=== PATIENT | male | born 1975 | race Caucasian/White ===

== ENCOUNTER 2017-02-03 12:11 | Emergency (ER) | payer MEDICARE, MEDICAID ==
--- NOTE | 2017-02-03 12:39 | ER Document Report ---
ED Extremity Problem, Lower - General Chief Complaint: Leg Swelling Stated Complaint: LOWER EXTREMITY SWELLING Notes: Patient is a 41-year-old male with history of autism presenting to the emergency department for swelling and pain to the left foot and ankle. This was onset yesterday. Patient's caretakers with him. Patient states that she was not with him yesterday, so she is unsure if he has tripped or fallen or injured himself. Patient saw a PA at his urgent care this morning who sent him over to the emergency department for concerns of possible DVT . TRAVEL OUTSIDE OF THE [place] IN LAST 30 DAYS: No - Related Data Allergies/Adverse Reactions: lactose Allergy (Verified 08/23/16 17:08) Penicillins Allergy (Verified 08/23/16 17:08) Past Medical History - Social History Family History: Reviewed & Not Pertinent Patient has suicidal ideation: No Patient has homicidal ideation: No - Past Medical History Cardiac Medical History: Denies: Hx Coronary Artery Disease, Hx Heart Attack, Hx Hypertension Pulmonary Medical History: Denies: Hx Asthma, Hx Bronchitis, Hx COPD, Hx Pneumonia Neurological Medical History: Denies: Hx Cerebrovascular Accident, Hx Seizures Renal/ Medical History: Denies: Hx Peritoneal Dialysis Musculoskeltal Medical History: Denies Hx Arthritis - Immunizations Hx Diphtheria, Pertussis, Tetanus Vaccination: No Physical Exam - Vital signs Vitals: Pulse Resp BP Pulse Ox 90 18 108/78 96 02/03/17 12:18 02/03/17 12:18 02/03/17 12:18 02/03/17 12:18 Course - Vital Signs Vital signs: Temp Pulse Resp BP Pulse Ox 90 18 108/78 96 02/03/17 12:18 02/03/17 12:18 02/03/17 12:18 02/03/17 12:18
--- NOTE | 2017-02-03 13:16 | ER Document Report ---
ED Medical Screen (RME) - General Time seen by provider: 12:30 TRAVEL OUTSIDE OF THE [place] IN LAST 30 DAYS: No - General Chief Complaint: Leg Swelling Stated Complaint: LOWER EXTREMITY SWELLING Notes: Patient is a 41-year-old male with history of autism presenting to the emergency department for swelling and pain to the left foot and ankle. This was onset yesterday. Patient's caretakers with him. Patient states that she was not with him yesterday, so she is unsure if he has tripped or fallen or injured himself. Patient saw a PA at his urgent care this morning who sent him over to the emergency department for concerns of possible DVT . (PAUL TENA) - Related Data Allergies/Adverse Reactions: lactose Allergy (Verified 08/23/16 17:08) Penicillins Allergy (Verified 08/23/16 17:08) Past Medical History - Past Medical History Cardiac Medical History: Denies: Hx Coronary Artery Disease, Hx Heart Attack, Hx Hypertension Pulmonary Medical History: Denies: Hx Asthma, Hx Bronchitis, Hx COPD, Hx Pneumonia Neurological Medical History: Denies: Hx Cerebrovascular Accident, Hx Seizures Renal/ Medical History: Denies: Hx Peritoneal Dialysis Musculoskeltal Medical History: Denies Hx Arthritis - Immunizations Hx Diphtheria, Pertussis, Tetanus Vaccination: No Physical Exam - Extremities General lower extremity: Other - Left calf tenderness, patient winces with touch , patient has good perfusion and pulses. Course - Re-evaluation Re-evalutation: 02/03/17 13:40 Patient with history of autism is here with his caregiver chief complaint of these limping since yesterday no known injury no known fall he is noncommunicative very agitated. On examination there might be little bit of mild swelling in the left calf otherwise get good pulses and perfusion he went to urgent care was uncooperative so they sent him here. Terms rest of his physical exam he is at baseline. I ordered an x-ray of his knee ankle foot an ultrasound he got over to radiology for gout 1 allow him to do the test. This time I have downgraded him over 2.5 she can be placed in a quiet room his mother is on the way take care of him I talked to Mar Jean-Baptiste his the APC is going to take care of him over and pod 5 to do his further assessment and evaluation and disposition. 02/03/17 13:41 I personally performed the services described in the documentation reviewed the documentation recorded by my scribe in my presence and it accurately and completely records my words and actions (VINICIO WHALEN) - Vital Signs Vital signs: Temp Pulse Resp BP Pulse Ox 90 18 108/78 96 02/03/17 12:18 02/03/17 12:18 02/03/17 12:18 02/03/17 12:18 Scribe Documentation - Scribe Written by Scribe:: Paul Tena 02/03/17 13:15 acting as scribe for :: Guerrero
--- NOTE | 2017-02-03 14:09 | ER Document Report ---
ED Extremity Problem, Lower - General Chief Complaint: Leg Swelling Stated Complaint: LOWER EXTREMITY SWELLING Mode of Arrival: Ambulatory Information source: Patient TRAVEL OUTSIDE OF THE [place] IN LAST 30 DAYS: No - HPI Patient complains to provider of: Pain Notes: Patient here with his caregiver. Patient is autistic and nonverbal. According to his caregiver yesterday when he arrived home from adult daycare they noticed he seemed to be limping on his left leg they were concerned that he had pain in his left calf. The patient is unable to give me any more information than this. The caregiver denies any fevers or known injury. There's been no vomiting. No other complaints. Not able to get an entire history or review of systems due to the patient's autism and lack of communication. - Related Data Allergies/Adverse Reactions: lactose Allergy (Verified 02/03/17 14:06) Penicillins Allergy (Verified 02/03/17 14:06) Past Medical History - Social History Smoking Status: Unknown if Ever Smoked Family History: Reviewed & Not Pertinent Patient has suicidal ideation: No Patient has homicidal ideation: No - Past Medical History Cardiac Medical History: Reports: Hx Hypercholesterolemia, Hx Hypertension Denies: Hx Coronary Artery Disease, Hx Heart Attack Pulmonary Medical History: Denies: Hx Asthma, Hx Bronchitis, Hx COPD, Hx Pneumonia Neurological Medical History: Denies: Hx Cerebrovascular Accident, Hx Seizures Renal/ Medical History: Denies: Hx Peritoneal Dialysis GI Medical History: Reports: Hx Gastroesophageal Reflux Disease Musculoskeltal Medical History: Denies Hx Arthritis Surgical Hx: Negative - Immunizations Hx Diphtheria, Pertussis, Tetanus Vaccination: No Review of Systems - Review of Systems -: Yes ROS unobtainable due to patient's medical condition Physical Exam - Vital signs Vitals: Pulse Resp BP Pulse Ox 90 18 108/78 96 02/03/17 12:18 02/03/17 12:18 02/03/17 12:18 02/03/17 12:18 - Notes Notes: GENERAL: alert, cooperative, nontoxic, no distress. HEAD: normocephalic, atraumatic EYES: conjunctiva pink without discharge, no external redness or swelling. EARS: no external swelling, no external redness NOSE: atraumatic, no external swelling MOUTH/THROAT: mucous membranes moist and pink NECK: soft, supple, full range of motion, no meningismus. CHEST: no distress, lungs clear and equal throughout. No wheezing, rales, rhonchi. CARDIAC: regular rate and rhythm, no murmur, normal capillary refill, normal pulses. BACK: full range of motion, no CVA tenderness. EXTREMITIES: full range of motion of all extremities. No redness, no swelling. No obvious tenderness on exam of the left leg. He normal pulse and sensation. NEURO: alert and oriented 3, no focal deficits, full range of motion of all extremities. PYSCH: appropriate mood, affect. Patient is cooperative. SKIN: pink, warm, dry, no rash. Course - Re-evaluation Re-evalutation: 02/03/17 15:57 Patient's nontoxic. Stable vitals. The patient has a completely benign exam at this time. Again the patient is autistic therefore it is very difficult getting any information from him. X-rays of the lower extremity and venous duplex are all negative. He has no obvious signs of infection at this time. 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 She verbalized an understanding of this. The patient's emergency department workup and current diagnosis were explained to the patient and or family. Follow-up instructions were provided. Medications if prescribed were discussed. Instructions for when to return to the emergency department including specific worrisome symptoms were discussed with the patient and/or family. - Vital Signs Vital signs: Temp Pulse Resp BP Pulse Ox 90 18 108/78 96 02/03/17 12:18 02/03/17 12:18 02/03/17 12:18 02/03/17 12:18 Discharge - Discharge Clinical Impression: Leg pain Qualifiers: Laterality: left Qualified Code(s): M79.605 - Pain in left leg Condition: Stable Disposition: HOME, SELF-CARE Instructions: Leg Pain Nonspecific ([facility]) Additional Instructions: Tylenol and Motrin as needed for pain. Follow up if not better in one week, follow-up sooner for increased pain, fever, redness, swelling, any further concerns.
[2017-02-03 16:05] VITALS: BP 110/70
--- NOTE | 2017-02-03 16:26 | XCELERA REPORT ---
[address] [address] Lower Extremity Venous Evaluation Name: JUAN RAMON MACKAY Age: 41 yrs Gender: Male : 1975 Patient Status: Emergency Patient Location: ER Study Date: 02/03/2017 03:38 PM Procedure: Color flow and duplex imaging of the veins of the left lower extremity as well as the right Common Femoral vein. Reason For Study: lle pain swelling r/o dvt autism Ordering Physician: VINICIO WHALEN Performed By: Kirsty Morales Right Sided Venous Evaluation The right common femoral vein is fully compressible. Spontaneous and phasic flow is present in the right common femoral vein. Left Sided Venous Evaluation Normal vessel filling wall to wall, compression and augmentation as well as Colour flow down to the infrageniculate veins. Critical Findings Called in to Vandana Krishna at 1530. Interpretation Summary No duplex evidence of DVT or obstruction in the left lower extremity nor in the right Common Femoral vein. : VINICIO WHALEN > Emeterio Lambert
== END 2017-02-03 16:03 | disposition home or self-care (01) ==
LOC: ER 12:11
DX: M79.605 Pain in left leg (principal); F84.0 Autistic disorder; I10 Essential (primary) hypertension; Z88.0 Allergy status to penicillin
CPT/HCPCS: 93971; 99284

== ENCOUNTER 2019-01-18 14:02 | Emergency (ER) | payer MEDICARE, MEDICAID ==
--- NOTE | 2019-01-18 14:57 | ER Document Report ---
ED Medical Screen (RME) - General Chief Complaint: Constipation Stated Complaint: CONSTIPATION Time Seen by Provider: 01/18/19 14:52 Primary Care Provider: BON MARISCAL MD [Primary Care Provider] - Follow up as needed TRAVEL OUTSIDE OF THE [place] 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 He is still urinating normally. He is eating and drinking without difficulty. Patient does not do well with getting a blood pressure or blood draws. Denies GRIGGS, fever, neck pain, URI, CP, or rash. I have treated and performed a rapid initial assessment of this patient. A comprehensive ED assessment and evaluation of the patient, analysis of test results and completion of medical decision making process will be conducted by additional ED providers. PHYSICAL EXAMINATION: GENERAL: Well-appearing, well-nourished and in no acute distress. A&Ox4. Answers questions appropriately. ABDOMEN: distended with mild generalized tenderness. BS present. - Related Data Allergies/Adverse Reactions: lactose Allergy (Verified 01/18/19 14:06) Penicillins Allergy (Verified 01/18/19 14:06) Past Medical History - Social History Chew tobacco use (# tins/day): No Frequency of alcohol use: None Drug Abuse: Prescription drugs - Past Medical History Cardiac Medical History: Reports: Hx Hypercholesterolemia, Hx Hypertension Denies: Hx Coronary Artery Disease, Hx Heart Attack Pulmonary Medical History: Denies: Hx Asthma, Hx Bronchitis, Hx COPD, Hx Pneumonia Neurological Medical History: Denies: Hx Cerebrovascular Accident, Hx Seizures Renal/ Medical History: Denies: Hx Peritoneal Dialysis GI Medical History: Reports: Hx Gastroesophageal Reflux Disease Musculoskeltal Medical History: Denies Hx Arthritis - Immunizations Hx Diphtheria, Pertussis, Tetanus Vaccination: No Physical Exam - Vital signs Vitals: Pulse Resp Pulse Ox 95 18 98 01/18/19 14:26 01/18/19 14:26 01/18/19 14:26 Course - Vital Signs Vital signs: Temp Pulse Resp BP Pulse Ox 95 18 98 01/18/19 14:26 01/18/19 14:26 01/18/19 14:26 Doctor's Discharge - Discharge Referrals: BON MARISCAL MD [Primary Care Provider] - Follow up as needed
--- NOTE | 2019-01-18 16:46 | RADIOLOGY REPORT (SQ) ---
EXAM DESCRIPTION: ACUTE ABDOMEN SERIES COMPLETED DATE/TIME: 01/18/2019 3:54 pm REASON FOR STUDY: no BM in 12 days, autistic, abd pain COMPARISON: None. NUMBER OF VIEWS: One view. TECHNIQUE: Upright radiographic image of the abdomen acquired. LIMITATIONS: Patient would not lie down FINDINGS: BOWEL GAS PATTERN: Dilatation of the colon with large amount of fecal material. CALCIFICATIONS: No suspicious calcifications. SOFT TISSUES: No gross mass or suggestion of organomegaly. HARDWARE: None in the abdomen. BONES: No acute fracture. No worrisome bone lesions. OTHER: No other significant finding. IMPRESSION: Obstipation. TECHNICAL DOCUMENTATION: JOB ID: [id number] [employer]- All Rights Reserved Reading location - IP/workstation name: [email or web address]
[2019-01-18] MEDS ORDERED: KETAMINE HCL INJ 500 MG/10 ML VIAL IM ONE (18:39)
[2019-01-18 19:27] LABS: ABSOLUTE BASOPHILS # (AUTO) 0.1 10^3/uL (0.0-0.2); ABSOLUTE LYMPHOCYTES (AUTO) 2.7 10^3/uL (0.5-4.7); ABSOLUTE MONOCYTES (AUTO) 1.1 10^3/uL (0.1-1.4); ABSOLUTE NEUT (AUTO) 7.4 10^3/uL (1.7-8.2); BASOPHILS % (AUTO) 0.5 % (0-2); EOSINOPHILS % (AUTO) 0.4 % (0-6); HEMATOCRIT 40.5 % (37.9-51.0); HEMOGLOBIN 14.1 g/dL (13.5-17.0); LYMPHOCYTES % (AUTO) 23.8 % (13-45); MEAN CORPUSCULAR HEMOGLOBIN 30.4 pg (27.0-33.4); MEAN CORPUSCULAR HGB CONC 34.8 g/dL (32.0-36.0); MEAN CORPUSCULAR VOLUME 87 fl (80-97); MONOCYTES % (AUTO) 9.4 % (3-13); PLATELET COUNT 217 10^3/uL (150-450); RED BLOOD COUNT 4.64 10^6/uL (4.35-5.55); RED CELL DISTRIBUTION WIDTH 13.6 % (11.5-14.0); SEGMENTED NEUTROPHILS % (AUTO) 65.9 % (42-78); TOTAL CELLS COUNTED % (AUTO) 100 %; WHITE BLOOD COUNT 11.2 10^3/uL (4.0-10.5)
[2019-01-18 19:46] LABS: ALANINE AMINOTRANSFERASE 26 U/L (21-72); ALBUMIN 4.9 g/dL (3.5-5.0); ALKALINE PHOSPHATASE 92 U/L (38-126); ANION GAP 17 (5-19); ASPARTATE AMINO TRANSFERASE 21 U/L (17-59); BILIRUBIN,DIRECT 0.2 mg/dL (0.0-0.4); BILIRUBIN,TOTAL 0.2 mg/dL (0.2-1.3); BLOOD UREA NITROGEN 10 mg/dL (7-20); CALCIUM 9.7 mg/dL (8.4-10.2); CARBON DIOXIDE 20 mmol/L (22-30); CHLORIDE 98 mmol/L (98-107); GLUCOSE 104 mg/dL (75-110); POTASSIUM 4.6 mmol/L (3.6-5.0); SODIUM 134.9 mmol/L (137-145); TOTAL PROTEIN 7.6 g/dL (6.3-8.2)
--- NOTE | 2019-01-18 20:05 | RADIOLOGY REPORT (SQ) ---
CT ABDOMEN PELVIS WITH IV CONTRAST HISTORY: Abdominal pain. COMPARISON: None. TECHNIQUE: CT scan of the abdomen and pelvis was performed with IV contrast. This exam was performed according to our departmental dose-optimization program, which includes automated exposure control, adjustment of the mA and/or kV according to patient size and/or use of iterative reconstruction technique. FINDINGS: The lung bases are clear without pleural or pericardial effusions. There is a small sliding hiatal hernia. The liver, spleen, pancreas, gallbladder, adrenal glands, and kidneys are unremarkable. No urinary stones are seen. The pelvic organs are also unremarkable. There is a large amount of stool in the rectum suggesting constipation. The remainder of the colon is distended with air. No small bowel obstruction is seen. No intraperitoneal free fluid or free air is seen. There is a chronic compression deformity of L1 with superimposed degenerative changes. The aorta and IVC are normal. No body wall hernia is seen. IMPRESSION: 1. Large amount of stool in the rectum suggesting constipation. 2. No diverticulitis or bowel obstruction.
[2019-01-18] MEDS ORDERED: MINERAL OIL 30 ML UDCUP PR ONE (20:24)
--- NOTE | 2019-01-18 21:44 | ER Document Report ---
Doctor's Note Notes: 01/18/19 21:41 Patient seen in conjunction with the physician technical services assistant. Please see his note correlate with this 1. In short the patient has abdominal distention and constipation. We are unable to obtain any meaningful history from the patient. He is severely autistic. Her physical exam is limited secondary to his level of agitation. Decision was made to proceed with conscious sedation. Please see procedure note below. Prior to procedural sedation was of able to confirm consent with mother over the telephone. This was done by nursing. Mallampati class II. ASA class I. Patient is found on CT scan to have no signs of obstruction, only significant constipation. Decision was made to attempt enema but this was unsuccessful. Decision was made to continue attempts as an outpatient. Procedure note, time of procedure 19:41 Patient seen and examined. Unable to place patient on the court recording monitor secondary to level of agitation. The patient was administered ketamine, 4 mg/kg IM. Once adequate sedation was achieved to allow it, we were able to place patient on a court recording monitor. During the course of sedation, patient had rectal exam, CT scan, enema performed. He tolerated this well, frequent neuro checks were done, the patient returning to baseline. 01/18/19 21:43
[2019-01-18 22:28] VITALS: BP 137/93
--- NOTE | 2019-01-18 22:48 | ER Document Report ---
ED General - General Chief Complaint: Constipation Stated Complaint: CONSTIPATION Time Seen by Provider: 01/18/19 14:52 Primary Care Provider: BON MARISCAL MD [Primary Care Provider] - Follow up as needed TRAVEL OUTSIDE OF THE [place] IN LAST 30 DAYS: No - Related Data Allergies/Adverse Reactions: lactose Allergy (Verified 01/18/19 14:06) Penicillins Allergy (Verified 01/18/19 14:06) Past Medical History - Social History Smoking Status: Never Smoker Chew tobacco use (# tins/day): No Frequency of alcohol use: None Drug Abuse: Prescription drugs Family History: Reviewed & Not Pertinent Patient has suicidal ideation: No Patient has homicidal ideation: No - Past Medical History Cardiac Medical History: Reports: Hx Hypercholesterolemia, Hx Hypertension Denies: Hx Coronary Artery Disease, Hx Heart Attack Pulmonary Medical History: Denies: Hx Asthma, Hx Bronchitis, Hx COPD, Hx Pneumonia Neurological Medical History: Denies: Hx Cerebrovascular Accident, Hx Seizures Renal/ Medical History: Denies: Hx Peritoneal Dialysis GI Medical History: Reports: Hx Gastroesophageal Reflux Disease Musculoskeletal Medical History: Denies Hx Arthritis - Immunizations Hx Diphtheria, Pertussis, Tetanus Vaccination: No Physical Exam - Vital signs Vitals: Pulse Resp Pulse Ox 95 18 98 01/18/19 14:26 01/18/19 14:26 01/18/19 14:26 Course - Vital Signs Vital signs: Temp Pulse Resp BP Pulse Ox 95 27 H 137/93 H 92 01/18/19 14:26 01/18/19 22:01 01/18/19 22:01 01/18/19 19:40 - Laboratory Result Diagrams: 01/18/19 19:15 01/18/19 19:15 Laboratory results interpreted by me: 01/18/19 01/18/19 19:15 19:15 WBC 11.2 H Sodium 134.9 L Carbon Dioxide 20 L Discharge - Discharge Clinical Impression: Constipation Qualifiers: Constipation type: unspecified constipation type Qualified Code(s): K59.00 - Constipation, unspecified Condition: Good Disposition: HOME, SELF-CARE Instructions: Constipation ([facility]), Laxative ([facility]) Additional Instructions: It has been determined the patient's problem is only constipation. We have discussed with you that he is going to need to be cleaned out from the top down. We have attempted to give him an enema but because we have to do this under sedation he does not retain fluid long enough for it to really be 100% beneficial. Given this type of a deterrent were going to have to attempt to just clean them out from above. There are multiple ways to do this and you will have to pick the best choice for him. My favorite and most gentle way is to use milk of magnesia. Milk of magnesia comes into flavors dejan and meant them meant is very chalky and the dejan is very sweet. You may take the flavor of your choice. Take the milk of magnesia and it comes with a measuring cup on top that looks like a shot Glass. Have the patient drink 2 of those before bed followed by 12 ounces of warm tap water and go to sleep. In the morning when he wakes up if he can drink something hot like a coffee or tea or even hot water it will stimulate him to have a nice fluid bowel movement. This is very gentle and is not one that will make him have a bowel movement in his pants uncontrollably. If for any reason this does not work you can use MiraLAX this is [id number] you can give 17 g every hour for 7 hours combined with 2 Dulcolax tablets and a bottle of Gatorade during that 7 hours. If you want to substitute a another liquid for Gatorade that is fine. But he will have a bowel movement with this over the course of time. The 17 g can be taken in a glass of water as will be described on the bottle. These are the 2 most gentle ways to do it you may also try a bottle of mag citrate and this you by at the pharmacy and he drinks the entire bottle. The luck with this is not as good as the ones above. After he has his bowel movement you should put him on a regime of taking the MiraLAX 17 g a day with a glass of water. He should also talk to his primary care provider about the continuation of checkups about his medical health to make sure that there is nothing is causing him to become constipated. Should you have any concerns or problems return to ER for recheck. Forms: Elevated Blood Pressure Referrals: BON MARISCAL MD [Primary Care Provider] - Follow up as needed
[2019-01-18] MEDS ORDERED: ONDANSETRON HCL INJ/PF 4 MG/2 ML SDV IV ONE (22:54)
== END 2019-01-18 23:00 | disposition home or self-care (01) ==
LOC: ER 14:02
DX: K59.00 Constipation, unspecified (principal); I10 Essential (primary) hypertension
CPT/HCPCS: 99284; 96374; 36415; 85025; 80053; 74022; 74177; J3490 ×2; J2405

== ENCOUNTER 2019-10-25 07:54 | Day surgery (SDC) | payer MEDICARE, MEDICAID ==
[~2019-10-25 07:54] MED LIST: PROPOFOL INJ 200 MG/20 ML VIAL IV ONE
[2019-10-25] MEDS ORDERED: MIDAZOLAM HCL SYRUP 10 MG/5 ML UDC ONE (08:00)
[2019-10-25] MEDS ORDERED: PROPOFOL INJ 200 MG/20 ML VIAL IV ONE (10:18)
[2019-10-25] MEDS ORDERED: KETAMINE HCL INJ 500 MG/10 ML VIAL ONE (10:26)
[2019-10-25 14:36] VITALS: BP 138/89
--- NOTE | 2019-10-25 17:20 | Operative Report ---
Operative Report DATE OF SURGERY: 10/25/19 Operative Report: The risks, benefits and alternatives of the procedure including the risk of bleeding, perforation requiring surgery have been explained to the patient in detail and informed consent has been obtained. Patient is placed in a left, lateral decubital position. He is taken to the operating room. A rectal examination is done which did not reveal any masses, tears or fissures. Upon introduction of the scope patient has a very bad prep I was not able to get to the cecum. The procedure was prematurely aborted. From what I could see of the rest of the colon there did not appear to be any obstruction felt that I did go to the right-hand side of the colon but true identification of the cecum could not be done because of the inadequate prep. The risks benefits and alternatives of the procedure explained to the patient in detail and informed consent is obtained.A GIF Olympus video scope was inserted into the patient's mouth and hypopharynx ,the esophagus is identified intubated and insufflated ,the scope was then advanced through the esophagus stomach and duodenum, retroflexion maneuver is done, the esophagus stomach and first and second portions of the duodenum examined PREOPERATIVE DIAGNOSIS: Chronic constipation rule out obstruction. Gastroesophageal reflux disease, dyspepsia POSTOPERATIVE DIAGNOSIS: Inadequate prep incomplete colonoscopy. Random biopsies obtained. Gastritis status post biopsy without Helicobacter pylori OPERATION: Colonoscopy with biopsy. EGD with biopsy SURGEON: JUDY TAMAYO ANESTHESIA: LMAC TISSUE REMOVED OR ALTERED: As noted above. COMPLICATIONS: None. ESTIMATED BLOOD LOSS: None. INTRAOPERATIVE FINDINGS: As noted above. PROCEDURE: Patient tolerated the procedure well. No immediate postprocedure complications are noted. Patient is discharged in good condition. Discharge date 10/25/2019. Discharge diet: Regular. Discharge activity: Regular. 2 to 3-week follow-up to discuss findings. Will need colonoscopy next year. Wait on pathology.
== END 2019-10-25 14:00 | disposition home or self-care (01) ==
LOC: END 07:54
PROVIDERS: ATTEND Internal Medicine Gastroenterology
DX: K29.50 Unspecified chronic gastritis without bleeding (principal); K52.9 Noninfective gastroenteritis and colitis, unspecified; Z79.899 Other long term (current) drug therapy; K21.9 Gastro-esophageal reflux disease without esophagitis; Z88.0 Allergy status to penicillin
CPT/HCPCS: 43239; 45380; 88342 ×2; 88305 ×2; 00811; J3490; J2704; A9270; 811

== ENCOUNTER 2019-11-19 17:29 | Inpatient (IN) | payer MEDICARE, MEDICAID ==
--- NOTE | 2019-11-19 17:59 | ER Document Report ---
ED General - General Chief Complaint: Fever Stated Complaint: FEVER,COUGH,SHORTNESS OF BREATH Primary Care Provider: KELSEY HAWLEY PA-C [Primary Care Provider] - Follow up as needed Information source: Patient TRAVEL OUTSIDE OF THE [place] IN LAST 30 DAYS: No - HPI Onset: Other - since last Monday Onset/Duration: Gradual Quality of pain: No pain Severity: Moderate Pain Level: Denies Associated symptoms: Nonproductive cough, Fever, Shortness of breath, Weakness Exacerbated by: Walking, Coughing Relieved by: Denies Similar symptoms previously: No Recently seen / treated by doctor: No Notes: 44 year old male with a history of Cerebral Palsy, Autism, HTN, HLD, GERD brought in by his halfway due to a cough, congestion, and fever since Monday. The patient had a Tmax of 102F over the weekend. EMS was able to obtain some but not all vital signs and and they found the patient to be hypoxic to 88% on RA. The patient is anxious and agitated at baseline and does not follow commands well or cooperate well. The patient's mother is his health care power of criminal defense attorney and I spoke with her on the phone and she gave me permission to sedated the patient and obtain an IV and labs given his chest xray in triage showed diffuse pneumonia. - Related Data Allergies/Adverse Reactions: lactose Allergy (Verified 11/19/19 17:43) Penicillins Allergy (Verified 11/19/19 17:43) Past Medical History - General Information source: POA - Power of Client Resolution Specialist, Outside Facility Records Cannot obtain history due to: Mentally challenged - Social History Smoking Status: Never Smoker Frequency of alcohol use: None Drug Abuse: None Lives with: Other - Retirement Family History: Reviewed & Not Pertinent Patient has suicidal ideation: No Patient has homicidal ideation: No - Past Medical History Cardiac Medical History: Reports: Hx Hypercholesterolemia, Hx Hypertension Denies: Hx Coronary Artery Disease, Hx Heart Attack Pulmonary Medical History: Denies: Hx Asthma, Hx Bronchitis, Hx COPD, Hx Pneumonia Neurological Medical History: Denies: Hx Cerebrovascular Accident, Hx Seizures - AUTISM, CEREBRAL PALSY Renal/ Medical History: Denies: Hx Peritoneal Dialysis GI Medical History: Reports: Hx Gastroesophageal Reflux Disease Musculoskeletal Medical History: Denies Hx Arthritis Psychiatric Medical History: Reports: Other - Autism, Cerebral Palsy - Immunizations Hx Diphtheria, Pertussis, Tetanus Vaccination: No Review of Systems - Review of Systems Constitutional: Fever EENT: No symptoms reported Cardiovascular: No symptoms reported Respiratory: Cough, Short of breath Gastrointestinal: No symptoms reported Genitourinary: No symptoms reported Male Genitourinary: No symptoms reported Musculoskeletal: No symptoms reported Skin: No symptoms reported Hematologic/Lymphatic: No symptoms reported Neurological/Psychological: No symptoms reported -: Yes All other systems reviewed and negative Physical Exam - Vital signs Vitals: Pulse Ox 80 L 11/19/19 19:00 - Notes Notes: GENERAL: Well-appearing, well-nourished and in no acute distress. HEAD: Atraumatic, normocephalic. EYES: Pupils equal round and reactive to light, extraocular movements intact, sclera anicteric, conjunctiva are normal. ENT: TMs normal, nares patent, oropharynx clear without exudates. Moist mucous membranes. NECK: Normal range of motion, supple without lymphadenopathy or JVD. LUNGS: Course breath sounds throughout with mild wheezes. HEART: Regular rate and rhythm without murmurs, rubs or gallops. ABDOMEN: Soft, nontender, normoactive bowel sounds. No guarding, no rebound. No masses appreciated. EXTREMITIES: Normal range of motion, no pitting or edema. No clubbing or cyanosis. NEUROLOGICAL: Cranial nerves II through XII grossly intact. Normal speech, normal gait. PSYCH: Agitated, not cooperative, baseline mental status for patient with Autism and CP per report of a care specialist who is with him. SKIN: Warm, Dry, normal turgor, no rashes or lesions noted. Course - Re-evaluation Re-evalutation: 11/19/19 21:58 The patient has diffuse pneumonia on Xray, he has a WBC of 3, and he has been febrile in his halfway. Patient has either viral or bacterial pneumonia. Will obtain a Flu swab but treat for bacterial pneumonia. Patient is technically outside the Tamiflu window since his symptoms started Monday but will likely add Tamiflu to his treatments if his flu comes back positive. Patient is very anxious and easily agitated due to his Autism and CP. I spoke with the patient's mother who gave me permission to use chemical sedation so we could obtain labs and diagnostic and also treat the patient. - Vital Signs Vital signs: Temp Pulse Resp BP Pulse Ox 22 H 96 11/19/19 20:00 11/19/19 20:00 - Laboratory Result Diagrams: 11/19/19 20:35 11/19/19 20:35 Laboratory results interpreted by me: 11/19/19 11/19/19 11/19/19 19:20 20:35 20:35 WBC 3.0 L RBC 3.71 L Hgb 11.2 L Hct 31.8 L Plt Count 112 L Sodium 133.4 L Chloride 93 L Calcium 7.7 L AST 65 H Urine Protein 100 H Urine Urobilinogen 4.0 H - Diagnostic Test Radiology reviewed: Image reviewed, Reports reviewed - EKG Interpretation by Me EKG shows normal: Sinus rhythm, Intervals, QRS Complexes, ST-T Waves Rate: Normal Rhythm: NSR [place]/QRS: Right axis deviation Additional EKG results interpreted by me: 11/19/19 21:58 low voltage Critical Care Note - Critical Care Note Total time excluding time spent on procedures (mins): 31 Discharge - Discharge Clinical Impression: Hypoxemia Pneumonia Qualifiers: Pneumonia type: due to unspecified organism Laterality: bilateral Lung location: unspecified part of lung Qualified Code(s): J18.9 - Pneumonia, unspecified organism Condition: Fair Disposition: ADMITTED INPATIENT Admitting Provider: Munir (Hospitalist) Unit Admitted: Telemetry Referrals: KELSEY HAWLEY PA-C [Primary Care Provider] - Follow up as needed
--- NOTE | 2019-11-19 18:00 | RADIOLOGY REPORT (SQ) ---
EXAM DESCRIPTION: CHEST SINGLE VIEW COMPLETED DATE/TIME: 11/19/2019 5:51 pm REASON FOR STUDY: bed 9 fever sepsis protocol COMPARISON: 05/23/2013 EXAM PARAMETERS: NUMBER OF VIEWS: One view. TECHNIQUE: Single frontal radiographic view of the chest acquired. RADIATION DOSE: NA LIMITATIONS: None. FINDINGS: LUNGS AND PLEURA: Diffuse opacities in both lungs scattered. No effusions. MEDIASTINUM AND HILAR STRUCTURES: No masses. Contour normal. HEART AND VASCULAR STRUCTURES: Heart enlarged. Vascular congestion. BONES: No acute findings. HARDWARE: None in the chest. OTHER: No other significant finding. IMPRESSION: Pneumonia. Vascular congestion. TECHNICAL DOCUMENTATION: JOB ID: [id number] 2010 [employer]- All Rights Reserved Reading location - IP/workstation name: [email or web address]
[2019-11-19] MEDS ORDERED: HALOPERIDOL LACTATE INJ 5 MG/1 ML VIAL IM ONE (18:08)
[2019-11-19] MEDS ORDERED: NORMAL SALINE 1000 ML 1,000 ML IV ONE ×2 (18:08→21:52)
[2019-11-19] MEDS ORDERED: LORAZEPAM INJ 2 MG/1 ML VIAL IM ONE (18:09)
[2019-11-19] MEDS ORDERED: CEFTRIAXONE INJ 1000 MG VIAL IV ONE (18:09)
[2019-11-19] MEDS ORDERED: AZITHROMYCIN INJ 500 MG VIAL IV ONE (18:11)
[2019-11-19] MEDS ORDERED: ZIPRASIDONE MESYLATE INJ/PF 20 MG SDV IM ONE (19:43)
[2019-11-19 20:42] LABS: APPEARANCE,URINE SLIGHTLY-CLOUDY; BILIRUBIN,URINE NEGATIVE (NEGATIVE); COLOR,URINE AMBER; GLUCOSE, URINE NEGATIVE (NEGATIVE); KETONES,URINE NEGATIVE (NEGATIVE); LEUKOCYTE ESTERASE,URINE NEGATIVE (NEGATIVE); NITRITE,URINE NEGATIVE (NEGATIVE); PROTEIN,URINE 100 mg/dL (NEGATIVE); URINE SPECIFIC GRAVITY 1.034
[2019-11-19 20:59] LABS: VENOUS BLOOD BASE EXCESS 1.4 mmol/L; VENOUS BLOOD HCO3 28.2 mmol/L (20-32); VENOUS BLOOD PH 7.34 (7.30-7.42)
[2019-11-19 21:15] LABS: ABSOLUTE LYMPHOCYTES (AUTO) 0.7 10^3/uL (0.5-4.7); ABSOLUTE MONOCYTES (AUTO) 0.3 10^3/uL (0.1-1.4); BASOPHILS % (AUTO) 0.5 % (0-2); HEMATOCRIT 31.8 % (37.9-51.0); HEMOGLOBIN 11.2 g/dL (13.5-17.0); LYMPHOCYTES % (AUTO) 24.6 % (13-45); MEAN CORPUSCULAR HEMOGLOBIN 30.2 pg (27.0-33.4); MEAN CORPUSCULAR HGB CONC 35.2 g/dL (32.0-36.0); MEAN CORPUSCULAR VOLUME 86 fl (80-97); MONOCYTES % (AUTO) 9.9 % (3-13); PLATELET COUNT 112 10^3/uL (150-450); RED BLOOD COUNT 3.71 10^6/uL (4.35-5.55); TOTAL CELLS COUNTED % (AUTO) 100 %
[2019-11-19 21:20] LABS: INTERNATIONAL RATION (INR) 0.99; PROTHROMBIN TIME 13.1 SEC (11.4-15.4)
[2019-11-19 21:34] LABS: ALBUMIN 3.8 g/dL (3.5-5.0); ALKALINE PHOSPHATASE 63 U/L (38-126); ANION GAP 11 (5-19); ASPARTATE AMINO TRANSFERASE 65 U/L (17-59); BILIRUBIN,DIRECT 0.2 mg/dL (0.0-0.4); BILIRUBIN,TOTAL 0.3 mg/dL (0.2-1.3); BLOOD UREA NITROGEN 16 mg/dL (7-20); CALCIUM 7.7 mg/dL (8.4-10.2); CARBON DIOXIDE 29 mmol/L (22-30); CHLORIDE 93 mmol/L (98-107); GLUCOSE 94 mg/dL (75-110); POTASSIUM 3.7 mmol/L (3.6-5.0); TOTAL PROTEIN 6.4 g/dL (6.3-8.2)
[2019-11-19 21:46] LABS: NT PRO BNP 109 pg/mL (<125); TROPONIN I < 0.012 ng/mL
[2019-11-19] MEDS ORDERED: IPRATROPIUM/ALBUTEROL 0.5-2.5 MG/3 ML AMPUL NEB PRN (21:56)
[2019-11-19] MEDS ORDERED: ACETAMINOPHEN 325 MG TABLET PO PRN (21:56)
[2019-11-19] MEDS ORDERED: MAGNESIUM HYDROXIDE SUSP 30 ML UDCUP PO SCH (22:15)
--- NOTE | 2019-11-19 22:22 | EKG REPORT ---
SEVERITY:- BORDERLINE ECG - SINUS RHYTHM RIGHT AXIS DEVIATION LOW VOLTAGE THROUGHOUT : Confirmed by: Ari Desir MD 19-Nov-2019 22:21:24
[2019-11-19] MEDS ORDERED: CEFTRIAXONE 1 GM/D5W RTU 1 GM/50 ML RTUPB IV ONE (23:00)
--- NOTE | 2019-11-19 23:05 | RADIOLOGY REPORT (SQ) ---
EXAM DESCRIPTION: Rad[facility]: XR ABDOMEN 2 VIEWS SUPINE ERECT Views: 2 CLINICAL HISTORY: 44 years Male; abd pain; COMPARISON: 02/21/2012 FINDINGS: Supine and erect AP abdomen: There is moderate diffuse colonic fecal retention, without colonic distention. No small bowel distention. No air-fluid levels or free air. No pneumatosis. No suspicious calcifications. IMPRESSION: 1. Moderate colonic fecal retention, but no small bowel distention.
[2019-11-19 23:24] LABS: A TYPE INFLUENZA AG NEGATIVE (NEGATIVE)
[2019-11-19 23:25] LABS: B INFLUENZA AG NEGATIVE (NEGATIVE)
[2019-11-19] MEDS ORDERED: LACTULOSE SYRUP 20 GM/30 ML UDCUP PO ONE (23:59)
[2019-11-20] MEDS: NORMAL SALINE 1000 ML 1,000 ML IV PRN ×2 (00:09→05:59)
[2019-11-20] MEDS: QUETIAPINE FUMARATE 100 MG TABLET PO SCH ×4 (00:30→23:05)
[2019-11-20] MEDS ORDERED: FLUTICASONE NASAL SPRAY 50 MCG/SPRY 120 SPRAY/16 GM ONE (00:33)
[2019-11-20] MEDS ORDERED: AZITHROMYCIN INJ 500 MG VIAL IV ONE (00:33)
[2019-11-20] MEDS: FLUTICASONE NASAL SPRAY 50 MCG/SPRY 120 SPRAY/16 GM NASL SCH ×4 (00:37→23:07)
[2019-11-20] MEDS: HEPARIN SOD (PORCINE) 5,000 UNIT/ML 1 ML VIAL SUBCUT SCH ×4 (00:38→22:57)
[2019-11-20] MEDS: LORAZEPAM INJ 2 MG/1 ML VIAL IV PRN ×4 (00:53→19:11)
[2019-11-20] MEDS ORDERED: LACTULOSE SYRUP 20 GM/30 ML UDCUP PR ONE (00:58)
[2019-11-20] MEDS: IPRATROPIUM/ALBUTEROL 0.5-2.5 MG/3 ML AMPUL NEB SCH ×4 (01:13→22:14)
[2019-11-20 02:12] LABS: ARTERIAL BLOOD BASE EXCESS 0.9 mmol/L; ARTERIAL BLOOD FIO2 6L; ARTERIAL BLOOD HCO3 25.4 mmol/L (20-24); ARTERIAL BLOOD O2 SATURATION 83.2 % (94-98); ARTERIAL BLOOD PH 7.42 (7.35-7.45); ARTERIAL BLOOD PO2 46.4 mmHg (80-100); ARTERIAL BLOOD TOTAL CO2 26.6 mmol/L (23-27)
--- NOTE | 2019-11-20 06:17 | PDOC H&P ---
History of Present Illness Admission Date/PCP: 11/19/19 22:14 KELSEY HAWLEY PA-C Patient complains of: Patient nonverbal appearing short of breath History of Present Illness: JUAN RAMON MACKAY is a 44 year old male with a past medical history of cerebral palsy, severe autism requiring 100% care and recurrent fecal impaction presents with for 5 days of nonproductive cough appearing short of breath is brought to the emergency room for evaluation by his sister. His mother is power of district attorney. He is found in distress with tachypnea, tachycardia, leukopenia, thrombocyto penia, bilateral lung infiltrate and fecal impaction on imaging. Patient is nonverbal and history is obtained by the record and sister. She states he was exposed to someone with upper respiratory symptoms approximately a week ago. There is no evidence of influenza or vomiting. Patient requiring several doses of IV Ativan for IV placement and medication. He is arousable to noxious stimuli only but protecting his airway. ABG reveals hypoxia and is placed on 100% nonrebreather. Past Medical History Cardiac Medical History: Reports: Hyperlipidema, Hypertension Denies: Coronary Artery Disease, Myocardial Infarction Pulmonary Medical History: Denies: Asthma, Bronchitis, Chronic Obstructive Pulmonary Disease (COPD), Pneumonia Neurological Medical History: Denies: Seizures - AUTISM, CEREBRAL PALSY GI Medical History: Reports: Gastroesophageal Reflux Disease Musculoskeltal Medical History: Denies: Arthritis Psychiatric Medical History: Reports: Other - Autism, Cerebral Palsy Hematology: Denies: Anemia Social History Information Source: Relative, [facility] Records Lives with: Other - Snf Smoking Status: Never Smoker Frequency of Alcohol Use: None Hx Recreational Drug Use: No Drugs: None - Advance Directive Resuscitation Status: Full Code Family History Family History: Hypertension Parental Family History Reviewed: Yes Children Family History Reviewed: Yes Sibling(s) Family History Reviewed.: Yes Medication/Allergy Home Medications: Acetaminophen [Mapap] 500 mg PO PRN PRN 08/22/16 Diazepam 5 mg PO PRN PRN 08/22/16 Escitalopram Oxalate 20 mg PO DAILY 08/22/16 Fexofenadine HCl [Silvina] 180 mg PO QHS 08/22/16 Lactulose [Constulose] 10 gm PO PRN PRN 08/22/16 Linaclotide [Linzess] 290 mcg PO DAILY 08/22/16 Magnesium Hydroxide [Milk Of Magnesia] 800 mg PO QHS PRN 08/22/16 Omeprazole 20 mg PO DAILY 08/22/16 Oxcarbazepine [Trileptal] 300 mg PO TID 08/22/16 Quetiapine Fumarate 300 mg PO TID 08/22/16 Zolpidem Tartrate 5 mg PO QHS PRN 08/22/16 Allergies/Adverse Reactions: lactose Allergy (Verified 11/19/19 17:43) Penicillins Allergy (Verified 11/19/19 17:43) Review of Systems ROS unobtainable: Due to mental status Physical Exam Vital Signs: Temp Pulse Resp BP Pulse Ox 98.4 F 109 H 35 H 132/73 H 96 11/20/19 00:23 11/20/19 02:00 11/20/19 01:14 11/20/19 00:23 11/20/19 01:14 Intake & Output 11/18/19 11/19/19 11/20/19 11:59 11:59 11:59 Intake Total 3260 Output Total 0 Balance 3260 Weight 85 kg General appearance: PRESENT: mild distress, well-nourished. ABSENT: cooperative, disheveled, well-developed Head exam: PRESENT: atraumatic, normocephalic Eye exam: PRESENT: conjunctiva pink, EOMI, PERRLA. ABSENT: scleral icterus Ear exam: PRESENT: normal external ear exam Mouth exam: PRESENT: moist, tongue midline Neck exam: ABSENT: carotid bruit, JVD, lymphadenopathy, thyromegaly Respiratory exam: PRESENT: accessory muscle use, crackles, prolonged expiratory phas, retraction, rhonchi, symmetrical, tachypnea Cardiovascular exam: PRESENT: tachycardia. ABSENT: diastolic murmur, rubs, systolic murmur Pulses: PRESENT: normal dorsalis pedis pul Vascular exam: PRESENT: normal capillary refill GI/Abdominal exam: PRESENT: distended, hypoactive bowel sounds, normal bowel sounds, soft. ABSENT: guarding, mass, organolmegaly, rebound, tenderness Rectal exam: PRESENT: deferred Extremities exam: PRESENT: full ROM. ABSENT: calf tenderness, clubbing, pedal edema Neurological exam: PRESENT: altered, CN II-XII grossly intact. ABSENT: motor sensory deficit Psychiatric exam: PRESENT: agitated Skin exam: PRESENT: dry, intact, warm. ABSENT: cyanosis, rash Results Laboratory Results: 11/19/19 20:35 11/19/19 20:35 11/19/19 11/19/19 11/19/19 19:20 20:35 20:35 WBC 3.0 L RBC 3.71 L Hgb 11.2 L Hct 31.8 L MCV 86 MCH 30.2 MCHC 35.2 RDW 14.0 Plt Count 112 L Seg Neutrophils % 65.0 Carbonic Acid HCO3/H2CO3 Ratio ABG pH ABG pCO2 ABG pO2 ABG HCO3 ABG O2 Saturation ABG Base Excess VBG pH VBG pCO2 VBG HCO3 VBG Base Excess FiO2 Sodium 133.4 L Potassium 3.7 Chloride 93 L Carbon Dioxide 29 Anion Gap 11 BUN 16 Creatinine 0.94 Est GFR ( Amer) > 60 Glucose 94 Lactic Acid Calcium 7.7 L Total Bilirubin 0.3 AST 65 H Alkaline Phosphatase 63 Total Protein 6.4 Albumin 3.8 Urine Color WALTER Urine Appearance SLIGHTLY-CLOUDY Urine pH 5.0 Ur Specific [place] 1.034 Urine Protein 100 H Urine Glucose (UA) NEGATIVE Urine Ketones NEGATIVE Urine Blood NEGATIVE Urine Nitrite NEGATIVE Ur Leukocyte Esterase NEGATIVE Urine WBC (Auto) 4 Urine RBC (Auto) 2 11/19/19 11/19/19 11/20/19 20:35 20:35 01:57 WBC RBC Hgb Hct MCV MCH MCHC RDW Plt Count Seg Neutrophils % Carbonic Acid 1.20 HCO3/H2CO3 Ratio 21:1 ABG pH 7.42 ABG pCO2 40.0 ABG pO2 46.4 L ABG HCO3 25.4 H ABG O2 Saturation 83.2 L ABG Base Excess 0.9 VBG pH 7.34 VBG pCO2 54.0 VBG HCO3 28.2 VBG Base Excess 1.4 FiO2 6L Sodium Potassium Chloride Carbon Dioxide Anion Gap BUN Creatinine Est GFR ( Amer) Glucose Lactic Acid 1.8 Calcium Total Bilirubin AST Alkaline Phosphatase Total Protein Albumin Urine Color Urine Appearance Urine pH Ur Specific [place] Urine Protein Urine Glucose (UA) Urine Ketones Urine Blood Urine Nitrite Ur Leukocyte Esterase Urine WBC (Auto) Urine RBC (Auto) 11/19/19 20:35 Troponin I < 0.012 NT-Pro-B Natriuret Pep 109 Impressions: Chest X-Ray 11/19/19 17:35 IMPRESSION: Pneumonia. Vascular congestion. Abdomen X-Ray 11/19/19 22:02 IMPRESSION: 1. Moderate colonic fecal retention, but no small bowel distention. Assessment and Plan - Diagnosis (1) Pneumonia Qualifiers: Pneumonia type: due to unspecified organism Laterality: bilateral Lung location: unspecified part of lung Qualified Code(s): J18.9 - Pneumonia, unspecified organism Is this a current diagnosis for this admission?: Yes Plan: Pneumonia care set deployed, albuterol, Atrovent as tolerated. Follow-up CBC and blood culture (2) Hypoxemia Is this a current diagnosis for this admission?: Yes Plan: Secondary #1, supplemental oxygen, follow-up ABG (3) Fecal impaction Is this a current diagnosis for this admission?: Yes Plan: No evidence of vomiting, lactulose enema ordered strict I's and O's. (4) Cerebral palsy Is this a current diagnosis for this admission?: Yes Plan: Supportive care, regular contact with power of district attorney for goals of care. - Time Time Spent with patient: 25-34 minutes - Inpatient Certification Medical Necessity: Need Close Monitoring Due to Risk of Patient Decompensation
[2019-11-20 06:28] LABS: ABSOLUTE MONOCYTES (AUTO) 0.2 10^3/uL (0.1-1.4); ABSOLUTE NEUT (AUTO) 1.9 10^3/uL (1.7-8.2); BASOPHILS % (AUTO) 0.5 % (0-2); HEMATOCRIT 31.1 % (37.9-51.0); LYMPHOCYTES % (AUTO) 32.1 % (13-45); MEAN CORPUSCULAR HEMOGLOBIN 30.6 pg (27.0-33.4); MEAN CORPUSCULAR HGB CONC 35.4 g/dL (32.0-36.0); MEAN CORPUSCULAR VOLUME 87 fl (80-97); MONOCYTES % (AUTO) 7.7 % (3-13); RED BLOOD COUNT 3.59 10^6/uL (4.35-5.55); RED CELL DISTRIBUTION WIDTH 13.9 % (11.5-14.0); SEGMENTED NEUTROPHILS % (AUTO) 59.7 % (42-78); TOTAL CELLS COUNTED % (AUTO) 100 %; WHITE BLOOD COUNT 3.2 10^3/uL (4.0-10.5)
[2019-11-20 06:45] LABS: ARTERIAL BLOOD BASE EXCESS -0.2 mmol/L; ARTERIAL BLOOD H2CO3 1.26 mmol/L (1.05-1.35); ARTERIAL BLOOD HCO3 24.8 mmol/L (20-24); ARTERIAL BLOOD O2 SATURATION 94.5 % (94-98); ARTERIAL BLOOD PCO2 41.7 mmHg (35-45); ARTERIAL BLOOD PH 7.39 (7.35-7.45); ARTERIAL BLOOD PO2 72.6 mmHg (80-100); ARTERIAL BLOOD TOTAL CO2 26.1 mmol/L (23-27)
[2019-11-20 06:46] LABS: ARTERIAL BLOOD FIO2 100%
[2019-11-20 06:56] LABS: ALBUMIN 3.1 g/dL (3.5-5.0); ALKALINE PHOSPHATASE 54 U/L (38-126); ANION GAP 9 (5-19); ASPARTATE AMINO TRANSFERASE 69 U/L (17-59); BILIRUBIN,DIRECT 0.2 mg/dL (0.0-0.4); BILIRUBIN,TOTAL 0.2 mg/dL (0.2-1.3); BLOOD UREA NITROGEN 12 mg/dL (7-20); CALCIUM 7.2 mg/dL (8.4-10.2); CARBON DIOXIDE 26 mmol/L (22-30); CHLORIDE 102 mmol/L (98-107); GLUCOSE 105 mg/dL (75-110); TOTAL PROTEIN 5.8 g/dL (6.3-8.2)
[2019-11-20] MEDS ORDERED: INFLUENZA QUAD (6MOS+) 2019-20 VAC 0.5 ML SYR IM ONE (06:56)
[2019-11-20 07:15] LABS: PLATELET COUNT 93 10^3/uL (150-450)
[2019-11-20] MEDS ORDERED: LACTULOSE SYRUP 20 GM/30 ML UDCUP PO SCH ×2 (10:00→18:00)
[2019-11-20] MEDS: OXCARBAZEPINE 150 MG TABLET PO SCH ×2 (13:10→18:20)
[2019-11-20] MEDS: GUAIFENESIN SYRP 200 MG/10 ML UDC PO SCH ×3 (13:10→23:06)
[2019-11-20] MEDS ORDERED: (PENDING PHARMACY ID) (Quetiapine Fumarate [Quetiapine Fumarate] 300 MG) PO SCH (14:00)
[2019-11-20] MEDS ORDERED: (PENDING PHARMACY ID) (Oxcarbazepine [Trileptal] 300 MG) PO SCH (14:00)
--- NOTE | 2019-11-20 14:27 | PDOC PROGRESS REPORT ---
Subjective Progress Note for:: 11/20/19 Subjective:: The patient is a 44-year-old male with a past medical history of cerebral palsy, severe autism requiring 100% care, recurrent fecal impaction, hypertension, hyperlipidemia, GERD who was admitted to 1120 with acute respiratory failure with hypoxia secondary to bilateral pneumonia and fecal impaction. The patient was seen on morning rounds with his sister, Leticia, present. She confirms that the patient lives at a alf, is primarily nonverbal, but maintains oxygen saturations on room air and is ambulatory at baseline. She does admit that he has a longstanding history of GERD/reflux and that they have been recently attempting to teach him not to spit which she believes may have confused his ability to manage oral secretions and expectorate his productive cough. She also confirms that he has had multiple episodes of fecal impaction requiring medical intervention; has not yet had a colonoscopy though this is planned in the near future. She confirms that his respiratory distress is significantly improved from time of admission. She believes that he continues to have low-grade temperatures. Otherwise ROS is limited secondary to baseline mental status. At time of exam, the patient was noted to be in moderate distress with tachypnea, retractions, grunting, and hypoxia while on supplemental oxygen via nonrebreather. Plan of care discussed with nursing in detail. Patient's mother was contacted this afternoon and provided an update by phone. Unfortunately, she is sick and will not be able to visit while he is in the hospital (flulike symptoms). She is agreeable to having plan of care and progress reviewed with the patient's sister on a day-to-day basis but would like to have a phone call should there be any significant changes in patient's clinical condition. Reason For Visit: AUTISIM C PNEUMONIA Physical Exam Vital Signs: Temp Pulse Resp BP Pulse Ox 98.8 F 109 H 38 H 108/68 90 L 11/20/19 11:13 11/20/19 11:13 11/20/19 11:13 11/20/19 11:13 11/20/19 11:13 Intake & Output 11/19/19 11/20/19 11/21/19 06:59 06:59 06:59 Intake Total 3310 1802 Output Total 1220 750 Balance 2090 1052 Weight 85 kg General appearance: PRESENT: obese, severe distress, well-developed, well-nou rished Head exam: PRESENT: atraumatic, normocephalic Eye exam: PRESENT: conjunctiva pink, EOMI, PERRLA. ABSENT: scleral icterus Ear exam: PRESENT: normal external ear exam Mouth exam: PRESENT: moist, tongue midline Neck exam: ABSENT: carotid bruit, JVD, lymphadenopathy, thyromegaly Respiratory exam: PRESENT: rhonchi, symmetrical, unlabored, wheezes, other - NRB. ABSENT: rales Cardiovascular exam: PRESENT: RRR, +S1, +S2, tachycardia. ABSENT: diastolic murmur, rubs, systolic murmur Pulses: PRESENT: normal dorsalis pedis pul Vascular exam: PRESENT: normal capillary refill GI/Abdominal exam: PRESENT: diminished bowel sounds, distended, soft. ABSENT: guarding, mass, organolmegaly, rebound, tenderness Rectal exam: PRESENT: deferred Extremities exam: PRESENT: full ROM - moves all extremities. ABSENT: calf tenderness, clubbing, pedal edema Neurological exam: PRESENT: alert, awake, oriented to person, CN II-XII grossly intact, other - Responds well to sister; followed simple directions. Does not interact with me.. ABSENT: motor sensory deficit Psychiatric exam: PRESENT: appropriate affect, normal mood, other - per patient's baseline. ABSENT: homicidal ideation, suicidal ideation Skin exam: PRESENT: dry, intact, pallor, warm. ABSENT: cyanosis, rash Results Laboratory Results: 11/20/19 05:36 11/20/19 05:36 11/19/19 11/19/19 11/19/19 19:20 20:35 20:35 WBC 3.0 L RBC 3.71 L Hgb 11.2 L Hct 31.8 L MCV 86 MCH 30.2 MCHC 35.2 RDW 14.0 Plt Count 112 L Seg Neutrophils % 65.0 Carbonic Acid HCO3/H2CO3 Ratio ABG pH ABG pCO2 ABG pO2 ABG HCO3 ABG O2 Saturation ABG Base Excess VBG pH VBG pCO2 VBG HCO3 VBG Base Excess FiO2 Sodium 133.4 L Potassium 3.7 Chloride 93 L Carbon Dioxide 29 Anion Gap 11 BUN 16 Creatinine 0.94 Est GFR ( Amer) > 60 Glucose 94 Lactic Acid Calcium 7.7 L Total Bilirubin 0.3 AST 65 H Alkaline Phosphatase 63 Total Protein 6.4 Albumin 3.8 Urine Color WALTER Urine Appearance SLIGHTLY-CLOUDY Urine pH 5.0 Ur Specific [place] 1.034 Urine Protein 100 H Urine Glucose (UA) NEGATIVE Urine Ketones NEGATIVE Urine Blood NEGATIVE Urine Nitrite NEGATIVE Ur Leukocyte Esterase NEGATIVE Urine WBC (Auto) 4 Urine RBC (Auto) 2 11/19/19 11/19/19 11/20/19 20:35 20:35 01:57 WBC RBC Hgb Hct MCV MCH MCHC RDW Plt Count Seg Neutrophils % Carbonic Acid 1.20 HCO3/H2CO3 Ratio 21:1 ABG pH 7.42 ABG pCO2 40.0 ABG pO2 46.4 L ABG HCO3 25.4 H ABG O2 Saturation 83.2 L ABG Base Excess 0.9 VBG pH 7.34 VBG pCO2 54.0 VBG HCO3 28.2 VBG Base Excess 1.4 FiO2 6L Sodium Potassium Chloride Carbon Dioxide Anion Gap BUN Creatinine Est GFR ( Amer) Glucose Lactic Acid 1.8 Calcium Total Bilirubin AST Alkaline Phosphatase Total Protein Albumin Urine Color Urine Appearance Urine pH Ur Specific [place] Urine Protein Urine Glucose (UA) Urine Ketones Urine Blood Urine Nitrite Ur Leukocyte Esterase Urine WBC (Auto) Urine RBC (Auto) 11/20/19 11/20/19 11/20/19 05:36 05:36 05:50 WBC 3.2 L RBC 3.59 L Hgb 11.0 L Hct 31.1 L MCV 87 MCH 30.6 MCHC 35.4 RDW 13.9 Plt Count 93 L Seg Neutrophils % 59.7 Carbonic Acid 1.26 HCO3/H2CO3 Ratio 19:1 ABG pH 7.39 ABG pCO2 41.7 ABG pO2 72.6 L ABG HCO3 24.8 H ABG O2 Saturation 94.5 ABG Base Excess -0.2 VBG pH VBG pCO2 VBG HCO3 VBG Base Excess FiO2 100% Sodium 137.1 Potassium 4.0 Chloride 102 Carbon Dioxide 26 Anion Gap 9 BUN 12 Creatinine 0.77 Est GFR ( Amer) > 60 Glucose 105 Lactic Acid Calcium 7.2 L Total Bilirubin 0.2 AST 69 H Alkaline Phosphatase 54 Total Protein 5.8 L Albumin 3.1 L Urine Color Urine Appearance Urine pH Ur Specific [place] Urine Protein Urine Glucose (UA) Urine Ketones Urine Blood Urine Nitrite Ur Leukocyte Esterase Urine WBC (Auto) Urine RBC (Auto) 11/19/19 20:35 Troponin I < 0.012 NT-Pro-B Natriuret Pep 109 Impressions: Chest X-Ray 11/19/19 17:35 IMPRESSION: Pneumonia. Vascular congestion. Abdomen X-Ray 11/19/19 22:02 IMPRESSION: 1. Moderate colonic fecal retention, but no small bowel distention. Assessment and Plan - Diagnosis (1) Acute respiratory failure with hypoxia Is this a current diagnosis for this admission?: Yes Plan: Secondary to bilateral pneumonia. Blood cultures pending. Sputum culture not obtained; patient is not able to cooperate with expectorating sample. Patient is to be upgraded to IMCU today on continuous cardiac telemetry. He is provided supplemental oxygen via high flow nasal cannula to maintain saturations greater than 90%. Continue scheduled and as needed nebulizer treatments. Continue empiric treatment with IV azithromycin and Rocephin. Start Mucomyst nebulizer treatment twice daily. Scheduled Robitussin 4 times daily. IV Solu-Medrol 20 mg twice daily. Chest physiotherapy with vest twice daily. Keep HOB elevated >30 degrees Discussed patient w/ Dr. Doherty, firmware manager, who did a bedside assessment. Greatly appreciate his evaluation and recommendations. (2) Pneumonia Qualifiers: Pneumonia type: due to unspecified organism Laterality: bilateral Lung location: unspecified part of lung Qualified Code(s): J18.9 - Pneumonia, unsp ecified organism Is this a current diagnosis for this admission?: Yes Plan: CXR suboptimal r/t poor inspiratory effort (patient can not follow directions). Shows bilateral pneumonia. Cultures and antibiotics as above. Remaining plan as above. (3) Fecal impaction Is this a current diagnosis for this admission?: Yes Plan: No nausea or vomiting. Does have a distended abdomen with hypoactive bowel sounds, however, it is difficult to hear of air he is loud, snoring respirations. Start Dulcolax suppository twice daily. Continue home dose p.o. lactulose. Continue daily milk of magnesia. Consider enema. (4) Autism Is this a current diagnosis for this admission?: Yes Plan: Continue home medications regiment. Supportive care. Minimize interventions/equipment/loud sounds as able. Appreciate family's support who have stayed around the clock. Avoid sedation/restraints that would exacerbate confusion/combativeness. Per family, responds well to discussion about [address], [place], [place] for distraction. - Time Time Spent with patient: 35 or more minutes
[2019-11-20] MEDS ORDERED: ACETAMINOPHEN 650 MG SUPP.RECT PR PRN (15:04)
[2019-11-20 16:03] LABS: ARTERIAL BLOOD BASE EXCESS 1.7 mmol/L; ARTERIAL BLOOD H2CO3 1.14 mmol/L (1.05-1.35); ARTERIAL BLOOD HCO3 25.7 mmol/L (20-24); ARTERIAL BLOOD O2 SATURATION 92.1 % (94-98); ARTERIAL BLOOD PH 7.45 (7.35-7.45); ARTERIAL BLOOD PO2 59.9 mmHg (80-100); ARTERIAL BLOOD TOTAL CO2 26.9 mmol/L (23-27)
[2019-11-20 16:25] LABS: ARTERIAL BLOOD FIO2 HF 60
[2019-11-20] MEDS ORDERED: BISACODYL 10 MG SUPP.RECT PR SCH (18:00)
[2019-11-20] MEDS ORDERED: LACTULOSE 20 GM PO SCH (18:00)
[2019-11-20] MEDS ORDERED: ACETYLCYSTEINE 20% SOLN 800 MG/4 ML VIAL.NEB NEB SCH (20:00)
[2019-11-20] MEDS ORDERED: METHYLPREDNISOLONE INJ 40 MG/1 ML SDV IV SCH (22:00)
[2019-11-20] MEDS ORDERED: AZITHROMYCIN 500 MG in DEXTROSE 5%-WATER 250 ML IV SCH (22:00)
[2019-11-20] MEDS ORDERED: CEFTRIAXONE 1 GM/D5W RTU 1 GM/50 ML RTUPB IV SCH (22:00)
[2019-11-20] MEDS ORDERED: MAGNESIUM HYDROXIDE SUSP 30 ML UDCUP PO SCH (22:15)
[2019-11-21] MEDS: LORAZEPAM INJ 2 MG/1 ML VIAL IV PRN ×2 (00:23→23:34)
[2019-11-21] MEDS ORDERED: PROPOFOL INJ 200 MG/20 ML VIAL IV ONE ×2 (00:36→04:30)
[2019-11-21] MEDS ORDERED: ETOMIDATE INJ/PF 20 MG/10 ML SDV IV ONE (00:59)
[2019-11-21] MEDS ORDERED: PROPOFOL 1,000 MG/100 ML INFUS..BTL IV ONE ×2 (00:59→03:05)
[2019-11-21] MEDS: PROPOFOL 1,000 MG/100 ML INFUS..BTL IV PRN ×3 (01:21→18:07)
--- NOTE | 2019-11-21 01:49 | RADIOLOGY REPORT (SQ) ---
EXAM DESCRIPTION: RadLex: XR CHEST 1 VIEW CLINICAL HISTORY: 44 years Male; ETT PLACEMENT; FINDINGS: Since 11/19/2019, endotracheal tube has been placed, 3.2 cm above ernie. There is improved aeration of the left lung, but significantly worse dense infiltrates in the right upper lobe, with partial consolidation of the right upper lobe. No pneumothorax or pleural effusion. Mediastinum is grossly unchanged. IMPRESSION: 1. Intubated 2. Dense right upper lobe infiltrate, likely pneumonia 3. Improved aeration of left lung
[2019-11-21] MEDS: QUETIAPINE FUMARATE 100 MG TABLET PO SCH (01:53)
--- NOTE | 2019-11-21 02:20 | RADIOLOGY REPORT (SQ) ---
EXAM DESCRIPTION: XR CHEST 1 VIEW COMPLETED DATE/TME: 11/21/2019 00:00 CLINICAL HISTORY: 44 years Male, OGT placement verification COMPARISON: Same day. TECHNIQUE/LIMITATION: Targeted exam for enteric tube assessment. FINDINGS: Adequate appearing enteric tube with tip at the upper abdominal midline after coursing through the left upper abdominal quadrant. Moderate mixed interstitial and airspace opacities of the lungs partially imaged without significant change.Adequate appearing endotracheal tube. Gaseous prominence of bowel loops partially imaged. IMPRESSION: Enteric tube.
[2019-11-21] MEDS: IPRATROPIUM/ALBUTEROL 0.5-2.5 MG/3 ML AMPUL NEB SCH ×4 (02:32→20:31)
[2019-11-21] MEDS: FENTANYL CITRATE/PF 600 MCG/60 ML BAG IV PRN ×2 (03:14→14:54)
[2019-11-21] MEDS ORDERED: RINGERS SOLUTION,LACTATED 1,000 ML IV PRN (03:36)
[2019-11-21] MEDS ORDERED: RINGERS SOLUTION,LACTATED 1,000 ML IV ONE (04:00)
[2019-11-21 04:16] LABS: HEMOGLOBIN 9.9 g/dL (13.5-17.0); MEAN CORPUSCULAR HEMOGLOBIN 30.4 pg (27.0-33.4); MEAN CORPUSCULAR HGB CONC 35.5 g/dL (32.0-36.0); MEAN CORPUSCULAR VOLUME 86 fl (80-97); PLATELET COUNT 102 10^3/uL (150-450); RED BLOOD COUNT 3.27 10^6/uL (4.35-5.55); RED CELL DISTRIBUTION WIDTH 14.2 % (11.5-14.0); WHITE BLOOD COUNT 4.6 10^3/uL (4.0-10.5)
[2019-11-21 04:17] LABS: ARTERIAL BLOOD BASE EXCESS 0.9 mmol/L; ARTERIAL BLOOD H2CO3 0.93 mmol/L (1.05-1.35); ARTERIAL BLOOD HCO3 23.5 mmol/L (20-24); ARTERIAL BLOOD O2 SATURATION 99.7 % (94-98); ARTERIAL BLOOD PCO2 30.9 mmHg (35-45); ARTERIAL BLOOD PO2 286.6 mmHg (80-100); ARTERIAL BLOOD TOTAL CO2 24.5 mmol/L (23-27)
[2019-11-21 04:18] LABS: ARTERIAL BLOOD FIO2 95%
[2019-11-21 04:27] LABS: ANION GAP 8 (5-19); BLOOD UREA NITROGEN 10 mg/dL (7-20); CALCIUM 7.2 mg/dL (8.4-10.2); CARBON DIOXIDE 25 mmol/L (22-30); CHLORIDE 101 mmol/L (98-107); GLUCOSE 144 mg/dL (75-110); POTASSIUM 3.8 mmol/L (3.6-5.0)
[2019-11-21] MEDS ORDERED: SUCCINYLCHOLINE CHLORIDE INJ 200 MG/10 ML VIAL IV ONE (04:30)
[2019-11-21] MEDS: HEPARIN SOD (PORCINE) 5,000 UNIT/ML 1 ML VIAL SUBCUT SCH ×3 (05:02→21:38)
[2019-11-21] MEDS: LEVOFLOXACIN 500 MG/D5W RTU 500 MG/100 ML RTUPB IV SCH (05:09)
--- NOTE | 2019-11-21 05:57 | CRITICAL CARE ADMISSION REPORT ---
<KALEN EVANS - Last Filed: 11/21/19 05:54> HPI Date:: 11/21/19 Time:: 00:50 Reason for ICU Reason:: Respiratory failure HPI: 44-year-old gentleman with a history of cerebral palsy, severe autism with recurrent abdominal issues related to fecal impaction. Patient resides at a alf facility. He presented with a 5-day history of non-productive cough and fever. Upon admission to the hospital he was found to be tachypneic, tachycardic with bilateral lung infiltrates on chest x-ray. His ABG upon admission showed hypoxemia and he was placed on a 100% nonrebreather and later on high flow nasal cannula. Early this morning, patient developed worsening respiratory distress and an RESP THER was called. Upon my arrival to the patient's bedside, he was obtunded and his breathing was severely labored. With bag mask ventilation, we were able to achieve an SPO2 of 95%. Patient however remained minimally responsive and was emergently intubated. He was transferred to the intensive care unit, required sedation with fentanyl and propofol and was placed on mechanical ventilation with high levels of PEEP and FiO2 requirement. Katie ent was changed to pressure control ventilation with a prolonged inspiratory time. Throughout the course of the morning, he was able to be weaned to 21%. History obtained from:: Medical documentation. - Diagnosis/Plan (2) Autism Is this a current diagnosis for this admission?: Yes Plan: Patient has significant anxiety in high stress environments. We will restart his home dose of Seroquel. (3) Fecal impaction Is this a current diagnosis for this admission?: Yes Plan: We will order an enema to be given while patient is sedated. By report, he got extremely anxious with a NH administered medication yesterday. (4) Pneumonia Qualifiers: Pneumonia type: due to unspecified organism Laterality: bilateral Lung location: unspecified part of lung Qualified Code(s): J18.9 - Pneumonia, unspecified organism Is this a current diagnosis for this admission?: Yes Plan: Continue on pressure control ventilation for now with prolonged inspiratory time. Antibiotics switched to ceftriaxone and levofloxacin to cover hospital-acquired pneumonia given his history in a alf facility setting. We will obtain sputum culture Patient will require chest PT for pulmonary toileting. Continue to maintain minimal FiO2 and airway pressures. We will look to extubate patient within the next few days as pneumonia improves. Repeat CXR in AM. Past Medical History Cardiac Medical History: Reports: Hyperlipidema, Hypertension Denies: Coronary Artery Disease, Myocardial Infarction Pulmonary Medical History: Denies: Asthma, Bronchitis, Chronic Obstructive Pulmonary Disease (COPD), Pneumonia Neurological Medical History: Denies: Seizures - AUTISM, CEREBRAL PALSY GI Medical History: Reports: Gastroesophageal Reflux Disease Musculoskeltal Medical History: Denies: Arthritis Psychiatric Medical History: Reports: Other - Autism, Cerebral Palsy Hematology: Denies: Anemia Social/Family History - Social History Social History Note: Patient with severe autism and cerebral palsy. He is dependent on care from his facility as well as support from his mother and sister. Lives with: Other - Halfway Smoking Status: Never Smoker Frequency of Alcohol Use: None Hx Recreational Drug Use: No Drugs: None - Medication/Allergies Home Medications: Diazepam 5 mg PO DAILYP PRN 08/22/16 Escitalopram Oxalate 20 mg PO QAM 08/22/16 Fexofenadine HCl [Silvina] 180 mg PO QAM 08/22/16 Lactulose [Constulose] 20 gm PO BID 08/22/16 Linaclotide [Linzess] 290 mcg PO QAM 08/22/16 Omeprazole 20 mg PO QAM 08/22/16 Oxcarbazepine [Trileptal] 300 mg PO TID 08/22/16 Quetiapine Fumarate 300 mg PO TID 08/22/16 Zolpidem Tartrate 5 mg PO QHS PRN 08/22/16 Acetaminophen [Acetaminophen Extra Strength] 1,000 mg PO Q6HP PRN 11/20/19 Diphenhydramine HCl [Benadryl 25 mg Capsule] 25 mg PO BID PRN 11/20/19 Loperamide HCl [Loperamide] 2 mg PO TIDP PRN 11/20/19 Mag Hydrox/Al Hydrox/Simeth [Maalox Plus Susp 30 Udcup] 30 ml PO Q6HP PRN 11/20/19 Magnesium Hydroxide [Milk of Magnesia 30 ml Udcup] 30 ml PO HSP PRN 11/20/19 Neomycin/Bacitracin/Polymyxinb [Triple Antibiotic Ointment Pkt] 1 oz TOP DAILYP PRN 11/20/19 Allergies/Adverse Reactions: lactose Allergy (Verified 11/19/19 17:43) Penicillins Allergy (Verified 11/19/19 17:43) Review of Systems ROS unobtainable: Due to endotracheal tube Physical Exam Vital Signs: Temp Pulse Resp BP Pulse Ox 102.2 F H 92 12 146/39 H 96 11/21/19 02:12 11/21/19 02:32 11/21/19 02:32 11/21/19 00:30 11/21/19 04:35 Intake & Output 11/19/19 11/20/19 11/21/19 06:59 06:59 06:59 Intake Total 3310 2123 Output Total 1220 1875 Balance 2090 248 Weight 85 kg 82.7 kg Weight/Height Weight 82.7 kg Height 5 ft 7 in Exam: Severe respiratory distress Mouth exam: PRESENT: dry mucosa, neck supple Neck exam: PRESENT: full ROM. ABSENT: JVD, tenderness Respiratory exam: PRESENT: accessory muscle use, rales, retraction, rhonchi, tachypnea Cardiovascular exam: PRESENT: +S2, tachycardia Pulses: PRESENT: normal carotid pulses, normal radial pulses, +2 pedal pulses bilateral Vascular exam: PRESENT: normal capillary refill GI/Abdominal exam: PRESENT: distended, hyperactive bowel sounds, tenderness Extremities exam: ABSENT: joint swelling, pedal edema Musculoskeletal exam: PRESENT: normal inspection Psychiatric exam: PRESENT: agitated Laboratory/Radiographs Laboratory Results: 11/21/19 03:51 11/21/19 03:51 11/20/19 11/20/19 11/20/19 05:36 05:36 05:50 WBC 3.2 L RBC 3.59 L Hgb 11.0 L Hct 31.1 L MCV 87 MCH 30.6 MCHC 35.4 RDW 13.9 Plt Count 93 L Seg Neutrophils % 59.7 Carbonic Acid 1.26 HCO3/H2CO3 Ratio 19:1 ABG pH 7.39 ABG pCO2 41.7 ABG pO2 72.6 L ABG HCO3 24.8 H ABG O2 Saturation 94.5 ABG Base Excess -0.2 FiO2 100% Sodium 137.1 Potassium 4.0 Chloride 102 Carbon Dioxide 26 Anion Gap 9 BUN 12 Creatinine 0.77 Est GFR ( Amer) > 60 Glucose 105 Calcium 7.2 L Total Bilirubin 0.2 AST 69 H Alkaline Phosphatase 54 Total Protein 5.8 L Albumin 3.1 L 11/20/19 11/21/19 11/21/19 15:33 03:50 03:51 WBC 4.6 RBC 3.27 L Hgb 9.9 L Hct 28.0 L MCV 86 MCH 30.4 MCHC 35.5 RDW 14.2 H Plt Count 102 L Seg Neutrophils % Carbonic Acid 1.14 0.93 L HCO3/H2CO3 Ratio 22:1 25:1 ABG pH 7.45 7.50 H ABG pCO2 38.0 30.9 L ABG pO2 59.9 L 286.6 H ABG HCO3 25.7 H 23.5 ABG O2 Saturation 92.1 L 99.7 H ABG Base Excess 1.7 0.9 FiO2 HF 60 95% Sodium Potassium Chloride Carbon Dioxide Anion Gap BUN Creatinine Est GFR ( Amer) Glucose Calcium Total Bilirubin AST Alkaline Phosphatase Total Protein Albumin 11/21/19 03:51 WBC RBC Hgb Hct MCV MCH MCHC RDW Plt Count Seg Neutrophils % Carbonic Acid HCO3/H2CO3 Ratio ABG pH ABG pCO2 ABG pO2 ABG HCO3 ABG O2 Saturation ABG Base Excess FiO2 Sodium 134.2 L Potassium 3.8 Chloride 101 Carbon Dioxide 25 Anion Gap 8 BUN 10 Creatinine 0.83 Est GFR ( Amer) > 60 Glucose 144 H Calcium 7.2 L Total Bilirubin AST Alkaline Phosphatase Total Protein Albumin 11/19/19 20:35 Troponin I < 0.012 NT-Pro-B Natriuret Pep 109 Impressions: Abdomen X-Ray 11/19/19 22:02 IMPRESSION: 1. Moderate colonic fecal retention, but no small bowel distention. Chest X-Ray 11/21/19 00:00 IMPRESSION: Enteric tube. All labs, radiographs, diagnostic studies and EKGs were personally reviewed: Yes In addition, reports of radiographic and diagnostic studies were read: Yes Critical Time Critical Time (minutes): 90 -: The care of a critically ill patient is dynamic. This note represents a static moment in the admission process. Orders and treatments may be given simultaneously and urgently, and time is not premium representative of the treatment process. This patient requires Critical Care secondary to life threatening organ or limb dysfunction. Without Critical Care services, the patient is at risk for increased mortality and morbidity. <BRISEIDA KUMAR - Last Filed: 11/21/19 18:28> Physical Exam Vital Signs: Temp Pulse Resp BP Pulse Ox 98.2 F 76 11 L 101/71 99 11/21/19 16:00 11/21/19 16:00 11/21/19 16:00 11/21/19 16:00 11/21/19 16:45 Intake & Output 11/20/19 11/21/19 11/22/19 06:59 06:59 06:59 Intake Total 3310 3226 1351 Output Total 1220 1975 1025 Balance 2090 1251 326 Weight 85 kg 82.7 kg 82.7 kg Weight/Height Weight 82.7 kg Height 5 ft 7 in Laboratory/Radiographs Laboratory Results: 11/21/19 03:51 11/21/19 03:51 11/21/19 11/21/19 11/21/19 03:50 03:51 03:51 WBC 4.6 RBC 3.27 L Hgb 9.9 L Hct 28.0 L MCV 86 MCH 30.4 MCHC 35.5 RDW 14.2 H Plt Count 102 L Carbonic Acid 0.93 L HCO3/H2CO3 Ratio 25:1 ABG pH 7.50 H ABG pCO2 30.9 L ABG pO2 286.6 H ABG HCO3 23.5 ABG O2 Saturation 99.7 H ABG Base Excess 0.9 FiO2 95% Sodium 134.2 L Potassium 3.8 Chloride 101 Carbon Dioxide 25 Anion Gap 8 BUN 10 Creatinine 0.83 Est GFR ( Amer) > 60 Glucose 144 H Calcium 7.2 L 11/19/19 20:35 Troponin I < 0.012 NT-Pro-B Natriuret Pep 109 Impressions: Abdomen X-Ray 11/19/19 22:02 IMPRESSION: 1. Moderate colonic fecal retention, but no small bowel distention. Chest X-Ray 11/21/19 00:00 IMPRESSION: Enteric tube. Critical Time -: The care of a critically ill patient is dynamic. This note represents a static moment in the admission process. Orders and treatments may be given simultane ously and urgently, and time is not premium representative of the treatment process. This patient requires Critical Care secondary to life threatening organ or limb dysfunction. Without Critical Care services, the patient is at risk for increased mortality and morbidity. I did not personally care for this patient but as primary supervising physician, assert that proper care and documentation were provided
[2019-11-21] MEDS ORDERED: BISACODYL 10 MG SUPP.RECT PR ONE (06:00)
--- NOTE | 2019-11-21 06:03 | Operative Report ---
Bedside Procedure - History of Present Illness History of Present Illness: 44-year-old gentleman with a history of cerebral palsy, severe autism with recurrent abdominal issues related to fecal impaction. Patient resides at a alf facility. He presented with a 5-day history of non-productive cough and fever. Upon admission to the hospital he was found to be tachypneic, tachycardic with bilateral lung infiltrates on chest x-ray. His ABG upon admission showed hypoxemia and he was placed on a 100% nonrebreather and later on high flow nasal cannula. Early this morning, patient developed worsening respiratory distress and an SCHOOL BUSINESS MANAGER was called. Upon my arrival to the patient's bedside, he was obtunded and his breathing was severely labored. With bag mask ventilation, we were able to achieve an SPO2 of 95%. Patient however remained minimally responsive and was emergently intubated. He was transferred to the intensive care unit, required sedation with fentanyl and propofol and was placed on mechanical ventilation with high levels of PEEP and FiO2 requirement. Patient was changed to pressure control ventilation with a prolonged inspiratory time. Throughout the course of the morning, he was able to be weaned to 21%. Indication: Respiratory failure Procedure scroll shear operator: ANTONINO Huerta Consent: Consent was obtained from patients sister to the procedure. Indications, risks and benefits were explained at length. Procedure summary: A timeout was performed. My hands were washed immediately prior to the procedure. I wore a surgical cap, mask with protective eyewear, gown and gloves throughout the procedure. The patient was placed on a monitoring engineer including continuous pulse oximetry. Rapid sequence intubation was conducted. The patient received 50 mg of Propofol for induction and 60 mg of succinylcholine for adequate paralysis. Cricoid pressure was maintained from time induction agent was given the time of cuff balloon inflation. Using a MAC 3 laryngoscope and a size 7.5 endotracheal tube with stylette, the patient was intubated on the first attempt. The stylette was removed and the cuff balloon was inflated. Appropriate endotracheal tube position was confirmed by direct visualization of vocal cord passage, CO2 colorimetric indicator and symmetric breath sounds. Post intubation chest x-ray confirms ET tube at 3 cm above the ernie. Indication for Procedure: Respiratory failure Date: 11/21/19 Provider: KALEN EVANS
[2019-11-21] MEDS ORDERED: ESCITALOPRAM OXALATE 10 MG TABLET PO SCH (08:00)
[2019-11-21] MEDS ORDERED: (PENDING PHARMACY ID) (Escitalopram Oxalate [Escitalopram Oxalate] 20 MG) PO SCH ×2 (08:00)
[2019-11-21] MEDS ORDERED: LORATADINE 10 MG TABLET PO SCH (10:00)
[2019-11-21] MEDS: NORMAL SALINE 1000 ML 1,000 ML IV PRN (13:10)
[2019-11-21] MEDS: CEFTRIAXONE 2 GM/D5W RTU 2 GM/50 ML RTUPB IV SCH (21:38)
[2019-11-22] MEDS: PROPOFOL 1,000 MG/100 ML INFUS..BTL IV PRN ×4 (00:11→21:43)
[2019-11-22] MEDS: IPRATROPIUM/ALBUTEROL 0.5-2.5 MG/3 ML AMPUL NEB SCH ×4 (01:39→19:36)
[2019-11-22] MEDS: FENTANYL CITRATE/PF 600 MCG/60 ML BAG IV PRN ×6 (01:53→23:12)
[2019-11-22] MEDS: NORMAL SALINE 1000 ML 1,000 ML IV PRN ×3 (01:54→21:42)
[2019-11-22] MEDS ORDERED: LORAZEPAM INJ 2 MG/1 ML VIAL IV ONE (02:47)
[2019-11-22] MEDS: ACETAMINOPHEN 325 MG TABLET PO PRN ×2 (02:55→06:34)
[2019-11-22 03:58] LABS: HEMATOCRIT 27.8 % (37.9-51.0); HEMOGLOBIN 9.6 g/dL (13.5-17.0); MEAN CORPUSCULAR HEMOGLOBIN 29.9 pg (27.0-33.4); MEAN CORPUSCULAR HGB CONC 34.7 g/dL (32.0-36.0); MEAN CORPUSCULAR VOLUME 86 fl (80-97); PLATELET COUNT 107 10^3/uL (150-450); RED BLOOD COUNT 3.22 10^6/uL (4.35-5.55); WHITE BLOOD COUNT 5.6 10^3/uL (4.0-10.5)
[2019-11-22 04:20] LABS: ANION GAP 7 (5-19); BLOOD UREA NITROGEN 12 mg/dL (7-20); CALCIUM 7.4 mg/dL (8.4-10.2); CARBON DIOXIDE 27 mmol/L (22-30); CHLORIDE 102 mmol/L (98-107); GLUCOSE 116 mg/dL (75-110); POTASSIUM 3.5 mmol/L (3.6-5.0); TRIGLYCERIDES 300 mg/dL (<150)
[2019-11-22] MEDS ORDERED: RINGERS SOLUTION,LACTATED 1,000 ML IV ONE (05:28)
[2019-11-22] MEDS: LEVOFLOXACIN 500 MG/D5W RTU 500 MG/100 ML RTUPB IV SCH (05:33)
[2019-11-22] MEDS: HEPARIN SOD (PORCINE) 5,000 UNIT/ML 1 ML VIAL SUBCUT SCH ×3 (05:42→21:42)
[2019-11-22] MEDS: LORAZEPAM INJ 2 MG/1 ML VIAL IV PRN (07:21)
[2019-11-22] MEDS ORDERED: LORAZEPAM INJ 2 MG/1 ML VIAL ONE (09:04)
[2019-11-22] MEDS ORDERED: MIDAZOLAM 2 MG/2 ML INJ ONE (10:51)
[2019-11-22] MEDS ORDERED: ALBUTEROL SULFATE 0.083% NEB 2.5 MG/3 ML AMPUL NEB ONE ×2 (11:15→12:00)
[2019-11-22] MEDS ORDERED: OXCARBAZEPINE 300 MG/5 ML SUSP 250ML/BOTTLE PO SCH (11:30)
[2019-11-22] MEDS: MIDAZOLAM HCL 50 MG/100 ML RTUINJ IV PRN ×2 (11:35→23:11)
--- NOTE | 2019-11-22 12:35 | PDOC CRITICAL CARE PROG REPORT ---
General Date:: 11/22/19 ICU Day:: 2 Ventilator Day:: 2 Hospital Day:: 4 Resuscitation Status: Full Code Events in the past 12 to 24 Hours:: The patient transferred to the ICU from the floor with acute hypoxemic respiratory failure, requiring endotracheal intubation. Thus far, the patient has been managed on pressure control mode. However, I was called to see the patient by the bedside nurse due to recurring ventilator alarms, acute hypoxia and concern for possible seizures. Review of his home medications includes Trileptal 300 mg p.o. 3 times daily, which has not been administered in the past 24 hours. Discussion with a caregiver from the halfway suggests that the Trileptal may not be for antiepileptic therapy but for mood modulation. Is a 44-year-old male halfway resident with a known history of cerebral palsy, severe autism and recurrent abdominal problems related to fecal impaction, who presented to [facility] on 11/19/2019 with fever, cough and shortness of breath. Review of systems relevant to events:: Respiratory, GI, neuropsychiatric Reason for ICU Addmission:: Respiratory failure - Medications: Medications reviewed and adjusted accordingly: Yes Sedation:: Propofol, fentanyl Physical Exam Vital Signs: Temp Pulse Resp BP Pulse Ox 103.6 F H 102 H 17 95/64 L 95 11/22/19 08:00 11/22/19 08:15 11/22/19 08:15 11/22/19 08:00 11/22/19 08:15 Intake & Output 11/21/19 11/22/19 11/23/19 06:59 06:59 06:59 Intake Total 3226 2620 100 Output Total 1975 1370 42 Balance 1251 1250 58 Weight 82.7 kg 83.5 kg Weight/Height Weight 83.5 kg Height 1.7 m General appearance: PRESENT: other - Intubated. Sedated with propofol/fentanyl. Visibly shaking (tremors versus seizures). His jaw is clenched, relieved with Ativan. Laboratory/Radiographs Laboratory Results: 11/22/19 03:39 11/22/19 03:39 11/22/19 11/22/19 03:39 03:39 WBC 5.6 RBC 3.22 L Hgb 9.6 L Hct 27.8 L MCV 86 MCH 29.9 MCHC 34.7 RDW 14.0 Plt Count 107 L Sodium 135.7 L Potassium 3.5 L Chloride 102 Carbon Dioxide 27 Anion Gap 7 BUN 12 Creatinine 0.70 Est GFR ( Amer) > 60 Glucose 116 H Calcium 7.4 L Triglycerides 300 H 11/19/19 20:35 Troponin I < 0.012 NT-Pro-B Natriuret Pep 109 Impressions: Abdomen X-Ray 11/19/19 22:02 IMPRESSION: 1. Moderate colonic fecal retention, but no small bowel distention. Chest X-Ray 11/21/19 00:00 IMPRESSION: Enteric tube. Assessment and Plan - Diagnosis (1) Acute respiratory failure with hypoxia Is this a current diagnosis for this admission?: Yes Plan: Change ventilator mode to PRVC f 12, VT 550, FiO2 80%, PEEP 10. Titrate vent settings based on ABG results. Stop propofol (ineffective sedation, high triglycerides). Start Versed infusion. Continue fentanyl. May have to administer single dose succinylcholine, to allow time to achieve adequate sedation, as the patient appears to be biting down on the tube. (2) Pneumonia Qualifiers: Pneumonia type: aspiration pneumonia Aspiration pneumonia type: unspecified Laterality: bilateral Lung location: unspecified part of lung Qualified Code(s): J69.0 - Pneumonitis due to inhalation of food and vomit Is this a current diagnosis for this admission?: Yes Plan: Continue Rocephin/Levaquin. Blood cultures show no growth to date. (3) Autism Is this a current diagnosis for this admission?: Yes (4) Cerebral palsy Is this a current diagnosis for this admission?: Yes Critical Time Critical Time (minutes): 60 Level of Care: ICU -: 1. The care of a critical patient is a dynamic process. This note is a communications representative synopsis but static in nature. The timeframe for treatments given in order is not necessarily the actual time these treatments may have been done. 2. This patient requires critical care secondary to ongoing requirements for therapy not offered or safe outside the critical care environment. Transfer to a lower level of care will result in altered life or limb morbidity and mortality. 3. Multidisciplinary rounds completed. 4. ABCDE bundle addressed.
[2019-11-22] MEDS: PANTOPRAZOLE SODIUM 40 MG VIAL IV SCH (13:19)
[2019-11-22] MEDS ORDERED: SUCCINYLCHOLINE CHLORIDE INJ 200 MG/10 ML VIAL IV ONE (13:30)
--- NOTE | 2019-11-22 13:37 | RADIOLOGY REPORT (SQ) ---
EXAM DESCRIPTION: CHEST SINGLE VIEW COMPLETED DATE/TIME: 11/22/2019 12:23 pm REASON FOR STUDY: INTUBATION COMPARISON: 11/21/2019 FINDINGS: One view chest AP portable semi-upright. Endotracheal tube down with tip to the level of the clavicles, appropriate. Low lung volumes with patchy diffuse infiltrate/edema. This looks progressive compared to yesterday in the left lung. Nasogastric tube down, tip not seen but this appears to be at least within the stomach. TECHNICAL DOCUMENTATION: JOB ID: [id number] Reading location - IP/workstation name: [email or web address]
[2019-11-22 14:05] LABS: ARTERIAL BLOOD BASE EXCESS -3.4 mmol/L; ARTERIAL BLOOD H2CO3 1.29 mmol/L (1.05-1.35); ARTERIAL BLOOD HCO3 22.3 mmol/L (20-24); ARTERIAL BLOOD O2 SATURATION 88.4 % (94-98); ARTERIAL BLOOD PCO2 42.8 mmHg (35-45); ARTERIAL BLOOD PH 7.33 (7.35-7.45); ARTERIAL BLOOD PO2 58.1 mmHg (80-100); ARTERIAL BLOOD TOTAL CO2 23.6 mmol/L (23-27)
[2019-11-22 14:06] LABS: ARTERIAL BLOOD FIO2 100%
[2019-11-22] MEDS: OXCARBAZEPINE 300 MG/5 ML SUSP 250ML/BOTTLE NG SCH (18:48)
[2019-11-22] MEDS: CEFTRIAXONE 2 GM/D5W RTU 2 GM/50 ML RTUPB IV SCH (21:41)
[2019-11-23] MEDS: OXCARBAZEPINE 300 MG/5 ML SUSP 250ML/BOTTLE NG SCH ×3 (01:34→17:32)
[2019-11-23] MEDS: ACETAMINOPHEN 325 MG TABLET PO PRN ×5 (01:37→22:05)
[2019-11-23] MEDS: PROPOFOL 1,000 MG/100 ML INFUS..BTL IV PRN ×2 (01:49→05:43)
[2019-11-23] MEDS: IPRATROPIUM/ALBUTEROL 0.5-2.5 MG/3 ML AMPUL NEB SCH ×4 (02:18→19:29)
[2019-11-23] MEDS ORDERED: RINGERS SOLUTION,LACTATED 1,000 ML IV ONE ×2 (02:48→23:54)
[2019-11-23] MEDS ORDERED: BISACODYL 10 MG SUPP.RECT PR ONE (02:49)
[2019-11-23 04:22] LABS: ARTERIAL BLOOD BASE EXCESS -2.3 mmol/L; ARTERIAL BLOOD HCO3 22.7 mmol/L (20-24); ARTERIAL BLOOD O2 SATURATION 88.2 % (94-98); ARTERIAL BLOOD PH 7.37 (7.35-7.45); ARTERIAL BLOOD PO2 55.5 mmHg (80-100); ARTERIAL BLOOD TOTAL CO2 23.9 mmol/L (23-27)
[2019-11-23 04:23] LABS: ARTERIAL BLOOD FIO2 80%
[2019-11-23] MEDS: GUAIFENESIN SYRP 200 MG/10 ML UDC PO PRN ×2 (05:42→21:14)
[2019-11-23] MEDS: NORMAL SALINE 1000 ML 1,000 ML IV PRN ×2 (05:42→17:32)
[2019-11-23] MEDS: HEPARIN SOD (PORCINE) 5,000 UNIT/ML 1 ML VIAL SUBCUT SCH ×3 (05:43→21:14)
[2019-11-23] MEDS: LEVOFLOXACIN 500 MG/D5W RTU 500 MG/100 ML RTUPB IV SCH (05:43)
--- NOTE | 2019-11-23 08:11 | RADIOLOGY REPORT (SQ) ---
EXAM DESCRIPTION: CHEST SINGLE VIEW COMPLETED DATE/TIME: 11/23/2019 7:21 am REASON FOR STUDY: Respiratory Failure/Pneumonia COMPARISON: 11/22/2019 FINDINGS: Single-view chest AP portable semi upright. Appropriate lines and tubes including endotracheal. Better inflation but patchy extensive multifocal areas of airspace opacity remain, right greater than left. No pneumothorax. TECHNICAL DOCUMENTATION: JOB ID: [id number] Reading location - IP/workstation name: [email or web address]
[2019-11-23] MEDS ORDERED: DEXTROSE 40% GEL 15 GM TUBE X 2 PO PRN (08:30)
[2019-11-23] MEDS ORDERED: DEXTROSE 50%-WATER SYRINGE 12.5 GM/25 ML DOSE IV PRN (08:30)
[2019-11-23] MEDS ORDERED: GLUCAGON,HUMAN RECOMB 1 MG INJ IM PRN (08:30)
[2019-11-23] MEDS ORDERED: DEXTROSE 40% GEL 15 GM TUBE PO PRN (08:30)
[2019-11-23] MEDS ORDERED: VECURONIUM BROMIDE INJ 10 MG VIAL IV ONE (09:50)
[2019-11-23] MEDS: PANTOPRAZOLE SODIUM 40 MG VIAL IV SCH (09:58)
[2019-11-23] MEDS: FENTANYL CITRATE/PF 600 MCG/60 ML BAG IV PRN ×2 (11:51→23:18)
[2019-11-23] MEDS: DEXTROSE 50%-WATER SYRINGE 25 GM/50 ML DOSE IV PRN (13:04)
[2019-11-23 14:56] LABS: ARTERIAL BLOOD BASE EXCESS -0.4 mmol/L; ARTERIAL BLOOD FIO2 70%; ARTERIAL BLOOD H2CO3 1.26 mmol/L (1.05-1.35); ARTERIAL BLOOD HCO3 24.6 mmol/L (20-24); ARTERIAL BLOOD O2 SATURATION 85.4 % (94-98); ARTERIAL BLOOD PCO2 41.8 mmHg (35-45); ARTERIAL BLOOD PH 7.39 (7.35-7.45); ARTERIAL BLOOD PO2 50.6 mmHg (80-100); ARTERIAL BLOOD TOTAL CO2 25.9 mmol/L (23-27)
--- NOTE | 2019-11-23 15:48 | PDOC CRITICAL CARE PROG REPORT ---
General Date:: 11/23/19 Resuscitation Status: Full Code Events in the past 12 to 24 Hours:: 44-year-old white male with combination of MR, cerebral palsy and/or autism admitted with pneumonia that progressed to ARDS. After watching him eat and after discussion with the family, it would appear t hat this is a aspiration process. Today his oxygenation was poor on 100% and he appeared uncomfortable with tachypnea. The opportunity to adjust his pressure control ventilation good response to these adjustments. He clearly is more comfortable he is down to 70% and a follow-up blood gas is pending. His blood sugars have been on the low side but I suspect this will resolve itself as the enteral feeding is started today. Reason for ICU Addmission:: Respiratory failure Physical Exam Vital Signs: Temp Pulse Resp BP Pulse Ox 102.9 F H 122 H 27 H 94/54 L 93 11/23/19 15:30 11/23/19 14:30 11/23/19 14:42 11/23/19 14:43 11/23/19 14:43 Intake & Output 11/22/19 11/23/19 11/24/19 06:59 06:59 06:59 Intake Total 2620 5648 110 Output Total 1370 2347 555 Balance 1250 3301 -445 Weight 83.5 kg 86.9 kg Weight/Height Weight 86.9 kg Height 5 ft 7 in General appearance: PRESENT: no acute distress Eye exam: PRESENT: PERRLA Mouth exam: PRESENT: other - Orally intubated Neck exam: ABSENT: JVD, thyromegaly Respiratory exam: PRESENT: rhonchi Cardiovascular exam: PRESENT: RRR Pulses: PRESENT: normal radial pulses GI/Abdominal exam: PRESENT: soft. ABSENT: tenderness Extremities exam: PRESENT: +1 edema Neurological exam: PRESENT: other - Sedated on the ventilator Laboratory/Radiographs Laboratory Results: 11/22/19 03:39 11/22/19 03:39 11/23/19 11/23/19 04:11 14:44 Carbonic Acid 1.20 1.26 HCO3/H2CO3 Ratio 18:1 19:1 ABG pH 7.37 7.39 ABG pCO2 40.0 41.8 ABG pO2 55.5 L 50.6 L ABG HCO3 22.7 24.6 H ABG O2 Saturation 88.2 L 85.4 L ABG Base Excess -2.3 -0.4 FiO2 80% 70% 11/19/19 20:35 Troponin I < 0.012 NT-Pro-B Natriuret Pep 109 Impressions: Abdomen X-Ray 11/19/19 22:02 IMPRESSION: 1. Moderate colonic fecal retention, but no small bowel distention. Assessment and Plan - Diagnosis (1) Acute respiratory failure with hypoxia Is this a current diagnosis for this admission?: Yes (2) Pneumonia Qualifiers: Pneumonia type: aspiration pneumonia Aspiration pneumonia type: unspecified Laterality: bilateral Lung location: unspecified part of lung Qualified Code(s): J69.0 - Pneumonitis due to inhalation of food and vomit Is this a current diagnosis for this admission?: Yes Plan Summary: Presumed aspiration pneumonia which has progressed to ARDS Underlying developmental disabilities which will make treating the cause of the aspiration somewhat difficult. For now he can be fed enterally with a tube and avoid that issue. The response to adjustment of the ventilator as discussed above. IV access is poor and he will likely need a central line. I discussed his care with his mother and his aunt and his sister all of whom are in agreement with this plan. Critical Time Critical Time (minutes): 50 Level of Care: ICU -: 1. The care of a critical patient is a dynamic process. This note is a factory representative synopsis but static in nature. The timeframe for treatments gi augusto in order is not necessarily the actual time these treatments may have been done. 2. This patient requires critical care secondary to ongoing requirements for therapy not offered or safe outside the critical care environment. Transfer to a lower level of care will result in altered life or limb morbidity and mortality. 3. Multidisciplinary rounds completed. 4. ABCDE bundle addressed.
[2019-11-23] MEDS ORDERED: LACTULOSE SYRUP 20 GM/30 ML UDCUP PO ONE (19:52)
[2019-11-23] MEDS ORDERED: NA PHOS,M-B/NA PHOS,DI-BA (ADULT) 133 ML ENEMA PR ONE (19:53)
[2019-11-23] MEDS: CEFTRIAXONE 2 GM/D5W RTU 2 GM/50 ML RTUPB IV SCH (21:14)
[2019-11-23] MEDS: MIDAZOLAM HCL 50 MG/100 ML RTUINJ IV PRN (22:05)
[2019-11-24] MEDS: IPRATROPIUM/ALBUTEROL 0.5-2.5 MG/3 ML AMPUL NEB SCH ×4 (01:46→20:55)
[2019-11-24] MEDS: PROPOFOL 1,000 MG/100 ML INFUS..BTL IV PRN ×2 (02:06→17:54)
[2019-11-24] MEDS: OXCARBAZEPINE 300 MG/5 ML SUSP 250ML/BOTTLE NG SCH ×3 (02:07→17:01)
--- NOTE | 2019-11-24 02:31 | RADIOLOGY REPORT (SQ) ---
Chest one view on 11/24/2019 1:58 AM CLINICAL INDICATION: Acute hypoxemia COMPARISON: 11/23/2019 FINDINGS: ET tube tip is in the mid thoracic trachea. NG tube extends into the distal stomach. Artifact from overlying unknown device somewhat limits the exam. There are continued right greater than left opacities consistent with pneumonia and/or asymmetric edema. Heart is within normal limits for size. IMPRESSION: Likely no significant change in the appearance of the chest.
[2019-11-24] MEDS ORDERED: NA PHOS,M-B/NA PHOS,DI-BA (ADULT) 133 ML ENEMA PR ONE (03:34)
[2019-11-24 03:45] LABS: ALBUMIN 2.3 g/dL (3.5-5.0); ALKALINE PHOSPHATASE 56 U/L (38-126); ANION GAP 7 (5-19); ASPARTATE AMINO TRANSFERASE 155 U/L (17-59); BILIRUBIN,DIRECT 0.3 mg/dL (0.0-0.4); BILIRUBIN,TOTAL 0.6 mg/dL (0.2-1.3); BLOOD UREA NITROGEN 9 mg/dL (7-20); CARBON DIOXIDE 26 mmol/L (22-30); CHLORIDE 105 mmol/L (98-107); GLUCOSE 73 mg/dL (75-110); POTASSIUM 3.3 mmol/L (3.6-5.0); TOTAL PROTEIN 4.5 g/dL (6.3-8.2)
[2019-11-24 03:54] LABS: CALCIUM 6.8 mg/dL (8.4-10.2)
[2019-11-24 03:57] LABS: ARTERIAL BLOOD BASE EXCESS -0.6 mmol/L; ARTERIAL BLOOD H2CO3 1.28 mmol/L (1.05-1.35); ARTERIAL BLOOD HCO3 24.5 mmol/L (20-24); ARTERIAL BLOOD O2 SATURATION 83.4 % (94-98); ARTERIAL BLOOD PCO2 42.6 mmHg (35-45); ARTERIAL BLOOD PH 7.38 (7.35-7.45); ARTERIAL BLOOD PO2 48.6 mmHg (80-100); ARTERIAL BLOOD TOTAL CO2 25.8 mmol/L (23-27)
[2019-11-24 04:01] LABS: ARTERIAL BLOOD FIO2 100%
[2019-11-24] MEDS: NORMAL SALINE 1000 ML 1,000 ML IV PRN (04:18)
[2019-11-24] MEDS: LEVOFLOXACIN 500 MG/D5W RTU 500 MG/100 ML RTUPB IV SCH (05:13)
[2019-11-24] MEDS: HEPARIN SOD (PORCINE) 5,000 UNIT/ML 1 ML VIAL SUBCUT SCH ×3 (05:14→21:47)
[2019-11-24] MEDS: POTASSI CL 20 MEQ/50 ML RIDER 20 MEQ/50 ML RTUPB IV SCH ×2 (05:14→10:27)
[2019-11-24 08:06] LABS: ABSOLUTE BASOPHILS # (AUTO) 0.1 10^3/uL (0.0-0.2); ABSOLUTE LYMPHOCYTES (AUTO) 1.4 10^3/uL (0.5-4.7); ABSOLUTE MONOCYTES (AUTO) 0.2 10^3/uL (0.1-1.4); ABSOLUTE NEUT (AUTO) 5.2 10^3/uL (1.7-8.2); BASOPHILS % (AUTO) 0.9 % (0-2); HEMATOCRIT 29.5 % (37.9-51.0); HEMOGLOBIN 10.3 g/dL (13.5-17.0); LYMPHOCYTES % (AUTO) 20.7 % (13-45); MEAN CORPUSCULAR HGB CONC 34.7 g/dL (32.0-36.0); MEAN CORPUSCULAR VOLUME 86 fl (80-97); MONOCYTES % (AUTO) 3.4 % (3-13); PLATELET COUNT 175 10^3/uL (150-450); RED BLOOD COUNT 3.42 10^6/uL (4.35-5.55); RED CELL DISTRIBUTION WIDTH 14.4 % (11.5-14.0); TOTAL CELLS COUNTED % (AUTO) 100 %; WHITE BLOOD COUNT 6.9 10^3/uL (4.0-10.5)
--- NOTE | 2019-11-24 08:27 | Operative Report ---
Bedside Procedure - History of Present Illness Indication for Procedure: poor access Date: 11/21/19 Provider: KIM LOZANO - Central Line Right Subclavian Time completed: 08:15 Consent obtained: Yes Central line pre-insertion: Sterile PPE donned, Chloraprep applied, Sterile drapes applied Central line lumen type: Triple Anesthetic type: 1% Lidocaine mL's of anesthesia: 5 Ultrasound guided: No Line secured with sutures: Yes Central line post-insertion: Blood return from lumens, Biopatch applied, Sterile dressing applied, Position confirmed w/ CXR Complications: No
--- NOTE | 2019-11-24 08:44 | RADIOLOGY REPORT (SQ) ---
EXAM DESCRIPTION: CHEST SINGLE VIEW COMPLETED DATE/TIME: 11/24/2019 8:32 am REASON FOR STUDY: Central Line Placement Right Sub Clavian COMPARISON: 11/24/2019. EXAM PARAMETERS: NUMBER OF VIEWS: One view. TECHNIQUE: Single frontal radiographic view of the chest acquired. RADIATION DOSE: NA LIMITATIONS: None. FINDINGS: LUNGS AND PLEURA: Diffuse airspace disease, right greater than left. No pneumothorax. MEDIASTINUM AND HILAR STRUCTURES: No masses. Contour normal. HEART AND VASCULAR STRUCTURES: Heart normal in size. Normal vasculature. BONES: No acute findings. HARDWARE: Central line on the right. Tip at the level of the superior vena cava. Stable endotrachea l tube and nasogastric tube. OTHER: No other significant finding. IMPRESSION: CENTRAL LINE PLACEMENT IN SATISFACTORY POSITION WITH NO PNEUMOTHORAX. OTHERWISE NO RENTERIA GE. DIFFUSE AIRSPACE DISEASE. TECHNICAL DOCUMENTATION: JOB ID: [id number] 2010 [employer]- All Rights Reserved Reading location - IP/workstation name: [email or web address]
[2019-11-24 08:45] LABS: INTERNATIONAL RATION (INR) 1.24; PROTHROMBIN TIME 15.7 SEC (11.4-15.4)
[2019-11-24 08:46] LABS: PARTIAL THROMBOPLASTIN TIME 55.3 SEC (23.5-35.8)
[2019-11-24] MEDS ORDERED: POTASSI CL 20 MEQ/50 ML RIDER 20 MEQ/50 ML RTUPB IV ONE ×2 (09:00→13:11)
[2019-11-24 10:01] LABS: C DIFFICILE GDH NEGATIVE (NEGATIVE)
[2019-11-24] MEDS: PANTOPRAZOLE SODIUM 40 MG VIAL IV SCH (10:27)
--- NOTE | 2019-11-24 10:29 | RADIOLOGY REPORT (SQ) ---
EXAM DESCRIPTION: CT ABD/PELVIS NO ORAL OR IV COMPLETED DATE/TIME: 11/24/2019 9:58 am REASON FOR STUDY: abd distension and sepsis COMPARISON: 01/18/2019. TECHNIQUE: CT scan of the abdomen and pelvis performed without intravenous or oral contrast. Images reviewed with lung, soft tissue, and bone windows. Reconstructed coronal and sagittal MPR images revi ewed. All images stored on PACS. All CT scanners at this facility use dose modulation, iterative reconstruction, and/or weight based d osing when appropriate to reduce radiation dose to as low as reasonably achievable (ALARA). [facility]: Dose Right [facility]: CareDose [facility]: Dose Right [facility]: Teradose 4D [facility]: [employer] RADIATION DOSE: CT Rad equipment meets quality standard of care and radiation dose reduction techniq ues were employed. CTDIvol: 17.3 mGy. DLP: 954 mGy-cm.mGy. LIMITATIONS: None. FINDINGS: LOWER CHEST: Diffuse pulmonary infiltrates and bilateral pleural effusions. NON-CONTRASTED LIVER, SPLEEN, ADRENALS: Evaluation limited by lack of IV contrast. No identified sign ificant masses. PANCREAS: No masses. No peripancreatic inflammatory changes. GALLBLADDER: No identified stones by CT criteria. No inflammatory changes to suggest cholecystitis. RIGHT KIDNEY AND URETER: No suspicious masses. Assessment limited by lack of IV contrast. No signif icant calcifications. No hydronephrosis or hydroureter. LEFT KIDNEY AND URETER: No suspicious masses. Assessment limited by lack of IV contrast. No signifi cant calcifications. No hydronephrosis or hydroureter. AORTA AND RETROPERITONEUM: No aneurysm. No retroperitoneal masses or adenopathy. BOWEL AND PERITONEAL CAVITY: Nasogastric tube in the stomach. Stool throughout the colon. There is a linear radiopaque density in the rectum, measuring approximately 2.5 to 3 cm. No obvious masses or inflammatory changes. No free fluid. APPENDIX: Not visualized. PELVIS, BLADDER, AND ABDOMINAL WALL:No abnormal masses. No free fluid. Catheter in the bladder. BONES: No significant findings. OTHER: No other significant finding. IMPRESSION: 1. LINEAR RADIOPAQUE DENSITY IN THE RECTUM. UNCERTAIN ETIOLOGY. THIS MAY BE RELATED TO PRIOR SURGER Y OR COULD BE AN INGESTED OR INSERTED OBJECT. 2. BILATERAL PULMONARY INFILTRATES AND PLEURAL EFFUSIONS. 3. NO OTHER SIGNIFICANT OR ACUTE PROCESS IN THE ABDOMEN OR PELVIS. COMMENT: Quality ID # [id number]: Final reports with documentation of one or more dose reduction techniques (e.g., Automated exposure control, adjustment of the mA and/or kV according to patient size, use of iterative reconstruction technique) TECHNICAL DOCUMENTATION: JOB ID: [id number] 2010 [employer]- All Rights Reserved Reading location - IP/workstation name: [email or web address]
[2019-11-24] MEDS: FENTANYL CITRATE/PF 600 MCG/60 ML BAG IV PRN ×2 (11:18→21:48)
--- NOTE | 2019-11-24 11:38 | PDOC CRITICAL CARE PROG REPORT ---
General Date:: 10/24/19 ICU Day:: 3 Ventilator Day:: 3 Hospital Day:: 4 Resuscitation Status: Full Code Events in the past 12 to 24 Hours:: 44-year-old white male with severe developmental delay who presents with what wa s felt to be an aspiration pneumonia. He has progressed to ARDS with respiratory failure and is difficult to oxygenate even with pressure control ventilation. Oxygenation had improved yesterday after first setting the pressure control at 1-1 but it was changed last night. I have reset the pressure control at 1-1 and will make sure this does not happen again. Last night his abdomen became distended after starting enteral feeds. He now is passing loose stools but obviously has a lot of impacted stool throughout his GI tract by CT scanning. Surgery has seen him and is helping manage this issue. Care discussed with the surgeon. Finally, I have spoken with his mother and aunt again today, they understand how ill he has become. Reason for ICU Addmission:: Respiratory failure Physical Exam Vital Signs: Temp Pulse Resp BP Pulse Ox 99.7 F 112 H 22 H 101/70 90 L 11/24/19 08:00 11/24/19 08:00 11/24/19 10:42 11/24/19 10:43 11/24/19 10:43 Intake & Output 11/23/19 11/24/19 11/25/19 06:59 06:59 06:59 Intake Total 5648 3208 50 Output Total 2347 1730 350 Balance 3301 1478 -300 Weight 86.9 kg 96.3 kg Weight/Height Weight 96.3 kg Height 5 ft 7 in General appearance: PRESENT: no acute distress - Sedated on ventilator Head exam: PRESENT: normocephalic Eye exam: PRESENT: PERRLA Mouth exam: PRESENT: neck supple Neck exam: ABSENT: JVD, tracheal deviation Respiratory exam: PRESENT: rales Pulses: PRESENT: normal radial pulses GI/Abdominal exam: PRESENT: distended, firm, hypoactive bowel sounds. ABSENT: tenderness Rectal exam: PRESENT: normal inspection - Both the surgeon and the nursing staff have performed a rectal today without any specific findings Extremities exam: ABSENT: pedal edema Tubes/Lines: PRESENT: Endotracheal Tube, Central Line, Nasogastic Tube Laboratory/Radiographs Laboratory Results: 11/24/19 02:57 11/24/19 02:57 02/11/24/19 11/24/19 14:44 02:57 02:57 WBC RBC Hgb Hct MCV MCH MCHC RDW Plt Count Seg Neutrophils % Carbonic Acid 1.26 HCO3/H2CO3 Ratio 19:1 ABG pH 7.39 ABG pCO2 41.8 ABG pO2 50.6 L ABG HCO3 24.6 H ABG O2 Saturation 85.4 L ABG Base Excess -0.4 FiO2 70% Sodium 137.6 Potassium 3.3 L Chloride 105 Carbon Dioxide 26 Anion Gap 7 BUN 9 Creatinine 0.69 Est GFR ( Amer) > 60 Glucose 73 L Calcium 6.8 L* Magnesium 2.0 Total Bilirubin 0.6 AST 155 H Alkaline Phosphatase 56 Total Protein 4.5 L Albumin 2.3 L 11/24/19 11/24/19 02:57 03:38 WBC 6.9 RBC 3.42 L Hgb 10.3 L Hct 29.5 L MCV 86 MCH 30.0 MCHC 34.7 RDW 14.4 H Plt Count 175 Seg Neutrophils % 75.0 Carbonic Acid 1.28 HCO3/H2CO3 Ratio 19:1 ABG pH 7.38 ABG pCO2 42.6 ABG pO2 48.6 L ABG HCO3 24.5 H ABG O2 Saturation 83.4 L ABG Base Excess -0.6 FiO2 100% Sodium Potassium Chloride Carbon Dioxide Anion Gap BUN Creatinine Est GFR ( Amer) Glucose Calcium Magnesium Total Bilirubin AST Alkaline Phosphatase Total Protein Albumin 11/22/19 21:44 Tracheal Aspirate Gram Stain - Final 11/22/19 21:44 Tracheal Aspirate Sputum Culture - Final NO GROWTH 2 DAYS 11/19/19 20:35 Troponin I < 0.012 NT-Pro-B Natriuret Pep 109 Impressions: Abdomen X-Ray 11/19/19 22:02 IMPRESSION: 1. Moderate colonic fecal retention, but no small bowel distention. Chest X-Ray 11/24/19 08:11 IMPRESSION: CENTRAL LINE PLACEMENT IN SATISFACTORY POSITION WITH NO PNEUMOTHORAX. OTHERWISE NO CHANGE. DIFFUSE AIRSPACE DISEASE. Abdomen/Pelvis CT 11/24/19 08:23 IMPRESSION: 1. LINEAR RADIOPAQUE DENSITY IN THE RECTUM. UNCERTAIN ETIOLOGY. THIS MAY BE RELATED TO PRIOR SURGERY OR COULD BE AN INGESTED OR INSERTED OBJECT. 2. BILATERAL PULMONARY INFILTRATES AND PLEURAL EFFUSIONS. 3. NO OTHER SIGNIFICANT OR ACUTE PROCESS IN THE ABDOMEN OR PELVIS. Assessment and Plan - Diagnosis (1) Acute respiratory failure with hypoxia Is this a current diagnosis for this admission?: Yes (2) Pneumonia Qualifiers: Pneumonia type: aspiration pneumonia Aspiration pneumonia type: unspecified Laterality: bilateral Lung location: unspecified part of lung Qualified Code(s): J69.0 - Pneumonitis due to inhalation of food and vomit Is this a current diagnosis for this admission?: Yes Plan Summary: ARDS presumably on the basis of an aspiration pneumonia with poor oxygenation Chronic constipation with marked abdominal distention currently but negative CT Underlying developmental disability which may complicate care later Pressure control adjusted as discussed Flagyl added to the antibiotic regimen C. difficile screen sent, bowel management system and treatment per surgery Fluids will be adjusted per CVP, placed today independent of critical care time Critical Time Critical Time (minutes): 50 Level of Care: ICU -: 1. The care of a critical patient is a dynamic process. This note is a rep resentative synopsis but static in nature. The timeframe for treatments given in order is not necessarily the actual time these treatments may have been done. 2. This patient requires critical care secondary to ongoing requirements for therapy not offered or safe outside the critical care environment. Transfer to a lower level of care will result in altered life or limb morbidity and mortality. 3. Multidisciplinary rounds completed. 4. ABCDE bundle addressed.
[2019-11-24] MEDS: DEXTROSE 50%-WATER SYRINGE 25 GM/50 ML DOSE IV PRN (11:58)
[2019-11-24] MEDS ORDERED: FUROSEMIDE INJ/PF 40 MG/4 ML SDV IV ONE (13:00)
[2019-11-24] MEDS: METRONIDAZOLE 500 MG/NS RTU 500 MG/100 ML RTUPB IV SCH ×2 (13:15→21:47)
[2019-11-24] MEDS ORDERED: DEXTROSE 10%-WATER 1,000 ML IV PRN (13:36)
[2019-11-24] MEDS: ACETAMINOPHEN 325 MG TABLET PO PRN ×2 (13:56→21:46)
[2019-11-24] MEDS ORDERED: NOREPINEPHRINE BITARTRATE INJ/PF 4 MG/4 ML SDV IV ONE (14:54)
[2019-11-24] MEDS: MIDAZOLAM HCL 50 MG/100 ML RTUINJ IV PRN (17:01)
[2019-11-24] MEDS ORDERED: DEXTROSE 5%-WATER 250 ML with NOREPINEPHRINE BITARTRATE 4 MG IV PRN ×2 (17:51)
--- NOTE | 2019-11-24 19:29 | PDOC CONSULTATION ---
Consultation Consult Date: 11/24/19 Provider Consulted: SURGICAL SURGICALIST MD Consult reason:: ARDS, history of abdominal distention and constipation. History of Present Illness Admission Date/PCP: 11/19/19 22:14 KELSEY HAWLEY PA-C History of Present Illness: JUAN RAMON MACKAY is a 44 year old male with a long history of chronic constipation. The patient has ARDS, related to aspiration pneumonitis. Tube feedings were attempted yesterday, however they were stopped due to high residuals. Surgery is been asked to evaluate patient, to ensure that there is no intra-abdominal component to the patient's ARDS and intolerance of tube feedings. Patient is currently intubated and sedated. He does arouse to painful stimuli. Review of systems is unable to be obtained from the patient. The medical history has been gathered from the chart and the nursing staff. Patient has a long history of constipation. His aspiration pneumonitis appears to be related to his bowel prep. The patient was given multiple enemas as well as lactulose and other cathartics, with little initial results. Over the last 12 hours the patient has begun stooling excessively. He is afebrile. Past Medical History Cardiac Medical History: Reports: Hyperlipidema, Hypertension Denies: Coronary Artery Disease, Myocardial Infarction Pulmonary Medical History: Denies: Asthma, Bronchitis, Chronic Obstructive Pulmonary Disease (COPD), Pneumonia Neurological Medical History: Denies: Seizures - AUTISM, CEREBRAL PALSY GI Medical History: Reports: Gastroesophageal Reflux Disease Musculoskeltal Medical History: Denies: Arthritis Psychiatric Medical History: Reports: Other - Autism, Cerebral Palsy Hematology: Denies: Anemia Social History Lives with: Other - [facility] Smoking Status: Never Smoker Frequency of Alcohol Use: None Hx Recreational Drug Use: No Drugs: None - Advance Directive Resuscitation Status: Do Not Resuscitate Family History Family History: Hypertension Parental Family History Reviewed: Yes Children Family History Reviewed: Yes Sibling(s) Family History Reviewed.: Yes Medication/Allergy Home Medications: Diazepam 5 mg PO DAILYP PRN 08/22/16 Escitalopram Oxalate 20 mg PO QAM 08/22/16 Fexofenadine HCl [Silvina] 180 mg PO QAM 08/22/16 Lactulose [Constulose] 20 gm PO BID 08/22/16 Linaclotide [Linzess] 290 mcg PO QAM 08/22/16 Omeprazole 20 mg PO QAM 08/22/16 Oxcarbazepine [Trileptal] 300 mg PO TID 08/22/16 Quetiapine Fumarate 300 mg PO TID 08/22/16 Zolpidem Tartrate 5 mg PO QHS PRN 08/22/16 Acetaminophen [Acetaminophen Extra Strength] 1,000 mg PO Q6HP PRN 11/20/19 Diphenhydramine HCl [Benadryl 25 mg Capsule] 25 mg PO BID PRN 11/20/19 Loperamide HCl [Loperamide] 2 mg PO TIDP PRN 11/20/19 Mag Hydrox/Al Hydrox/Simeth [Maalox Plus Susp 30 Udcup] 30 ml PO Q6HP PRN 11/20/19 Magnesium Hydroxide [Milk of Magnesia 30 ml Udcup] 30 ml PO HSP PRN 11/20/19 Neomycin/Bacitracin/Polymyxinb [Triple Antibiotic Ointment Pkt] 1 oz TOP DAILYP PRN 11/20/19 Allergies/Adverse Reactions: lactose Allergy (Verified 11/19/19 17:43) Penicillins Allergy (Verified 11/19/19 17:43) Review of Systems ROS unobtainable: Due to endotracheal tube, Due to mental status Physical Exam Vital Signs: Temp Pulse Resp BP Pulse Ox 101.5 F H 119 H 25 H 120/76 98 11/24/19 18:00 11/24/19 18:00 11/24/19 18:29 11/24/19 18:29 11/24/19 18:29 Intake & Output 11/23/19 11/24/19 11/25/19 06:59 06:59 06:59 Intake Total 5648 3208 1253 Output Total 2347 1730 2610 Balance 3301 1478 -1357 Weight 86.9 kg 96.3 kg General appearance: PRESENT: no acute distress, other - Sedated. ABSENT: cooperative Head exam: PRESENT: atraumatic, normocephalic Eye exam: ABSENT: scleral icterus Mouth exam: PRESENT: moist, neck supple Neck exam: ABSENT: meningismus, tenderness, thyromegaly, tracheal deviation Respiratory exam: PRESENT: unlabored, other - Endotracheal tube in place. ABSENT: chest wall tenderness, tachypnea Cardiovascular exam: PRESENT: RRR. ABSENT: tachycardia Pulses: PRESENT: normal radial pulses Vascular exam: PRESENT: normal capillary refill. ABSENT: pallor GI/Abdominal exam: PRESENT: soft. ABSENT: distended, firm, guarding, rigid, tenderness Rectal exam: PRESENT: other - Large amount of liquid stool in the vault. No rectal foreign bodies appreciated on palpation. No blood noted on rectal examination. Rectal musculature appears normal and intact. Extremities exam: ABSENT: clubbing Musculoskeletal exam: ABSENT: deformity Neurological exam: ABSENT: alert, awake Psychiatric exam: ABSENT: agitated, anxious Skin exam: ABSENT: cyanosis, erythema, jaundice Results Laboratory Results: 11/24/19 02:57 11/24/19 02:57 11/24/19 11/24/19 11/24/19 02:57 02:57 02:57 WBC 6.9 RBC 3.42 L Hgb 10.3 L Hct 29.5 L MCV 86 MCH 30.0 MCHC 34.7 RDW 14.4 H Plt Count 175 Seg Neutrophils % 75.0 Carbonic Acid HCO3/H2CO3 Ratio ABG pH ABG pCO2 ABG pO2 ABG HCO3 ABG O2 Saturation ABG Base Excess FiO2 Sodium 137.6 Potassium 3.3 L Chloride 105 Carbon Dioxide 26 Anion Gap 7 BUN 9 Creatinine 0.69 Est GFR ( Amer) > 60 Glucose 73 L Calcium 6.8 L* Magnesium 2.0 Total Bilirubin 0.6 AST 155 H Alkaline Phosphatase 56 Total Protein 4.5 L Albumin 2.3 L 11/24/19 03:38 WBC RBC Hgb Hct MCV MCH MCHC RDW Plt Count Seg Neutrophils % Carbonic Acid 1.28 HCO3/H2CO3 Ratio 19:1 ABG pH 7.38 ABG pCO2 42.6 ABG pO2 48.6 L ABG HCO3 24.5 H ABG O2 Saturation 83.4 L ABG Base Excess -0.6 FiO2 100% Sodium Potassium Chloride Carbon Dioxide Anion Gap BUN Creatinine Est GFR ( Amer) Glucose Calcium Magnesium Total Bilirubin AST Alkaline Phosphatase Total Protein Albumin 11/22/19 21:44 Tracheal Aspirate Gram Stain - Final 11/22/19 21:44 Tracheal Aspirate Sputum Culture - Final NO GROWTH 2 DAYS 11/19/19 20:35 Troponin I < 0.012 NT-Pro-B Natriuret Pep 109 Impressions: Abdomen X-Ray 11/19/19 22:02 IMPRESSION: 1. Moderate colonic fecal retention, but no small bowel distention. Chest X-Ray 11/24/19 08:11 IMPRESSION: CENTRAL LINE PLACEMENT IN SATISFACTORY POSITION WITH NO PNEUMOTHORAX. OTHERWISE NO CHANGE. DIFFUSE AIRSPACE DISEASE. Abdomen/Pelvis CT 11/24/19 08:23 IMPRESSION: 1. LINEAR RADIOPAQUE DENSITY IN THE RECTUM. UNCERTAIN ETIOLOGY. THIS MAY BE RELATED TO PRIOR SURGERY OR COULD BE AN INGESTED OR INSERTED OBJECT. 2. BILATERAL PULMONARY INFILTRATES AND PLEURAL EFFUSIONS. 3. NO OTHER SIGNIFICANT OR ACUTE PROCESS IN THE ABDOMEN OR PELVIS. Assessment & Plan - Diagnosis (1) Acute respiratory failure with hypoxia Is this a current diagnosis for this admission?: Yes (2) Constipation Qualifiers: Constipation type: slow transit constipation Qualified Code(s): K59.01 - Slow transit constipation Is this a current diagnosis for this admission?: Yes - Plan Summary Plan Summary: This is a 44-year-old male, seen in consultation at the request of the house wirer service. The patient is in ARDS. He is not tolerating tube feeds. He has a long history of chronic constipation. Surgery has been requested to evaluate the patient's abdomen. He has had a CT scan of the abdomen and pelvis (I have reviewed the films and report), that failed to show any obvious pathology. His abdominal exam appears benign today. I cannot elicit any abdominal tenderness. His rectal exam is essentially normal, except that he has a large amount of liquid stool coming from the rectum. I recommend sending a sample for C. difficile. I have also recommended a Flexi-Seal with 2-hour rec chun irrigation to ensure that his bowels are able to move properly. With proper cathartics, the patient should be able to tolerate tube feedings. I do not believe the patient has any intra-abdominal pathology that would require surgical intervention. Surgery will continue to follow with you.
[2019-11-24] MEDS ORDERED: PEG 3350/NA SULF,BICARB,CL/KCL 4000 ML PO ONE (20:48)
[2019-11-24] MEDS: GUAIFENESIN SYRP 200 MG/10 ML UDC PO PRN (21:46)
[2019-11-24] MEDS: HYDROCORTISONE SOD SUCCINATE INJ/PF 100 MG/2 ML SDV IV SCH (21:47)
[2019-11-24] MEDS: CEFTRIAXONE 2 GM/D5W RTU 2 GM/50 ML RTUPB IV SCH (21:47)
[2019-11-24] MEDS ORDERED: PEG 3350/NA SULF,BICARB,CL/KCL 4000 ML ONE (21:55)
[2019-11-25] MEDS: IPRATROPIUM/ALBUTEROL 0.5-2.5 MG/3 ML AMPUL NEB SCH ×4 (02:17→19:13)
[2019-11-25] MEDS: OXCARBAZEPINE 300 MG/5 ML SUSP 250ML/BOTTLE NG SCH ×3 (02:45→17:57)
[2019-11-25 05:24] LABS: ARTERIAL BLOOD BASE EXCESS 2.3 mmol/L; ARTERIAL BLOOD FIO2 60%; ARTERIAL BLOOD H2CO3 0.85 mmol/L (1.05-1.35); ARTERIAL BLOOD HCO3 24.3 mmol/L (20-24); ARTERIAL BLOOD O2 SATURATION 88.9 % (94-98); ARTERIAL BLOOD PCO2 28.3 mmHg (35-45); ARTERIAL BLOOD PH 7.55 (7.35-7.45); ARTERIAL BLOOD PO2 47.1 mmHg (80-100); ARTERIAL BLOOD TOTAL CO2 25.2 mmol/L (23-27)
[2019-11-25 05:28] LABS: ABSOLUTE LYMPHOCYTES (AUTO) 0.4 10^3/uL (0.5-4.7); ABSOLUTE MONOCYTES (AUTO) 0.2 10^3/uL (0.1-1.4); ABSOLUTE NEUT (AUTO) 5.1 10^3/uL (1.7-8.2); BASOPHILS % (AUTO) 0.3 % (0-2); HEMATOCRIT 25.1 % (37.9-51.0); HEMOGLOBIN 8.9 g/dL (13.5-17.0); LYMPHOCYTES % (AUTO) 6.2 % (13-45); MEAN CORPUSCULAR HEMOGLOBIN 30.1 pg (27.0-33.4); MEAN CORPUSCULAR HGB CONC 35.6 g/dL (32.0-36.0); MEAN CORPUSCULAR VOLUME 85 fl (80-97); MONOCYTES % (AUTO) 4.2 % (3-13); PLATELET COUNT 228 10^3/uL (150-450); RED BLOOD COUNT 2.95 10^6/uL (4.35-5.55); RED CELL DISTRIBUTION WIDTH 14.2 % (11.5-14.0); SEGMENTED NEUTROPHILS % (AUTO) 89.3 % (42-78); TOTAL CELLS COUNTED % (AUTO) 100 %; WHITE BLOOD COUNT 5.7 10^3/uL (4.0-10.5)
[2019-11-25] MEDS: HEPARIN SOD (PORCINE) 5,000 UNIT/ML 1 ML VIAL SUBCUT SCH ×3 (05:31→21:09)
[2019-11-25] MEDS: HYDROCORTISONE SOD SUCCINATE INJ/PF 100 MG/2 ML SDV IV SCH ×3 (05:31→21:08)
[2019-11-25] MEDS: LEVOFLOXACIN 500 MG/D5W RTU 500 MG/100 ML RTUPB IV SCH (05:31)
[2019-11-25] MEDS: METRONIDAZOLE 500 MG/NS RTU 500 MG/100 ML RTUPB IV SCH ×3 (05:31→22:45)
[2019-11-25 05:46] LABS: ALBUMIN 2.2 g/dL (3.5-5.0); ALKALINE PHOSPHATASE 54 U/L (38-126); ANION GAP 8 (5-19); ASPARTATE AMINO TRANSFERASE 194 U/L (17-59); BILIRUBIN,DIRECT 0.1 mg/dL (0.0-0.4); BILIRUBIN,TOTAL 0.4 mg/dL (0.2-1.3); BLOOD UREA NITROGEN 8 mg/dL (7-20); CARBON DIOXIDE 26 mmol/L (22-30); CHLORIDE 101 mmol/L (98-107); GLUCOSE 152 mg/dL (75-110); POTASSIUM 3.1 mmol/L (3.6-5.0); TOTAL PROTEIN 4.5 g/dL (6.3-8.2); TRIGLYCERIDES 218 mg/dL (<150)
[2019-11-25 05:49] LABS: CALCIUM 6.7 mg/dL (8.4-10.2)
[2019-11-25] MEDS: PROPOFOL 1,000 MG/100 ML INFUS..BTL IV PRN ×2 (07:53→17:56)
[2019-11-25] MEDS: FENTANYL CITRATE/PF 600 MCG/60 ML BAG IV PRN ×2 (09:32→23:51)
[2019-11-25] MEDS: MIDAZOLAM HCL 50 MG/100 ML RTUINJ IV PRN (09:43)
[2019-11-25] MEDS: PANTOPRAZOLE SODIUM 40 MG VIAL IV SCH (09:44)
[2019-11-25] MEDS ORDERED: POTASSIUM CHLORIDE 20 MEQ/50 ML RTU IV ONE (11:00)
[2019-11-25] MEDS: POTASSIUM CHLORIDE 20 MEQ/50 ML RTU IV SCH ×4 (11:39→23:09)
--- NOTE | 2019-11-25 11:56 | PDOC PROGRESS REPORT ---
Subjective Subjective:: Patient remains sedated, on ventilator. Rectal drainage system in place. Patient on propofol drip. Now off pressors, hemodynamically stable Reason For Visit: ACUTE RESPIRATORY FAILURE Physical Exam Vital Signs: Temp Pulse Resp BP Pulse Ox 99.0 F 93 0 L 93/60 L 94 11/25/19 08:00 11/25/19 10:00 11/25/19 11:16 11/25/19 11:16 11/25/19 11:44 Intake & Output 11/24/19 11/25/19 11/26/19 06:59 06:59 06:59 Intake Total 3208 2015 171 Output Total 173 3530 400 Balance 0698 -1520 -229 Weight 96.3 kg 94.6 kg General appearance: PRESENT: other - Intubated, sedated GI/Abdominal exam: PRESENT: other - Abdomen slightly distended, hypoactive bowel sounds. Results Laboratory Results: 11/25/19 04:45 11/25/19 04:45 11/25/19 11/25/19 11/25/19 04:45 04:45 04:53 WBC 5.7 RBC 2.95 L Hgb 8.9 L Hct 25.1 L MCV 85 MCH 30.1 MCHC 35.6 RDW 14.2 H Plt Count 228 Seg Neutrophils % 89.3 H Carbonic Acid 0.85 L HCO3/H2CO3 Ratio 28:1 ABG pH 7.55 H ABG pCO2 28.3 L ABG pO2 47.1 L ABG HCO3 24.3 H ABG O2 Saturation 88.9 L ABG Base Excess 2.3 FiO2 60% Sodium 134.7 L Potassium 3.1 L Chloride 101 Carbon Dioxide 26 Anion Gap 8 BUN 8 Creatinine 0.63 Est GFR ( Amer) > 60 Glucose 152 H Calcium 6.7 L* Total Bilirubin 0.4 AST 194 H Alkaline Phosphatase 54 Total Protein 4.5 L Albumin 2.2 L Triglycerides 218 H 11/19/19 21:15 Blood Blood Culture - Final NO GROWTH IN 5 DAYS 11/19/19 20:55 Blood Blood Culture - Final NO GROWTH IN 5 DAYS 11/22/19 21:44 Tracheal Aspirate Gram Stain - Final 11/22/19 21:44 Tracheal Aspirate Sputum Culture - Final NO GROWTH 2 DAYS 11/19/19 20:35 Troponin I < 0.012 NT-Pro-B Natriuret Pep 109 Impressions: Abdomen X-Ray 11/19/19 22:02 IMPRESSION: 1. Moderate colonic fecal retention, but no small bowel distention. Chest X-Ray 11/24/19 08:11 IMPRESSION: CENTRAL LINE PLACEMENT IN SATISFACTORY POSITION WITH NO PNEUMOTHORAX. OTHERWISE NO CHANGE. DIFFUSE AIRSPACE DISEASE. Abdomen/Pelvis CT 11/24/19 08:23 IMPRESSION: 1. LINEAR RADIOPAQUE DENSITY IN THE RECTUM. UNCERTAIN ETIOLOGY. THIS MAY BE RELATED TO PRIOR SURGERY OR COULD BE AN INGESTED OR INSERTED OBJECT. 2. BILATERAL PULMONARY INFILTRATES AND PLEURAL EFFUSIONS. 3. NO OTHER SIGNIFICANT OR ACUTE PROCESS IN THE ABDOMEN OR PELVIS. Assessment & Plan - Diagnosis (1) Constipation Qualifiers: Constipation type: slow transit constipation Qualified Code(s): K59.01 - Slow transit constipation Is this a current diagnosis for this admission?: Yes Plan: Impression: Functional constipation, no evidence of acute abdomen Recommendations: 1. Agree with lactulose enema, multiple as needed; cathartics 2. Continue rectal drainage system 3. We will sign off from surgical standpoint; reconsult if clinically indicated. (2) Acute respiratory failure with hypoxia Is this a current diagnosis for this admission?: Yes - Time Time Spent with patient: 15-24 minutes Medications reviewed and adjusted accordingly: Yes Anticipated discharge: Home
[2019-11-25] MEDS ORDERED: LACTULOSE SYRUP 20 GM/30 ML UDCUP PR ONE (12:00)
[2019-11-25 12:35] LABS: PHOSPHORUS 3.3 mg/dL (2.5-4.5)
--- NOTE | 2019-11-25 14:39 | Operative Report ---
Bedside Procedure - History of Present Illness Indication for Procedure: Self extubation Date: 11/25/19 Provider: KIM LOZANO - Patient self extubated. This was immediately recognized. He was supported via bagging. He was reintubated with a #8 endotracheal tube with the assistance of the glide scope to 25 at the lips as before. This was well-tolerated with good change in the CO2 monitor.
--- NOTE | 2019-11-25 14:48 | PDOC CRITICAL CARE PROG REPORT ---
General Date:: 11/25/19 Resuscitation Status: Do Not Resuscitate Events in the past 12 to 24 Hours:: 44-year-old white male with significant developmental delay is cared for by his mother. He has terrible eating habits and presented with what was felt to be an aspiration pneumonia. He required intubation. The last few days the issue is been abdominal distention and difficulty in ventilation. He is improved as his bowels have started moving with aggressive invention as recommended by surgery. He had a lactulose enema today. He remains on pressure control ventilation but has stabilized. He required Levophed yesterday but no longer. He is DNR per his mother and family's wishes. Reason for ICU Addmission:: Respiratory failure Physical Exam Vital Signs: Temp Pulse Resp BP Pulse Ox 99.5 F 95 25 H 93/60 L 90 L 11/25/19 12:00 11/25/19 14:00 11/25/19 14:00 11/25/19 12:00 11/25/19 14:00 Intake & Output 11/24/19 11/25/19 11/26/19 06:59 06:59 06:59 Intake Total 3208 2015 171 Output Total 1730 3535 575 Balance 1478 -1520 -404 Weight 96.3 kg 94.6 kg Weight/Height Weight 94.6 kg Height 5 ft 7 in General appearance: PRESENT: no acute distress - Orally intubated and sedated on the ventilator Head exam: PRESENT: normocephalic Mouth exam: PRESENT: tongue midline Neck exam: ABSENT: JVD, lymphadenopathy, thyromegaly Respiratory exam: PRESENT: rales Cardiovascular exam: PRESENT: RRR Pulses: PRESENT: normal radial pulses GI/Abdominal exam: PRESENT: distended, firm, hypoactive bowel sounds Extremities exam: PRESENT: +1 edema Laboratory/Radiographs Laboratory Results: 11/25/19 04:45 11/25/19 04:45 11/25/19 11/25/19 11/25/19 04:45 04:45 04:45 WBC 5.7 RBC 2.95 L Hgb 8.9 L Hct 25.1 L MCV 85 MCH 30.1 MCHC 35.6 RDW 14.2 H Plt Count 228 Seg Neutrophils % 89.3 H Carbonic Acid HCO3/H2CO3 Ratio ABG pH ABG pCO2 ABG pO2 ABG HCO3 ABG O2 Saturation ABG Base Excess FiO2 Sodium 134.7 L Potassium 3.1 L Chloride 101 Carbon Dioxide 26 Anion Gap 8 BUN 8 Creatinine 0.63 Est GFR ( Amer) > 60 Glucose 152 H Calcium 6.7 L* Phosphorus 3.3 Magnesium 2.2 Total Bilirubin 0.4 AST 194 H Alkaline Phosphatase 54 Total Protein 4.5 L Albumin 2.2 L Triglycerides 218 H 11/25/19 04:53 WBC RBC Hgb Hct MCV MCH MCHC RDW Plt Count Seg Neutrophils % Carbonic Acid 0.85 L HCO3/H2CO3 Ratio 28:1 ABG pH 7.55 H ABG pCO2 28.3 L ABG pO2 47.1 L ABG HCO3 24.3 H ABG O2 Saturation 88.9 L ABG Base Excess 2.3 FiO2 60% Sodium Potassium Chloride Carbon Dioxide Anion Gap BUN Creatinine Est GFR ( Amer) Glucose Calcium Phosphorus Magnesium Total Bilirubin AST Alkaline Phosphatase Total Protein Albumin Triglycerides 11/23/19 04:11 Tay Catheter Urine Culture - Final NO GROWTH 2 DAYS 11/19/19 21:15 Blood Blood Culture - Final NO GROWTH IN 5 DAYS 11/19/19 20:55 Blood Blood Culture - Final NO GROWTH IN 5 DAYS 11/19/19 20:35 Troponin I < 0.012 NT-Pro-B Natriuret Pep 109 Impressions: Abdomen X-Ray 11/19/19 22:02 IMPRESSION: 1. Moderate colonic fecal retention, but no small bowel distention. Chest X-Ray 11/24/19 08:11 IMPRESSION: CENTRAL LINE PLACEMENT IN SATISFACTORY POSITION WITH NO PNEUMOTHORAX. OTHERWISE NO CHANGE. DIFFUSE AIRSPACE DISEASE. Abdomen/Pelvis CT 11/24/19 08:23 IMPRESSION: 1. LINEAR RADIOPAQUE DENSITY IN THE RECTUM. UNCERTAIN ETIOLOGY. THIS MAY BE RELATED TO PRIOR SURGERY OR COULD BE AN INGESTED OR INSERTED OBJECT. 2. BILATERAL PULMONARY INFILTRATES AND PLEURAL EFFUSIONS. 3. NO OTHER SIGNIFICANT OR ACUTE PROCESS IN THE ABDOMEN OR PELVIS. Assessment and Plan - Diagnosis (1) Acute respiratory failure with hypoxia Is this a current diagnosis for this admission?: Yes (2) Pneumonia Qualifiers: Pneumonia type: aspiration pneumonia Aspiration pneumonia type: unspecified Laterality: bilateral Is this a current diagnosis for this admission?: Yes (3) Constipation Qualifiers: Constipation type: slow transit constipation Qualified Code(s): K59.01 - Slow transit constipation Is this a current diagnosis for this admission?: Yes Plan Summary: Chronic constipation and poor eating habits leading to aspiration ARDS and respiratory failure secondary to above Difficult ventilation due to the ARDS as well as the abdominal distention Continue aggressive bowel regiment 1 dose of mag citrate from above Continue current antibiotics, Flagyl added yesterday Wean FiO2 as tolerated, back to volume ventilation soon Hold on enteral feeding for now Critical Time Critical Time (minutes): 45 - independent of procedure Level of Care: ICU -: 1. The care of a critical patient is a dynamic process. This note is a sales representative uniforms synopsis but static in nature. The timeframe for treatments given in order is not necessarily the actual time these treatments may have been done. 2. This patient requires critical care secondary to ongoing requirements for therapy not offered or safe outside the critical care environment. Transfer to a lower level of care will result in altered life or limb morbidity and mortality. 3. Multidisciplinary rounds completed. 4. ABCDE bundle addressed.
--- NOTE | 2019-11-25 15:12 | RADIOLOGY REPORT (SQ) ---
EXAM DESCRIPTION: KUB/ABDOMEN (SINGLE VIEW) COMPLETED DATE/TIME: 11/25/2019 2:58 pm REASON FOR STUDY: OGT placement COMPARISON: None. NUMBER OF VIEWS: One view. TECHNIQUE: A supine AP view of the abdomen was obtained LIMITATIONS: None. FINDINGS: BOWEL GAS PATTERN: Air-filled distended loops of small bowel that measure up to 2.7 cm in diameter. CALCIFICATIONS: None. SOFT TISSUES: No abnormality. HARDWARE: None in the abdomen. BONES: The tip and side hole of the enteric tube project past the gastroesophageal junction and withi n the gastric lumen. OTHER: No other finding. IMPRESSION: The tip and side hole of the enteric tube project past the gastroesophageal junction and within the gastric lumen. TECHNICAL DOCUMENTATION: JOB ID: [id number] 2010 [employer]- All Rights Reserved Reading location - IP/workstation name: [email or web address]
[2019-11-25] MEDS ORDERED: MAGNESIUM CITRATE 296 ML BOTTLE PO ONE (16:30)
[2019-11-25] MEDS: CEFTRIAXONE 2 GM/D5W RTU 2 GM/50 ML RTUPB IV SCH (21:06)
[2019-11-26] MEDS: POTASSIUM CHLORIDE 20 MEQ/50 ML RTU IV SCH (01:14)
[2019-11-26] MEDS: IPRATROPIUM/ALBUTEROL 0.5-2.5 MG/3 ML AMPUL NEB SCH ×4 (02:23→19:47)
[2019-11-26 02:37] LABS: ARTERIAL BLOOD BASE EXCESS 3.4 mmol/L; ARTERIAL BLOOD H2CO3 1.08 mmol/L (1.05-1.35); ARTERIAL BLOOD HCO3 26.7 mmol/L (20-24); ARTERIAL BLOOD O2 SATURATION 97.4 % (94-98); ARTERIAL BLOOD PCO2 35.8 mmHg (35-45); ARTERIAL BLOOD PH 7.49 (7.35-7.45); ARTERIAL BLOOD TOTAL CO2 27.8 mmol/L (23-27)
[2019-11-26 02:38] LABS: ARTERIAL BLOOD FIO2 75%
[2019-11-26] MEDS: OXCARBAZEPINE 300 MG/5 ML SUSP 250ML/BOTTLE NG SCH ×3 (03:46→17:02)
[2019-11-26] MEDS: LEVOFLOXACIN 500 MG/D5W RTU 500 MG/100 ML RTUPB IV SCH (05:29)
[2019-11-26] MEDS: HYDROCORTISONE SOD SUCCINATE INJ/PF 100 MG/2 ML SDV IV SCH ×3 (05:30→21:19)
[2019-11-26] MEDS: HEPARIN SOD (PORCINE) 5,000 UNIT/ML 1 ML VIAL SUBCUT SCH ×3 (05:30→21:19)
[2019-11-26 06:02] LABS: HEMATOCRIT 24.9 % (37.9-51.0); HEMOGLOBIN 8.6 g/dL (13.5-17.0); MEAN CORPUSCULAR HEMOGLOBIN 29.8 pg (27.0-33.4); MEAN CORPUSCULAR HGB CONC 34.6 g/dL (32.0-36.0); MEAN CORPUSCULAR VOLUME 86 fl (80-97); PLATELET COUNT 233 10^3/uL (150-450); RED BLOOD COUNT 2.89 10^6/uL (4.35-5.55); RED CELL DISTRIBUTION WIDTH 14.2 % (11.5-14.0); WHITE BLOOD COUNT 5.4 10^3/uL (4.0-10.5)
[2019-11-26 06:22] LABS: ANION GAP 5 (5-19); BLOOD UREA NITROGEN 16 mg/dL (7-20); CARBON DIOXIDE 30 mmol/L (22-30); CHLORIDE 102 mmol/L (98-107); GLUCOSE 152 mg/dL (75-110); POTASSIUM 3.6 mmol/L (3.6-5.0)
[2019-11-26 06:33] LABS: CALCIUM 6.8 mg/dL (8.4-10.2)
[2019-11-26] MEDS: METRONIDAZOLE 500 MG/NS RTU 500 MG/100 ML RTUPB IV SCH ×3 (06:34→21:19)
[2019-11-26] MEDS: PROPOFOL 1,000 MG/100 ML INFUS..BTL IV PRN ×3 (06:35→23:00)
--- NOTE | 2019-11-26 07:57 | RADIOLOGY REPORT (SQ) ---
EXAM DESCRIPTION: CHEST SINGLE VIEW COMPLETED DATE/TIME: 11/26/2019 5:57 am REASON FOR STUDY: ards COMPARISON: Chest films 11/19/2019, 11/21/2019, 11/24/2019 EXAM PARAMETERS: NUMBER OF VIEWS: One view. TECHNIQUE: Single frontal radiographic view of the chest acquired. RADIATION DOSE: NA LIMITATIONS: None. FINDINGS: LUNGS AND PLEURA: Diffuse consolidation throughout the right lung and left perihilar/lower lobe region from ARDS is unchanged from 11/24/2019. No pleural effusions. No pneumothorax. MEDIASTINUM AND HILAR STRUCTURES: No masses. Contour normal. HEART AND VASCULAR STRUCTURES: No cardiomegaly BONES: No acute findings. HARDWARE: Endotracheal tube tip 5 cm above the ernie. Nasogastric tube tip and side port in the sto mach. Right-sided triple-lumen catheter tip in the right atrium OTHER: No other significant finding. IMPRESSION: No change in diffuse bilateral airspace disease Tubes and lines unchanged TECHNICAL DOCUMENTATION: JOB ID: [id number] 2010 [employer]- All Rights Reserved Reading location - IP/workstation name: [email or web address]
[2019-11-26] MEDS: PANTOPRAZOLE SODIUM 40 MG VIAL IV SCH (09:54)
[2019-11-26 16:44] LABS: ARTERIAL BLOOD BASE EXCESS 3.5 mmol/L; ARTERIAL BLOOD H2CO3 1.11 mmol/L (1.05-1.35); ARTERIAL BLOOD HCO3 27.1 mmol/L (20-24); ARTERIAL BLOOD O2 SATURATION 96.1 % (94-98); ARTERIAL BLOOD PCO2 36.8 mmHg (35-45); ARTERIAL BLOOD PH 7.49 (7.35-7.45); ARTERIAL BLOOD PO2 75.9 mmHg (80-100); ARTERIAL BLOOD TOTAL CO2 28.2 mmol/L (23-27)
[2019-11-26 16:45] LABS: ARTERIAL BLOOD FIO2 70%
[2019-11-26] MEDS: FENTANYL CITRATE/PF 600 MCG/60 ML BAG IV PRN ×2 (17:05→23:00)
[2019-11-26] MEDS: FAMOTIDINE 20 MG TABLET PO SCH (21:19)
--- NOTE | 2019-11-26 21:45 | PDOC CRITICAL CARE PROG REPORT ---
General Date:: 11/26/19 ICU Day:: 7 Ventilator Day:: 7 Hospital Day:: 7 Resuscitation Status: Do Not Resuscitate Medical Power of Structural Steel Detailer: Mother and sister Events in the past 12 to 24 Hours:: Patient's FiO2 has been weaning down. Chest x-ray is improving Review of systems relevant to events:: Reduction in sedation with discontinuation of Versed today. Patient had some agitation which was controlled with propofol and fentanyl. No hypotension Reason for ICU Addmission:: Respiratory failure - Medications: Medications reviewed and adjusted accordingly: Yes Vasopressors:: none Sedation:: Propofol and fentanyl Physical Exam Vital Signs: Temp Pulse Resp BP Pulse Ox 96.6 F L 87 26 H 105/67 90 L 11/26/19 19:51 11/26/19 20:33 11/26/19 19:48 11/26/19 18:17 11/26/19 19:48 Intake & Output 11/25/19 11/26/19 11/27/19 06:59 06:59 06:59 Intake Total 2115 787 469 Output Total 3535 3045 675 Balance -9820 -4454 -206 Weight 94.6 kg 83.2 kg 83.2 kg Weight/Height Weight 83.2 kg Height 5 ft 7 in General appearance: PRESENT: no acute distress, disheveled, obese, well- developed, well-nourished Exam: Intubated nontoxic ill 44-year-old male no active distress Head exam: PRESENT: atraumatic Eye exam: PRESENT: conjunctiva pink, PERRLA. ABSENT: conjunctival injection, nystagmus, scleral icterus Mouth exam: PRESENT: dry mucosa, neck supple Teeth exam: PRESENT: poor dentation Neck exam: ABSENT: carotid bruit, JVD, lymphadenopathy Respiratory exam: PRESENT: clear to auscultation bryn, tachypnea - Later in day off versed. Improved with increase in propofol, unlabored. ABSENT: accessory muscle use, rales, rhonchi, wheezes Cardiovascular exam: PRESENT: RRR. ABSENT: bradycardia, diastolic murmur, rubs, systolic murmur Pulses: PRESENT: +1 pedal pulses bilateral Vascular exam: PRESENT: normal capillary refill. ABSENT: pallor GI/Abdominal exam: PRESENT: normal bowel sounds, soft. ABSENT: ascites, distended, guarding, mass, organolmegaly, rebound, tenderness Rectal exam: PRESENT: deferred Gentrourinary exam: PRESENT: indwelling catheter Extremities exam: PRESENT: pedal edema Musculoskeletal exam: PRESENT: deformity, dislocation Neurological exam: PRESENT: altered Psychiatric exam: ABSENT: agitated Focused psych exam: ABSENT: psychomotor agitation, restlessness Skin exam: PRESENT: dry, intact, warm. ABSENT: cyanosis, mottled, rash Tubes/Lines: PRESENT: Endotracheal Tube, Central Line, Other - Tay, OG tube Laboratory/Radiographs Laboratory Results: 11/26/19 05:44 11/26/19 05:44 11/26/19 11/26/19 11/26/19 02:11 02:26 02:26 WBC RBC Hgb Hct MCV MCH MCHC RDW Plt Count Carbonic Acid 1.08 HCO3/H2CO3 Ratio 24:1 ABG pH 7.49 H ABG pCO2 35.8 ABG pO2 89.0 ABG HCO3 26.7 H ABG O2 Saturation 97.4 ABG Base Excess 3.4 FiO2 75% Sodium Potassium Chloride Carbon Dioxide Anion Gap BUN Creatinine Est GFR ( Amer) Glucose Calcium Ionized Calcium Christie 1.05 L Phosphorus 3.2 11/26/19 11/26/19 11/26/19 05:44 05:44 16:34 WBC 5.4 RBC 2.89 L Hgb 8.6 L Hct 24.9 L MCV 86 MCH 29.8 MCHC 34.6 RDW 14.2 H Plt Count 233 Carbonic Acid 1.11 HCO3/H2CO3 Ratio 24:1 ABG pH 7.49 H ABG pCO2 36.8 ABG pO2 75.9 L ABG HCO3 27.1 H ABG O2 Saturation 96.1 ABG Base Excess 3.5 FiO2 70% Sodium 136.9 L Potassium 3.6 Chloride 102 Carbon Dioxide 30 Anion Gap 5 BUN 16 Creatinine 0.60 Est GFR ( Amer) > 60 Glucose 152 H Calcium 6.8 L* Ionized Calcium Christie Phosphorus 11/19/19 20:35 Troponin I < 0.012 NT-Pro-B Natriuret Pep 109 Impressions: Abdomen X-Ray 11/19/19 22:02 IMPRESSION: 1. Moderate colonic fecal retention, but no small bowel distention. Abdomen/Pelvis CT 11/24/19 08:23 IMPRESSION: 1. LINEAR RADIOPAQUE DENSITY IN THE RECTUM. UNCERTAIN ETIOLOGY. THIS MAY BE RELATED TO PRIOR SURGERY OR COULD BE AN INGESTED OR INSERTED OBJECT. 2. BILATERAL PULMONARY INFILTRATES AND PLEURAL EFFUSIONS. 3. NO OTHER SIGNIFICANT OR ACUTE PROCESS IN THE ABDOMEN OR PELVIS. KUB X-Ray 11/25/19 14:28 IMPRESSION: The tip and side hole of the enteric tube project past the gastroesophageal junction and within the gastric lumen. Chest X-Ray 11/26/19 05:00 IMPRESSION: No change in diffuse bilateral airspace disease Tubes and lines unchanged All labs, radiographs, diagnostic studies and EKGs were personally reviewed: Yes In addition, reports of radiographic and diagnostic studies were read: Yes Assessment and Plan - Diagnosis (1) Acute respiratory failure with hypoxia Is this a current diagnosis for this admission?: Yes (2) Autism Is this a current diagnosis for this admission?: Yes (3) Fecal impaction Is this a current diagnosis for this admission?: Yes (4) Pneumonia Qualifiers: Pneumonia type: aspiration pneumonia Aspiration pneumonia type: unspecified Laterality: bilateral Is this a current diagnosis for this admission?: Yes Plan Summary: We will continue to wean FiO2 and then ventilator requirements. Patient has significant pneumonia seen on chest x-ray but it is improving. Continue vent management with ARDS protocol Start tube feedings today Met with family and discussed prognosis at bedside. Critical Time Critical Time (minutes): 50 Level of Care: ICU Anticipated discharge: Acute Rehab -: 1. The care of a critical patient is a dynamic process. This note is a sales and marketing representative synopsis but static in nature. The timeframe for treatments given in order is not necessarily the actual time these treatments may have been done. 2. This patient requires critical care secondary to ongoing requirements for therapy not offered or safe outside the critical care environment. Transfer to a lower level of care will result in altered life or limb morbidity and mortality. 3. Multidisciplinary rounds completed. 4. ABCDE bundle addressed.
[2019-11-27] MEDS: OXCARBAZEPINE 300 MG/5 ML SUSP 250ML/BOTTLE NG SCH ×3 (01:35→19:32)
[2019-11-27] MEDS: IPRATROPIUM/ALBUTEROL 0.5-2.5 MG/3 ML AMPUL NEB SCH ×4 (02:25→19:57)
[2019-11-27] MEDS: PROPOFOL 1,000 MG/100 ML INFUS..BTL IV PRN ×4 (03:25→21:35)
[2019-11-27 04:16] LABS: ARTERIAL BLOOD BASE EXCESS 2.1 mmol/L; ARTERIAL BLOOD H2CO3 1.11 mmol/L (1.05-1.35); ARTERIAL BLOOD HCO3 25.9 mmol/L (20-24); ARTERIAL BLOOD O2 SATURATION 96.1 % (94-98); ARTERIAL BLOOD PCO2 36.9 mmHg (35-45); ARTERIAL BLOOD PH 7.46 (7.35-7.45); ARTERIAL BLOOD PO2 77.2 mmHg (80-100)
[2019-11-27 04:22] LABS: HEMATOCRIT 24.7 % (37.9-51.0); HEMOGLOBIN 8.7 g/dL (13.5-17.0); MEAN CORPUSCULAR HEMOGLOBIN 30.4 pg (27.0-33.4); MEAN CORPUSCULAR HGB CONC 35.1 g/dL (32.0-36.0); MEAN CORPUSCULAR VOLUME 87 fl (80-97); PLATELET COUNT 270 10^3/uL (150-450); RED BLOOD COUNT 2.85 10^6/uL (4.35-5.55); RED CELL DISTRIBUTION WIDTH 14.3 % (11.5-14.0); WHITE BLOOD COUNT 7.2 10^3/uL (4.0-10.5)
[2019-11-27 04:30] LABS: BLOOD UREA NITROGEN 20 mg/dL (7-20); GLUCOSE 133 mg/dL (75-110); PHOSPHORUS 2.8 mg/dL (2.5-4.5); POTASSIUM 3.7 mmol/L (3.6-5.0)
[2019-11-27 04:36] LABS: CARBON DIOXIDE 30 mmol/L (22-30); CHLORIDE 102 mmol/L (98-107)
[2019-11-27] MEDS: FENTANYL CITRATE/PF 600 MCG/60 ML BAG IV PRN ×3 (04:43→20:04)
[2019-11-27 04:54] LABS: ANION GAP 4 (5-19)
[2019-11-27 05:09] LABS: ABSOLUTE LYMPHOCYTES# (MANUAL) 0.9 10^3/uL (0.5-4.7); ABSOLUTE MONOCYTES # (MANUAL) 0.4 10^3/uL (0.1-1.4); BAND NEUTROPHILS % (MANUAL) 4 % (3-5); BASOPHILS % (MANUAL) 0 % (0-2); EOSINOPHILS % (MANUAL) 0 % (0-6); LYMPHOCYTES % (MANUAL) 13 % (13-45); MONOCYTES % (MANUAL) 6 % (3-13); SEGMENTED NEUTROPHILS % (MAN) 77 % (42-78); TOTAL CELLS COUNTED 100
[2019-11-27 05:11] LABS: ANISOCYTOSIS SLIGHT; PLATELET COMMENT ADEQUATE; TEAR DROP CELLS SLIGHT
[2019-11-27] MEDS: METRONIDAZOLE 500 MG/NS RTU 500 MG/100 ML RTUPB IV SCH ×3 (05:29→21:45)
[2019-11-27] MEDS: HYDROCORTISONE SOD SUCCINATE INJ/PF 100 MG/2 ML SDV IV SCH ×3 (05:31→21:45)
[2019-11-27] MEDS: HEPARIN SOD (PORCINE) 5,000 UNIT/ML 1 ML VIAL SUBCUT SCH ×3 (05:32→21:45)
--- NOTE | 2019-11-27 08:11 | RADIOLOGY REPORT (SQ) ---
EXAM DESCRIPTION: CHEST SINGLE VIEW COMPLETED DATE/TIME: 11/27/2019 6:31 am REASON FOR STUDY: aspiration COMPARISON: 11/26/2019 NUMBER OF VIEWS: One view. TECHNIQUE: Single frontal radiographic image of the chest acquired. LIMITATIONS: None. FINDINGS: LUNGS AND PLEURA: Persistent bilateral alveolar airspace disease although improved from pr ior study. Small pleural effusions left greater than right MEDIASTINUM AND HILAR STRUCTURES: Stable heart size and mediastinal structures. HEART AND VASCULAR STRUCTURES: Stable appearance. SUPPORT DEVICES: Appropriate location without change. BONES: No acute findings. OTHER: No other significant finding. IMPRESSION: Persistent bilateral alveolar airspace disease slightly improved from prior study. TECHNICAL DOCUMENTATION: JOB ID: [id number] 2010 [employer]- All Rights Reserved Reading location - IP/workstation name: [email or web address]
[2019-11-27] MEDS: FAMOTIDINE 20 MG TABLET PO SCH ×2 (09:48→21:45)
[2019-11-27] MEDS ORDERED: FUROSEMIDE INJ/PF 40 MG/4 ML SDV IV ONE (15:39)
[2019-11-27] MEDS ORDERED: FUROSEMIDE INJ/PF 20 MG/2 ML SDV IV ONE (16:00)
--- NOTE | 2019-11-27 21:56 | PDOC CRITICAL CARE PROG REPORT ---
General Date:: 11/27/19 ICU Day:: 8 Ventilator Day:: 8 Hospital Day:: 8 Resuscitation Status: Do Not Resuscitate Medical Power of Corporate Executive Chef: Mother and sister Events in the past 12 to 24 Hours:: Patient's FiO2 continues to be weaning and he is now down to 50%. Additionally, Chest x-ray continues to improve. Had significant agitation issues but gentle readjustment of medications have improved this. Reason for ICU Addmission:: Respiratory failure Physical Exam Vital Signs: Temp Pulse Resp BP Pulse Ox 98.1 F 73 25 H 103/68 92 11/27/19 19:53 11/27/19 19:58 11/27/19 19:58 11/27/19 19:17 11/27/19 19:58 Intake & Output 11/26/19 11/27/19 11/28/19 06:59 06:59 06:59 Intake Total 787 828 415 Output Total 3045 995 1005 Balance -2258 -167 -590 Weight 83.2 kg 87.3 kg Weight/Height Weight 87.3 kg Height 5 ft 7 in General appearance: PRESENT: no acute distress, obese, well-developed, well- nourished Head exam: PRESENT: atraumatic, normocephalic Eye exam: PRESENT: conjunctival injection, PERRLA, other - Flittering eye lids but no nystagmus or automatisms. ABSENT: nystagmus Mouth exam: PRESENT: dry mucosa Neck exam: ABSENT: carotid bruit, JVD, lymphadenopathy Respiratory exam: PRESENT: clear to auscultation bryn. ABSENT: accessory muscle use, rales, rhonchi, wheezes Cardiovascular exam: PRESENT: RRR, +S1, +S2 Pulses: PRESENT: +1 pedal pulses bilateral GI/Abdominal exam: PRESENT: normal bowel sounds, soft. ABSENT: distended, guarding, mass, organolmegaly, rebound, tenderness Gentrourinary exam: PRESENT: indwelling catheter Extremities exam: PRESENT: +1 edema Musculoskeletal exam: ABSENT: deformity, dislocation Neurological exam: PRESENT: altered - Very sedated Skin exam: PRESENT: dry, intact, warm. ABSENT: cyanosis, rash Tubes/Lines: PRESENT: Endotracheal Tube, Central Line, Other - Tay Laboratory/Radiographs Laboratory Results: 11/27/19 04:04 11/27/19 04:04 11/27/19 11/27/19 11/27/19 04:04 04:04 04:04 WBC 7.2 RBC 2.85 L Hgb 8.7 L Hct 24.7 L MCV 87 MCH 30.4 MCHC 35.1 RDW 14.3 H Plt Count 270 Seg Neutrophils % Not Reportable Carbonic Acid 1.11 HCO3/H2CO3 Ratio 23:1 ABG pH 7.46 H ABG pCO2 36.9 ABG pO2 77.2 L ABG HCO3 25.9 H ABG O2 Saturation 96.1 ABG Base Excess 2.1 FiO2 68% Sodium 136.3 L Potassium 3.7 Chloride 102 Carbon Dioxide 30 Anion Gap 4 L BUN 20 Creatinine 0.56 Est GFR ( Amer) > 60 Glucose 133 H Calcium 7.0 L* Phosphorus 2.8 Magnesium 3.3 H 11/19/19 20:35 Troponin I < 0.012 NT-Pro-B Natriuret Pep 109 Impressions: Abdomen X-Ray 11/19/19 22:02 IMPRESSION: 1. Moderate colonic fecal retention, but no small bowel distention. Abdomen/Pelvis CT 11/24/19 08:23 IMPRESSION: 1. LINEAR RADIOPAQUE DENSITY IN THE RECTUM. UNCERTAIN ETIOLOGY. THIS MAY BE RELATED TO PRIOR SURGERY OR COULD BE AN INGESTED OR INSERTED OBJECT. 2. BILATERAL PULMONARY INFILTRATES AND PLEURAL EFFUSIONS. 3. NO OTHER SIGNIFICANT OR ACUTE PROCESS IN THE ABDOMEN OR PELVIS. KUB X-Ray 11/25/19 14:28 IMPRESSION: The tip and side hole of the enteric tube project past the gastroesophageal junction and within the gastric lumen. Chest X-Ray 11/27/19 06:00 IMPRESSION: Persistent bilateral alveolar airspace disease slightly improved from prior study. All labs, radiographs, diagnostic studies and EKGs were personally reviewed: Yes In addition, reports of radiographic and diagnostic studies were read: Yes Assessment and Plan - Diagnosis (1) Acute respiratory failure with hypoxia Is this a current diagnosis for this admission?: Yes (2) Autism Is this a current diagnosis for this admission?: Yes (3) Fecal impaction Is this a current diagnosis for this admission?: Yes (4) Pneumonia Qualifiers: Pneumonia type: aspiration pneumonia Aspiration pneumonia type: unspecified Laterality: bilateral Is this a current diagnosis for this admission?: Yes Plan Summary: 11.27.2019: Pt has made impressive gains in FiO2 reduction. His chest x-ray has followed in similar fashion. Tolerating his tube feeds without any abdominal distention or intolerance to tube feeds. His labs are improving. And concerned given his autism that sedation will be an ongoing issue. We will begin the slow implementation of Dexmetomidate in hopes to wean the significant amount of sedation he is required. This is not uncommon in patients with dimin ished mental capacity with history of autism We will continue supportive care Dated family at bedside 11.26.2019: We will continue to wean FiO2 and then ventilator requirements. Patient has significant pneumonia seen on chest x-ray but it is improving. Continue vent management with ARDS protocol Start tube feedings today Met with family and discussed prognosis at bedside. Critical Time Critical Time (minutes): 35 Level of Care: ICU -: 1. The care of a critical patient is a dynamic process. This note is a national account representative synopsis but static in nature. The timeframe for treatments given in order is not necessarily the actual time these treatments may have been done. 2. This patient requires critical care secondary to ongoing requirements for therapy not offered or safe outside the critical care environment. Transfer to a lower level of care will result in altered life or limb morbidity and m ortality. 3. Multidisciplinary rounds completed. 4. ABCDE bundle addressed.
[2019-11-28] MEDS: IPRATROPIUM/ALBUTEROL 0.5-2.5 MG/3 ML AMPUL NEB SCH ×4 (01:41→19:29)
[2019-11-28] MEDS: FENTANYL CITRATE/PF 600 MCG/60 ML BAG IV PRN ×7 (01:55→21:55)
[2019-11-28] MEDS: OXCARBAZEPINE 300 MG/5 ML SUSP 250ML/BOTTLE NG SCH ×3 (02:39→17:36)
[2019-11-28] MEDS: PROPOFOL 1,000 MG/100 ML INFUS..BTL IV PRN (03:19)
[2019-11-28] MEDS: METRONIDAZOLE 500 MG/NS RTU 500 MG/100 ML RTUPB IV SCH ×3 (06:32→21:30)
[2019-11-28] MEDS: HYDROCORTISONE SOD SUCCINATE INJ/PF 100 MG/2 ML SDV IV SCH ×3 (06:37→21:33)
[2019-11-28] MEDS: HEPARIN SOD (PORCINE) 5,000 UNIT/ML 1 ML VIAL SUBCUT SCH ×3 (06:38→21:33)
[2019-11-28 07:03] LABS: HEMATOCRIT 25.3 % (37.9-51.0); HEMOGLOBIN 8.7 g/dL (13.5-17.0); MEAN CORPUSCULAR HEMOGLOBIN 29.9 pg (27.0-33.4); MEAN CORPUSCULAR HGB CONC 34.3 g/dL (32.0-36.0); MEAN CORPUSCULAR VOLUME 87 fl (80-97); PLATELET COUNT 326 10^3/uL (150-450); RED BLOOD COUNT 2.89 10^6/uL (4.35-5.55); RED CELL DISTRIBUTION WIDTH 14.2 % (11.5-14.0); WHITE BLOOD COUNT 13.2 10^3/uL (4.0-10.5)
[2019-11-28 07:32] LABS: BLOOD UREA NITROGEN 29 mg/dL (7-20); CALCIUM 7.1 mg/dL (8.4-10.2); GLUCOSE 115 mg/dL (75-110); PHOSPHORUS 3.1 mg/dL (2.5-4.5); POTASSIUM 3.2 mmol/L (3.6-5.0); TRIGLYCERIDES 483 mg/dL (<150)
--- NOTE | 2019-11-28 07:33 | RADIOLOGY REPORT (SQ) ---
EXAM DESCRIPTION: XR ABDOMEN 1 VIEW (KUB) COMPLETED DATE/TME: 11/28/2019 00:00 CLINICAL HISTORY: new OG placement; please confirm proper placement COMPARISON: The FINDINGS: Bowel: No dilated loops of the visualized large or small bowel. Peritoneum: No free intraperitoneal air identified. Bones: Degenerative change of the spine. Other: NG tube with tip in side-port in the body of stomach. IMPRESSION: 1. NG tube with tip and side-port in appropriate position within the stomach.
[2019-11-28 07:37] LABS: CARBON DIOXIDE 33 mmol/L (22-30); CHLORIDE 102 mmol/L (98-107)
[2019-11-28 07:44] LABS: ANION GAP 3 (5-19)
[2019-11-28 07:47] LABS: ARTERIAL BLOOD BASE EXCESS 3.8 mmol/L; ARTERIAL BLOOD H2CO3 1.26 mmol/L (1.05-1.35); ARTERIAL BLOOD HCO3 28.2 mmol/L (20-24); ARTERIAL BLOOD O2 SATURATION 97.1 % (94-98); ARTERIAL BLOOD PCO2 41.8 mmHg (35-45); ARTERIAL BLOOD PH 7.45 (7.35-7.45); ARTERIAL BLOOD PO2 88.7 mmHg (80-100); ARTERIAL BLOOD TOTAL CO2 29.5 mmol/L (23-27)
[2019-11-28 07:48] LABS: ARTERIAL BLOOD FIO2 50%
[2019-11-28] MEDS ORDERED: POTASSIUM CHLORIDE 20 MEQ PACKET PO ONE (07:50)
[2019-11-28 07:56] LABS: ABSOLUTE LYMPHOCYTES# (MANUAL) 1.6 10^3/uL (0.5-4.7); ABSOLUTE MONOCYTES # (MANUAL) 1.3 10^3/uL (0.1-1.4); BAND NEUTROPHILS % (MANUAL) 2 % (3-5); BASOPHILS % (MANUAL) 0 % (0-2); EOSINOPHILS % (MANUAL) 0 % (0-6); LYMPHOCYTES % (MANUAL) 12 % (13-45); MONOCYTES % (MANUAL) 10 % (3-13); NUCLEATED RED BLOOD CELLS 1 /100 WBC (0); SEGMENTED NEUTROPHILS % (MAN) 76 % (42-78); TOTAL CELLS COUNTED 100
[2019-11-28 07:58] LABS: ANISOCYTOSIS SLIGHT; POLYCHROMASIA SLIGHT
[2019-11-28 07:59] LABS: PLATELET COMMENT ADEQUATE; PLATELET GIANT PRESENT
--- NOTE | 2019-11-28 08:47 | RADIOLOGY REPORT (SQ) ---
EXAM DESCRIPTION: CHEST SINGLE VIEW COMPLETED DATE/TIME: 11/28/2019 8:28 am REASON FOR STUDY: tube adjustment COMPARISON: Earlier same day. NUMBER OF VIEWS: One view. TECHNIQUE: Single frontal radiographic image of the chest acquired. LIMITATIONS: None. FINDINGS: LUNGS AND PLEURA: Improved aeration. No pneumothorax. MEDIASTINUM AND HEART: Stable heart size and mediastinal structures. SUPPORT DEVICES: Appropriate position of endotracheal tube, nasogastric tube and right-sided central line. BONY STRUCTURES: No acute findings. HARDWARE: None. OTHER: No other significant finding. IMPRESSION: Good position of support apparatus. No pneumothorax. Reading location - IP/workstation name: [email or web address]
[2019-11-28] MEDS: DEXMEDETOMIDINE IN 0.9 % NACL 400 MCG/100 ML RTUPB IV PRN ×2 (08:50→15:03)
[2019-11-28] MEDS ORDERED: OXCARBAZEPINE 150 MG TABLET PO ONE (09:00)
--- NOTE | 2019-11-28 09:14 | RADIOLOGY REPORT (SQ) ---
EXAM DESCRIPTION: CHEST SINGLE VIEW COMPLETED DATE/TIME: 11/28/2019 7:00 am REASON FOR STUDY: aspiration pneumonia COMPARISON: 11/27/2019 NUMBER OF VIEWS: One view. TECHNIQUE: Single frontal radiographic image of the chest acquired. LIMITATIONS: None. FINDINGS: LUNGS AND PLEURA: Increasing airspace disease in the upper lobes. No pneumothorax. MEDIASTINUM AND HEART: Stable heart size and mediastinal structures. SUPPORT DEVICES: High position of endotracheal tube. Unchanged position nasogastric tube and right-s ided central line. BONY STRUCTURES: No acute findings. HARDWARE: None. OTHER: No other significant finding. IMPRESSION: High position of endotracheal tube. See follow-up report. No pneumothorax. Reading location - IP/workstation name: [email or web address]
[2019-11-28] MEDS ORDERED: FENTANYL CITRATE INJ/PF 100 MCG/2 ML AMPUL ONE (09:25)
[2019-11-28] MEDS: FAMOTIDINE 20 MG TABLET PO SCH ×2 (09:27→21:33)
[2019-11-28] MEDS ORDERED: FENTANYL CITRATE INJ/PF 100 MCG/2 ML AMPUL IV ONE (10:00)
[2019-11-28] MEDS: METHYLPREDNISOLONE INJ 40 MG/1 ML SDV IV SCH ×2 (10:33→21:32)
[2019-11-28 11:47] LABS: APPEARANCE,URINE SLIGHTLY-CLOUDY; BILIRUBIN,URINE NEGATIVE (NEGATIVE); COLOR,URINE AMBER; GLUCOSE, URINE NEGATIVE (NEGATIVE); KETONES,URINE NEGATIVE (NEGATIVE); LEUKOCYTE ESTERASE,URINE TRACE (NEGATIVE); NITRITE,URINE NEGATIVE (NEGATIVE); PROTEIN,URINE 30 mg/dL (NEGATIVE); URINE SPECIFIC GRAVITY 1.033
--- NOTE | 2019-11-28 21:19 | EKG REPORT ---
SEVERITY:- BORDERLINE ECG - SINUS OR ECTOPIC ATRIAL RHYTHM LOW VOLTAGE THROUGHOUT : Confirmed by: Lidya Lu 28-Nov-2019 21:18:36
[2019-11-28] MEDS: QUETIAPINE FUMARATE 25 MG TABLET PO SCH (21:35)
--- NOTE | 2019-11-28 22:13 | PDOC CRITICAL CARE PROG REPORT ---
General Date:: 11/28/19 ICU Day:: 10 Ventilator Day:: 10 Hospital Day:: 10 Resuscitation Status: Do Not Resuscitate Medical Power of Resin Painter: Mother and sister Events in the past 12 to 24 Hours:: 11.28.2019: Patient's ETT noted to be more proximal today. CXR shows mixed interstitial pattern worse from yesterday. ABG improved from yesterday and FiO2 at 50%. PEEP @ ETT advanced. Triglycerides elevated today and patient transitioned to Precedex/Fentanyl. 11.27.2019:Patient's FiO2 continues to be weaning and he is now down to 50%. Additionally, Chest x-ray continues to improve. Had significant agitation issues but gentle readjustment of medications have improved this. Review of systems relevant to events:: 11.28.2019: Patient bit through gastric tube but stayed in continuity. Triglycerides noted to be elevated and propofol was discontinued. Had lengthy discussion with sister and mother regarding his use of Seroquel. Been required because the patient is extremely sensory hyperstimulated and confirmed by medical records. He had been started on Seroquel but there was a questionable seizure on his admission. The levels were also low and bolus dosing was given to increase levels. 11.26.2019: Reduction in sedation with discontinuation of Versed today. Patient had some agitation which was controlled with propofol and fentanyl. No hypotension Reason for ICU Addmission:: Respiratory failure - Medications: Vasopressors:: none Sedation:: Propofol discontinued, now on Precedex and fentanyl Physical Exam Vital Signs: Temp Pulse Resp BP Pulse Ox 98.2 F 82 0 L 99/58 L 93 11/28/19 06:00 11/28/19 01:43 11/28/19 07:19 11/28/19 07:19 11/28/19 07:19 Intake & Output 11/27/19 11/28/19 11/29/19 06:59 06:59 06:59 Intake Total 828 624 Output Total 990 1410 Balance -167 -786 Weight 87.3 kg 87.3 kg Weight/Height Weight 87.3 kg Height 5 ft 7 in General appearance: PRESENT: no acute distress, obese, well-developed, well- nourished Exam: Intubated, ill, NAD. Eye exam: PRESENT: PERRLA. ABSENT: conjunctival injection, scleral icterus Mouth exam: PRESENT: moist, neck supple Neck exam: PRESENT: other - Right subclavian central line, clean, no erythema, intact. ABSENT: carotid bruit, JVD, lymphadenopathy, meningismus, thyromegaly Respiratory exam: PRESENT: clear to auscultation bryn, unlabored. ABSENT: accessory muscle use, rales, rhonchi, wheezes Cardiovascular exam: PRESENT: RRR, +S1, +S2. ABSENT: tachycardia Vascular exam: PRESENT: normal capillary refill. ABSENT: pallor GI/Abdominal exam: PRESENT: hyperactive bowel sounds, normal bowel sounds, soft. ABSENT: ascites, distended, guarding, mass, organolmegaly, rebound, rigid, tenderness Rectal exam: PRESENT: deferred Gentrourinary exam: PRESENT: indwelling catheter Extremities exam: PRESENT: pedal edema, +1 edema Neurological exam: PRESENT: altered - Moves to noxious stimulus Focused psych exam: PRESENT: psychomotor agitation - when stimulated, restlessness Skin exam: PRESENT: dry, intact, warm. ABSENT: cyanosis, rash Tubes/Lines: PRESENT: Endotracheal Tube, Central Line, Other - OGT, Tay Laboratory/Radiographs Laboratory Results: 11/28/19 06:44 11/28/19 11/28/19 06:44 07:24 Carbonic Acid 1.26 HCO3/H2CO3 Ratio 22:1 ABG pH 7.45 ABG pCO2 41.8 ABG pO2 88.7 ABG HCO3 28.2 H ABG O2 Saturation 97.1 ABG Base Excess 3.8 FiO2 50% Sodium 138.1 Potassium 3.2 L Chloride 102 Carbon Dioxide 33 H Anion Gap 3 L BUN 29 H Creatinine 0.59 Est GFR ( Amer) > 60 Glucose 115 H Calcium 7.1 L Phosphorus 3.1 Magnesium 2.9 H Triglycerides 483 H 11/19/19 20:35 Troponin I < 0.012 NT-Pro-B Natriuret Pep 109 Impressions: Abdomen X-Ray 11/19/19 22:02 IMPRESSION: 1. Moderate colonic fecal retention, but no small bowel distention. Abdomen/Pelvis CT 11/24/19 08:23 IMPRESSION: 1. LINEAR RADIOPAQUE DENSITY IN THE RECTUM. UNCERTAIN ETIOLOGY. THIS MAY BE RELATED TO PRIOR SURGERY OR COULD BE AN INGESTED OR INSERTED OBJECT. 2. BILATERAL PULMONARY INFILTRATES AND PLEURAL EFFUSIONS. 3. NO OTHER SIGNIFICANT OR ACUTE PROCESS IN THE ABDOMEN OR PELVIS. KUB X-Ray 11/28/19 00:00 IMPRESSION: 1. NG tube with tip and side-port in appropriate position within the stomach. EKG: Qtc 450, no acute changes All labs, radiographs, diagnostic studies and EKGs were personally reviewed: Yes In addition, reports of radiographic and diagnostic studies were read: Yes Assessment and Plan - Diagnosis (1) Acute respiratory failure with hypoxia Is this a current diagnosis for this admission?: Yes (2) Autism Is this a current diagnosis for this admission?: Yes (3) Fecal impaction Is this a current diagnosis for this admission?: Yes Plan: N (4) Pneumonia Qualifiers: Pneumonia type: aspiration pneumonia Aspiration pneumonia type: unspecified Laterality: bilateral Is this a current diagnosis for this admission?: Yes (5) Delirium due to another medical condition, acute, hyperactive Is this a current diagnosis for this admission?: Yes (6) Endotracheal tube present Is this a current diagnosis for this admission?: Yes Plan Summary: 11.28.2019: Patient's xray improved with repositioning of ETT. Will continue ventilator wean. 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 Follow triglycerides. Increase Trileptal. Replace K+ Watch for aspiration pneumonitis. Check Lipase/amylase And review the patient's medical records from the past he has had significant actions to hyperstimulation and medical settings where he does not know people. Has been difficult to sedate. We have discontinue the propofol because of the high triglycerides and have instituted Precedex. He may be one patient who will require benzodiazepine for sedation which is usually reserved for the situations. I did discuss with his mom states that he absolutely does not have a seizure history. There is some question that he may have had a seizure on this admission. Given his low Trileptal levels which have now been augmented I am concerned that his activity may be related to Seroquel withdrawal and have instituted lower dose. We will be vigilant to watch for seizure and evaluate for efficacy X-rays overall improved Critical Time Critical Time (minutes): 40 Level of Care: ICU -: 1. The care of a critical patient is a dynamic process. This note is a site safety representative synopsis but static in nature. The timeframe for treatments given in order is not necessarily the actual time these treatments may have been done. 2. This patient requires critical care secondary to ongoing requirements for therapy not offered or safe outside the critical care environment. Transfer to a lower level of care will result in altered life or limb morbidity and mortality. 3. Multidisciplinary rounds completed. 4. ABCDE bundle addressed.
[2019-11-29] MEDS: DEXMEDETOMIDINE IN 0.9 % NACL 400 MCG/100 ML RTUPB IV PRN ×4 (01:02→20:02)
[2019-11-29] MEDS: FENTANYL CITRATE/PF 600 MCG/60 ML BAG IV PRN ×6 (01:02→20:43)
[2019-11-29] MEDS: IPRATROPIUM/ALBUTEROL 0.5-2.5 MG/3 ML AMPUL NEB SCH ×4 (01:50→19:52)
[2019-11-29] MEDS ORDERED: OXCARBAZEPINE 300 MG/5 ML SUSP 250ML/BOTTLE ONE (02:11)
[2019-11-29] MEDS: OXCARBAZEPINE 300 MG/5 ML SUSP 250ML/BOTTLE NG SCH ×4 (02:46→17:33)
[2019-11-29 04:50] LABS: ARTERIAL BLOOD BASE EXCESS 2.8 mmol/L; ARTERIAL BLOOD H2CO3 1.16 mmol/L (1.05-1.35); ARTERIAL BLOOD HCO3 26.8 mmol/L (20-24); ARTERIAL BLOOD O2 SATURATION 95.9 % (94-98); ARTERIAL BLOOD PCO2 38.7 mmHg (35-45); ARTERIAL BLOOD PH 7.46 (7.35-7.45); ARTERIAL BLOOD PO2 76.2 mmHg (80-100)
[2019-11-29 04:51] LABS: ARTERIAL BLOOD FIO2 50%
[2019-11-29 05:06] LABS: BLOOD UREA NITROGEN 28 mg/dL (7-20); CALCIUM 7.4 mg/dL (8.4-10.2); GLUCOSE 154 mg/dL (75-110); PHOSPHORUS 3.6 mg/dL (2.5-4.5); POTASSIUM 3.9 mmol/L (3.6-5.0); TRIGLYCERIDES 401 mg/dL (<150)
[2019-11-29 05:11] LABS: ANION GAP 5 (5-19); CARBON DIOXIDE 30 mmol/L (22-30); CHLORIDE 105 mmol/L (98-107)
[2019-11-29] MEDS: HYDROCORTISONE SOD SUCCINATE INJ/PF 100 MG/2 ML SDV IV SCH ×3 (05:59→21:00)
[2019-11-29] MEDS: METRONIDAZOLE 500 MG/NS RTU 500 MG/100 ML RTUPB IV SCH ×3 (05:59→21:00)
[2019-11-29] MEDS: HEPARIN SOD (PORCINE) 5,000 UNIT/ML 1 ML VIAL SUBCUT SCH ×3 (05:59→21:01)
--- NOTE | 2019-11-29 08:32 | RADIOLOGY REPORT (SQ) ---
EXAM DESCRIPTION: CHEST SINGLE VIEW COMPLETED DATE/TIME: 11/29/2019 6:51 am REASON FOR STUDY: pneumonia COMPARISON: 11/28/2019 NUMBER OF VIEWS: One view. TECHNIQUE: Single frontal radiographic image of the chest acquired. LIMITATIONS: None. FINDINGS: LUNGS AND PLEURA: Diffuse airspace disease not significantly changed. No pneumothorax. MEDIASTINUM AND HEART: Stable heart size and mediastinal structures. SUPPORT DEVICES: Appropriate location without change. BONY STRUCTURES: No acute findings. HARDWARE: None. OTHER: No other significant finding. IMPRESSION: STABLE APPEARANCE OF THE CHEST. SUPPORT DEVICES UNCHANGED. Reading location - IP/workstation name: [email or web address]
[2019-11-29] MEDS: FAMOTIDINE 20 MG TABLET PO SCH ×2 (09:53→21:00)
[2019-11-29] MEDS: METHYLPREDNISOLONE INJ 40 MG/1 ML SDV IV SCH ×2 (09:53→21:00)
[2019-11-29] MEDS: QUETIAPINE FUMARATE 25 MG TABLET PO SCH ×2 (09:54→21:07)
--- NOTE | 2019-11-29 11:34 | PDOC CRITICAL CARE PROG REPORT ---
General Date:: 11/29/19 ICU Day:: 8 Ventilator Day:: 8 Hospital Day:: 9 Resuscitation Status: Do Not Resuscitate Medical Power of Publication Director: Mother and sister Events in the past 12 to 24 Hours:: Weaning trials performed Review of systems relevant to events:: Respiratory, neurological. Reason for ICU Addmission:: Respiratory failure - Medications: Medications reviewed and adjusted accordingly: Yes Vasopressors:: None. Sedation:: Precedex, fentanyl. Physical Exam Vital Signs: Temp Pulse Resp BP Pulse Ox 98.6 F 57 L 25 H 126/77 H 99 11/29/19 08:00 11/29/19 08:00 11/29/19 08:00 11/29/19 08:00 11/29/19 08:00 Intake & Output 11/28/19 11/29/19 11/30/19 06:59 06:59 06:59 Intake Total 625 921 119 Output Total 1410 535 10 Balance -785 386 109 Weight 87.3 kg 87.6 kg Weight/Height Weight 87.6 kg Height 5 ft 7 in General appearance: PRESENT: disheveled, other - Sedated. Head exam: PRESENT: atraumatic, normocephalic Eye exam: PRESENT: conjunctiva pink, EOMI, PERRLA. ABSENT: scleral icterus Ear exam: PRESENT: normal external ear exam Mouth exam: PRESENT: dry mucosa Respiratory exam: PRESENT: clear to auscultation bryn, decreased breath sounds. ABSENT: rales, rhonchi, wheezes Cardiovascular exam: PRESENT: RRR. ABSENT: diastolic murmur, rubs, systolic murmur GI/Abdominal exam: PRESENT: normal bowel sounds, soft. ABSENT: distended, guarding, mass, organolmegaly, rebound, tenderness Rectal exam: PRESENT: deferred Gentrourinary exam: PRESENT: indwelling catheter Extremities exam: PRESENT: full ROM. ABSENT: calf tenderness, clubbing, pedal edema Musculoskeletal exam: PRESENT: normal inspection Neurological exam: PRESENT: altered, other - Sedated Psychiatric exam: PRESENT: agitated Skin exam: PRESENT: dry, intact, warm. ABSENT: cyanosis, rash Laboratory/Radiographs Laboratory Results: 11/28/19 06:44 11/29/19 04:36 11/28/19 11/29/19 11/29/19 11:36 04:36 04:36 Carbonic Acid 1.16 HCO3/H2CO3 Ratio 23:1 ABG pH 7.46 H ABG pCO2 38.7 ABG pO2 76.2 L ABG HCO3 26.8 H ABG O2 Saturation 95.9 ABG Base Excess 2.8 FiO2 50% Sodium 139.9 Potassium 3.9 Chloride 105 Carbon Dioxide 30 Anion Gap 5 BUN 28 H Creatinine 0.64 Est GFR ( Amer) > 60 Glucose 154 H Calcium 7.4 L Phosphorus 3.6 Magnesium 2.8 H Triglycerides 401 H Urine Color WALTER Urine Appearance SLIGHTLY-CLOUDY Urine pH 6.0 Ur Specific Horace 1.033 Urine Protein 30 H Urine Glucose (UA) NEGATIVE Urine Ketones NEGATIVE Urine Blood NEGATIVE Urine Nitrite NEGATIVE Ur Leukocyte Esterase TRACE H Urine WBC (Auto) 2 Urine RBC (Auto) 41 11/19/19 20:35 Troponin I < 0.012 NT-Pro-B Natriuret Pep 109 Impressions: Abdomen X-Ray 11/19/19 22:02 IMPRESSION: 1. Moderate colonic fecal retention, but no small bowel distention. Abdomen/Pelvis CT 11/24/19 08:23 IMPRESSION: 1. LINEAR RADIOPAQUE DENSITY IN THE RECTUM. UNCERTAIN ETIOLOGY. THIS MAY BE RELATED TO PRIOR SURGERY OR COULD BE AN INGESTED OR INSERTED OBJECT. 2. BILATERAL PULMONARY INFILTRATES AND PLEURAL EFFUSIONS. 3. NO OTHER SIGNIFICANT OR ACUTE PROCESS IN THE ABDOMEN OR PELVIS. KUB X-Ray 11/28/19 00:00 IMPRESSION: 1. NG tube with tip and side-port in appropriate position within the stomach. Chest X-Ray 11/29/19 06:00 IMPRESSION: STABLE APPEARANCE OF THE CHEST. SUPPORT DEVICES UNCHANGED. All labs, radiographs, diagnostic studies and EKGs were personally reviewed: Yes In addition, reports of radiographic and diagnostic studies were read: Yes Assessment and Plan - Diagnosis (1) Autism Is this a current diagnosis for this admission?: Yes Plan: This is making his understanding of his condition difficult. We will likely need to extubate without much time off sedation. (2) Endotracheal tube present Is this a current diagnosis for this admission?: Yes Plan: He is still intubated and although his numbers for extubation are good, he has a fair amount of secretions that will limit extubation. His mother will also be available in AM to help calm him. (3) Hypocalcemia Is this a current diagnosis for this admission?: Yes Plan: Total calcium is low and will check ionized (4) Acute respiratory failure with hypoxia Is this a current diagnosis for this admission?: Yes Plan: He was hypoxic at the time of extubation. Now improved. Plan Summary: When his thick secretions are down we will need to extubate quickly. Critical Time Critical Time (minutes): 35 Level of Care: ICU Anticipated discharge: SNF Within: Other - Too soon to tell. -: 1. The care of a critical patient is a dynamic process. This note is a senior outside sales representative synopsis but static in nature. The timeframe for treatments given in order is not necessarily the actual time these treatments may have been done. 2. This patient requires critical care secondary to ongoing requirements for therapy not offered or safe outside the critical care environment. Transfer to a lower level of care will result in altered life or limb morbidity and mortality. 3. Multidisciplinary rounds completed. 4. ABCDE bundle addressed.
[2019-11-29] MEDS ORDERED: NORMAL SALINE 1000 ML 1,000 ML IV ONE (18:15)
[2019-11-29] MEDS ORDERED: MIDAZOLAM 2 MG/2 ML INJ ONE (23:07)
[2019-11-29] MEDS ORDERED: VECURONIUM BROMIDE INJ 10 MG VIAL IV ONE (23:07)
[2019-11-30] MEDS ORDERED: IPRATROPIUM/ALBUTEROL 0.5-2.5 MG/3 ML AMPUL NEB ONE (00:30)
--- NOTE | 2019-11-30 00:42 | Progress Note ---
Provider Note Provider Note: Date/Time of encounter: 11/29/2019 22:15 pm Notified by RN that patient had a cuff leak following an episode of agitation. Audible leak heard in the room with smaller volumes returned on ventilator with evidence patient was obviously breathing through nose/mouth around ETT. Prepared for reintubation but patient noted to have fairly decent pulmonary mechanics. NT suction performed to clear airway with success. Decision made to extubate patient and give a stat duo-neb treatment, followed by NRB mask while also re suming Precedex infusion for anxiety/agitation. RR 20, no distress, mild expiratory work of breathing following the episode of agitation but improving as he is left alone. OGT also removed. It was confirmed by myself that patient bit through both the OG tube as well as ETT commercial helicopter pilot balloon tubing as evidenced by the same location as they were taped to one another and a bubble test submerged in water with instillation of air which isolated the leak. Attempted heated high flow nasal cannula therapy, however, patient remained hypoxic on 100% 60 LPM so the decision was made to place on BIPAP. Patient tolerating well, unlabored, RR 20 Vt 550-600 with SPO2 94% on 100% /. Will obtain ABG after BIPAP therapy x1 hour. Will also obtain a routine CXR. Will monitor for distress and hypoxia necessitating the need for reintubation. If reintubated, will consider bronchoscopy to determine if aspirated tube feeds. Total Critical Care Time assessing and reassessing patient with different modalities: 40 minutes
[2019-11-30 01:50] LABS: ARTERIAL BLOOD BASE EXCESS 1.8 mmol/L; ARTERIAL BLOOD HCO3 24.9 mmol/L (20-24); ARTERIAL BLOOD O2 SATURATION 98.4 % (94-98); ARTERIAL BLOOD PCO2 33.3 mmHg (35-45); ARTERIAL BLOOD PH 7.49 (7.35-7.45); ARTERIAL BLOOD TOTAL CO2 25.9 mmol/L (23-27)
[2019-11-30 01:53] LABS: ARTERIAL BLOOD FIO2 100%
[2019-11-30] MEDS: DEXMEDETOMIDINE IN 0.9 % NACL 400 MCG/100 ML RTUPB IV PRN ×3 (02:11→22:15)
[2019-11-30] MEDS: OXCARBAZEPINE 300 MG/5 ML SUSP 250ML/BOTTLE NG SCH ×3 (02:12→17:01)
[2019-11-30] MEDS: IPRATROPIUM/ALBUTEROL 0.5-2.5 MG/3 ML AMPUL NEB SCH ×4 (02:29→20:36)
[2019-11-30 04:34] LABS: HEMATOCRIT 26.8 % (37.9-51.0); MEAN CORPUSCULAR HEMOGLOBIN 29.7 pg (27.0-33.4); MEAN CORPUSCULAR HGB CONC 33.5 g/dL (32.0-36.0); MEAN CORPUSCULAR VOLUME 89 fl (80-97); PLATELET COUNT 370 10^3/uL (150-450); RED BLOOD COUNT 3.02 10^6/uL (4.35-5.55); RED CELL DISTRIBUTION WIDTH 14.2 % (11.5-14.0); WHITE BLOOD COUNT 14.5 10^3/uL (4.0-10.5)
[2019-11-30 04:49] LABS: BLOOD UREA NITROGEN 27 mg/dL (7-20); CALCIUM 7.4 mg/dL (8.4-10.2); GLUCOSE 128 mg/dL (75-110); POTASSIUM 3.5 mmol/L (3.6-5.0)
[2019-11-30 04:55] LABS: CARBON DIOXIDE 32 mmol/L (22-30); CHLORIDE 105 mmol/L (98-107)
[2019-11-30 04:56] LABS: ANION GAP 1 (5-19)
[2019-11-30] MEDS: HYDROCORTISONE SOD SUCCINATE INJ/PF 100 MG/2 ML SDV IV SCH ×2 (05:02→17:03)
[2019-11-30] MEDS: HEPARIN SOD (PORCINE) 5,000 UNIT/ML 1 ML VIAL SUBCUT SCH ×3 (05:02→21:10)
[2019-11-30] MEDS: METRONIDAZOLE 500 MG/NS RTU 500 MG/100 ML RTUPB IV SCH ×3 (05:02→21:10)
[2019-11-30 05:03] LABS: ABSOLUTE LYMPHOCYTES# (MANUAL) 1.7 10^3/uL (0.5-4.7); ABSOLUTE MONOCYTES # (MANUAL) 1.3 10^3/uL (0.1-1.4); BAND NEUTROPHILS % (MANUAL) 3 % (3-5); BASOPHILS % (MANUAL) 0 % (0-2); EOSINOPHILS % (MANUAL) 0 % (0-6); LYMPHOCYTES % (MANUAL) 12 % (13-45); MONOCYTES % (MANUAL) 9 % (3-13); SEGMENTED NEUTROPHILS % (MAN) 76 % (42-78); TOTAL CELLS COUNTED 100
[2019-11-30] MEDS: NORMAL SALINE INJ/PF 0.9% 10 ML SDV IV PRN (05:03)
[2019-11-30 05:04] LABS: PLATELET COMMENT ADEQUATE; RBC MORPHOLOGY COMMENT NORMO-CYTIC/CHROMIC
[2019-11-30] MEDS ORDERED: POTASSI CL 20 MEQ/50 ML RIDER 20 MEQ/50 ML RTUPB IV ONE (05:47)
[2019-11-30] MEDS: POTASSI CL 20 MEQ/50 ML RIDER 20 MEQ/50 ML RTUPB IV SCH ×2 (06:23→09:47)
--- NOTE | 2019-11-30 09:23 | RADIOLOGY REPORT (SQ) ---
EXAM DESCRIPTION: CHEST SINGLE VIEW COMPLETED DATE/TIME: 11/30/2019 7:50 am REASON FOR STUDY: f/u resp failure; concern for aspiration COMPARISON: 11/29/2019 EXAM PARAMETERS: NUMBER OF VIEWS: One view. TECHNIQUE: Single frontal radiographic view of the chest acquired. RADIATION DOSE: NA LIMITATIONS: None. FINDINGS: LUNGS AND PLEURA: Marked progression of disease with diffuse parenchymal opacities through out both lungs. Right greater than left. No effusions. MEDIASTINUM AND HILAR STRUCTURES: No masses. Contour normal. HEART AND VASCULAR STRUCTURES: Heart normal in size. Normal vasculature. BONES: No acute findings. HARDWARE: Support devices removed. OTHER: No other significant finding. IMPRESSION: Marked progression of disease with diffuse parenchymal opacities throughout both lungs. TECHNICAL DOCUMENTATION: JOB ID: [id number] [employer]- All Rights Reserved Reading location - IP/workstation name: [email or web address]
[2019-11-30] MEDS ORDERED: CALCIUM GLUCONATE 1000 MG/10 ML INJ IV ONE (09:31)
--- NOTE | 2019-11-30 09:31 | PDOC CRITICAL CARE PROG REPORT ---
General Date:: 11/30/19 ICU Day:: 9 Hospital Day:: 10 Resuscitation Status: Do Not Resuscitate Medical Power of Tubing Mill Operator: Mother and sister Events in the past 12 to 24 Hours:: Bit through regional airline pilot balloon and extubated. Review of systems relevant to events:: Respiratory, neurological Reason for ICU Addmission:: Respiratory failure, intubation. - Medications: Medications reviewed and adjusted accordingly: Yes Vasopressors:: None Sedation:: Precedex Physical Exam Vital Signs: Temp Pulse Resp BP Pulse Ox 97.7 F 52 L 30 H 133/84 H 98 11/30/19 08:00 11/30/19 08:00 11/30/19 08:00 11/30/19 08:00 11/30/19 08:00 Intake & Output 11/29/19 11/30/19 12/01/19 06:59 06:59 06:59 Intake Total 1021 1745 Output Total 535 1345 75 Balance 486 400 -75 Weight 87.6 kg 92.9 kg Weight/Height Weight 92.9 kg Height 5 ft 7 in General appearance: PRESENT: no acute distress, disheveled Head exam: PRESENT: atraumatic, normocephalic Eye exam: PRESENT: conjunctiva pink, EOMI, PERRLA. ABSENT: scleral icterus Ear exam: PRESENT: normal external ear exam Mouth exam: PRESENT: moist, tongue midline Respiratory exam: PRESENT: crackles, rhonchi, tachypnea, unlabored Cardiovascular exam: PRESENT: bradycardia Vascular exam: PRESENT: normal capillary refill GI/Abdominal exam: PRESENT: normal bowel sounds, soft. ABSENT: distended, guarding, mass, organolmegaly, rebound, tenderness Rectal exam: PRESENT: deferred Gentrourinary exam: PRESENT: indwelling catheter Extremities exam: PRESENT: full ROM. ABSENT: calf tenderness, clubbing, pedal edema Musculoskeletal exam: PRESENT: normal inspection Neurological exam: PRESENT: altered, other - Baseline autism Psychiatric exam: PRESENT: agitated Skin exam: PRESENT: dry, intact, warm. ABSENT: cyanosis, rash Laboratory/Radiographs Laboratory Results: 11/30/19 04:01 11/30/19 04:01 11/30/19 11/30/19 11/30/19 01:36 04:01 04:01 WBC 14.5 H RBC 3.02 L Hgb 9.0 L Hct 26.8 L MCV 89 MCH 29.7 MCHC 33.5 RDW 14.2 H Plt Count 370 Seg Neutrophils % Not Reportable Carbonic Acid 1.00 L HCO3/H2CO3 Ratio 24:1 ABG pH 7.49 H ABG pCO2 33.3 L ABG pO2 110.0 H ABG HCO3 24.9 H ABG O2 Saturation 98.4 H ABG Base Excess 1.8 FiO2 100% Sodium 137.8 Potassium 3.5 L Chloride 105 Carbon Dioxide 32 H Anion Gap 1 L BUN 27 H Creatinine 0.57 Est GFR ( Amer) > 60 Glucose 128 H Calcium 7.4 L 11/19/19 20:35 Troponin I < 0.012 NT-Pro-B Natriuret Pep 109 Impressions: Abdomen X-Ray 11/19/19 22:02 IMPRESSION: 1. Moderate colonic fecal retention, but no small bowel distention. Abdomen/Pelvis CT 11/24/19 08:23 IMPRESSION: 1. LINEAR RADIOPAQUE DENSITY IN THE RECTUM. UNCERTAIN ETIOLOGY. THIS MAY BE RELATED TO PRIOR SURGERY OR COULD BE AN INGESTED OR INSERTED OBJECT. 2. BILATERAL PULMONARY INFILTRATES AND PLEURAL EFFUSIONS. 3. NO OTHER SIGNIFICANT OR ACUTE PROCESS IN THE ABDOMEN OR PELVIS. KUB X-Ray 11/28/19 00:00 IMPRESSION: 1. NG tube with tip and side-port in appropriate position within the stomach. All labs, radiographs, diagnostic studies and EKGs were personally reviewed: Yes In addition, reports of radiographic and diagnostic studies were read: Yes Assessment and Plan - Diagnosis (1) Autism Is this a current diagnosis for this admission?: Yes Plan: This has made it difficult to care for him. He is agitated at times and we would like to hold all sedation. (2) Endotracheal tube present Is this a current diagnosis for this admission?: Yes Plan: He bit through the regional airline pilot balloon rendering the ETT useless, therefore extubated. (3) Hypocalcemia Is this a current diagnosis for this admission?: Yes Plan: Will replace with 2gms calcium. (4) Acute respiratory failure with hypoxia Is this a current diagnosis for this admission?: Yes Plan: He is no longer intubated but still needs bipap. Plan Summary: Will try not to sedate, replace calcium. Needs an ICU level of care still. Critical Time Critical Time (minutes): 40 Level of Care: ICU Anticipated discharge: Home Within: Other - Too soon to tell. -: 1. The care of a critical patient is a dynamic process. This note is a accounting representative synopsis but static in nature. The timeframe for treatments given in order is not necessarily the actual time these treatments may have been done. 2. This patient requires critical care secondary to ongoing requirements for therapy not offered or safe outside the critical care environment. Transfer to a lower level of care will result in altered life or limb morbidity and m ortality. 3. Multidisciplinary rounds completed. 4. ABCDE bundle addressed.
[2019-11-30] MEDS: FAMOTIDINE 20 MG TABLET PO SCH ×2 (09:47→21:09)
[2019-11-30] MEDS: QUETIAPINE FUMARATE 25 MG TABLET PO SCH ×2 (09:47→21:10)
[2019-11-30] MEDS: CALCIUM GLUCONATE 1 GM/NS 50 ML RTU IV SCH ×2 (09:48→15:27)
[2019-11-30] MEDS ORDERED: CALCIUM GLUC IN NACL, ISO-OSM 1 GM/50 ML RTUPB IV ONE (15:26)
[2019-12-01] MEDS ORDERED: MIDAZOLAM 2 MG/2 ML INJ IV ONE (01:14)
[2019-12-01] MEDS: QUETIAPINE FUMARATE 25 MG TABLET PO SCH ×3 (01:56→22:09)
[2019-12-01] MEDS: OXCARBAZEPINE 300 MG/5 ML SUSP 250ML/BOTTLE NG SCH ×3 (01:57→17:22)
[2019-12-01] MEDS: DEXMEDETOMIDINE IN 0.9 % NACL 400 MCG/100 ML RTUPB IV PRN ×8 (01:57→22:10)
--- NOTE | 2019-12-01 02:27 | RADIOLOGY REPORT (SQ) ---
CLINICAL HISTORY: Check Placement of NG Tube COMPARISON: 220 20. TECHNIQUE: XR ABDOMEN 1 VIEW (KUB) 12/01/2019 1:52 AM ASW/[facility] TACTICAL AIR CONTROLLER FINDINGS: Bowel gas pattern is nonspecific. There are no abnormal radiopaque foreign bodies or abnormal calcifications. Osseous structures are grossly unremarkable. NG tube tip is in the stomach. There is airspace disease throughout both lungs. IMPRESSION: NG tube tip in the stomach.
[2019-12-01] MEDS: IPRATROPIUM/ALBUTEROL 0.5-2.5 MG/3 ML AMPUL NEB SCH ×4 (02:32→20:42)
[2019-12-01] MEDS ORDERED: HALOPERIDOL LACTATE INJ 5 MG/1 ML VIAL IV ONE (03:15)
[2019-12-01 03:42] LABS: HEMOGLOBIN 8.9 g/dL (13.5-17.0); MEAN CORPUSCULAR HGB CONC 34.2 g/dL (32.0-36.0); MEAN CORPUSCULAR VOLUME 88 fl (80-97); PLATELET COUNT 374 10^3/uL (150-450); RED BLOOD COUNT 2.96 10^6/uL (4.35-5.55); RED CELL DISTRIBUTION WIDTH 14.5 % (11.5-14.0); WHITE BLOOD COUNT 12.6 10^3/uL (4.0-10.5)
[2019-12-01 04:00] LABS: BLOOD UREA NITROGEN 28 mg/dL (7-20); CALCIUM 7.7 mg/dL (8.4-10.2); CARBON DIOXIDE 28 mmol/L (22-30); CHLORIDE 109 mmol/L (98-107); GLUCOSE 113 mg/dL (75-110); PHOSPHORUS 2.5 mg/dL (2.5-4.5)
[2019-12-01 04:01] LABS: ANION GAP 5 (5-19)
[2019-12-01 04:03] LABS: ABSOLUTE LYMPHOCYTES# (MANUAL) 1.4 10^3/uL (0.5-4.7); ABSOLUTE MONOCYTES # (MANUAL) 1.4 10^3/uL (0.1-1.4); ANISOCYTOSIS SLIGHT; BAND NEUTROPHILS % (MANUAL) 3 % (3-5); BASOPHILS % (MANUAL) 0 % (0-2); EOSINOPHILS % (MANUAL) 0 % (0-6); LYMPHOCYTES % (MANUAL) 11 % (13-45); MONOCYTES % (MANUAL) 11 % (3-13); SEGMENTED NEUTROPHILS % (MAN) 75 % (42-78); TOTAL CELLS COUNTED 100
[2019-12-01 04:04] LABS: PLATELET COMMENT ADEQUATE
[2019-12-01] MEDS ORDERED: ZIPRASIDONE MESYLATE INJ/PF 20 MG SDV IM ONE (04:30)
[2019-12-01] MEDS: HEPARIN SOD (PORCINE) 5,000 UNIT/ML 1 ML VIAL SUBCUT SCH ×3 (05:05→22:09)
[2019-12-01] MEDS: METRONIDAZOLE 500 MG/NS RTU 500 MG/100 ML RTUPB IV SCH (05:05)
[2019-12-01] MEDS: HYDROCORTISONE SOD SUCCINATE INJ/PF 100 MG/2 ML SDV IV SCH ×2 (05:05→17:22)
[2019-12-01] MEDS: POTASSIUM CHLORIDE 20 MEQ PACKET NG SCH ×2 (05:05→13:47)
[2019-12-01] MEDS: NORMAL SALINE INJ/PF 0.9% 10 ML SDV IV PRN ×2 (05:06→22:09)
--- NOTE | 2019-12-01 09:05 | PDOC CRITICAL CARE PROG REPORT ---
General Date:: 12/01/19 ICU Day:: 9 Hospital Day:: 11 Resuscitation Status: Do Not Resuscitate Medical Power of Board Winder: Mother and sister Events in the past 12 to 24 Hours:: Extubated, NG placed back on meds. Review of systems relevant to events:: Respiratory, neurological. Reason for ICU Addmission:: Respiratory failure, intubation. - Medications: Medications reviewed and adjusted accordingly: Yes Vasopressors:: None Sedation:: None Physical Exam Vital Signs: Temp Pulse Resp BP Pulse Ox 98.2 F 60 30 H 135/80 H 98 12/01/19 08:00 12/01/19 08:00 12/01/19 08:00 12/01/19 08:00 12/01/19 08:00 Intake & Output 11/30/19 12/01/19 12/02/19 06:59 06:59 06:59 Intake Total 1745 738 100 Output Total 1345 935 30 Balance 400 -197 70 Weight 92.9 kg 93 kg Weight/Height Weight 93 kg Height 5 ft 7 in General appearance: PRESENT: no acute distress, disheveled Head exam: PRESENT: atraumatic, normocephalic Eye exam: PRESENT: conjunctiva pink, EOMI, PERRLA. ABSENT: scleral icterus Ear exam: PRESENT: normal external ear exam Mouth exam: PRESENT: moist, tongue midline Respiratory exam: PRESENT: clear to auscultation bryn, crackles, decreased breath sounds, rhonchi. ABSENT: rales, wheezes Cardiovascular exam: PRESENT: bradycardia Vascular exam: PRESENT: normal capillary refill GI/Abdominal exam: PRESENT: normal bowel sounds, soft. ABSENT: distended, guarding, mass, organolmegaly, rebound, tenderness Rectal exam: PRESENT: deferred Gentrourinary exam: PRESENT: indwelling catheter Extremities exam: PRESENT: full ROM. ABSENT: calf tenderness, clubbing, pedal edema Musculoskeletal exam: PRESENT: normal inspection Neurological exam: PRESENT: altered, CN II-XII grossly intact Psychiatric exam: PRESENT: agitated Skin exam: PRESENT: dry, intact, warm. ABSENT: cyanosis, rash Laboratory/Radiographs Laboratory Results: 12/01/19 03:22 12/01/19 03:22 12/01/19 12/01/19 03:22 03:22 WBC 12.6 H RBC 2.96 L Hgb 8.9 L Hct 26.0 L MCV 88 MCH 30.0 MCHC 34.2 RDW 14.5 H Plt Count 374 Seg Neutrophils % Not Reportable Sodium 141.4 Potassium 3.0 L* Chloride 109 H Carbon Dioxide 28 Anion Gap 5 BUN 28 H Creatinine 0.60 Est GFR ( Amer) > 60 Glucose 113 H Calcium 7.7 L Phosphorus 2.5 Magnesium 2.3 11/19/19 20:35 Troponin I < 0.012 NT-Pro-B Natriuret Pep 109 Impressions: Abdomen X-Ray 11/19/19 22:02 IMPRESSION: 1. Moderate colonic fecal retention, but no small bowel distention. Abdomen/Pelvis CT 11/24/19 08:23 IMPRESSION: 1. LINEAR RADIOPAQUE DENSITY IN THE RECTUM. UNCERTAIN ETIOLOGY. THIS MAY BE RELATED TO PRIOR SURGERY OR COULD BE AN INGESTED OR INSERTED OBJECT. 2. BILATERAL PULMONARY INFILTRATES AND PLEURAL EFFUSIONS. 3. NO OTHER SIGNIFICANT OR ACUTE PROCESS IN THE ABDOMEN OR PELVIS. KUB X-Ray 12/01/19 01:52 IMPRESSION: NG tube tip in the stomach. All labs, radiographs, diagnostic studies and EKGs were personally reviewed: Yes In addition, reports of radiographic and diagnostic studies were read: Yes Assessment and Plan - Diagnosis (1) Autism Is this a current diagnosis for this admission?: Yes Plan: Chronic, back on usual medications now that NG is in. (2) Endotracheal tube present Is this a current diagnosis for this admission?: Yes Plan: He is now extubated. CXR is slightly better. (3) Hypocalcemia Is this a current diagnosis for this admission?: Yes Plan: Willl check an ionized calcium. Albumin 2.2. (4) Acute respiratory failure with hypoxia Is this a current diagnosis for this admission?: Yes Plan: Still requires bipap. (5) Hypokalemia Is this a current diagnosis for this admission?: Yes Plan: Level 3.0, replace with PO supplements. Plan Summary: Still needs the ICU as he is a respratory risk and cannot tell us if he is in trouble. Keep in ICU as long as he needs bipap. Critical Time Critical Time (minutes): 40 Level of Care: ICU Anticipated discharge: Other Within: Other - Too soon to tell. -: 1. The care of a critical patient is a dynamic process. This note is a cash posting representative synopsis but static in nature. The timeframe for treatments given in order is not necessarily the actual time these treatments may have been done. 2. This patient requires critical care secondary to ongoing requirements for therapy not offered or safe outside the critical care environment. Transfer to a lower level of care will result in altered life or limb morbidity and mortality. 3. Multidisciplinary rounds completed. 4. ABCDE bundle addressed.
[2019-12-01] MEDS: FAMOTIDINE 20 MG TABLET PO SCH ×2 (10:13→22:09)
[2019-12-01 14:16] LABS: ARTERIAL BLOOD BASE EXCESS 2.9 mmol/L; ARTERIAL BLOOD H2CO3 1.02 mmol/L (1.05-1.35); ARTERIAL BLOOD O2 SATURATION 80.6 % (94-98)
[2019-12-01 14:18] LABS: ARTERIAL BLOOD PO2 40.2 mmHg (80-100)
--- NOTE | 2019-12-02 00:58 | RADIOLOGY REPORT (SQ) ---
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 Comparison: Chest radiograph performed 11/30/2019. Findings: The cardiomediastinal silhouette is enlarged. No pneumothorax is seen. No discrete pleural effusion is apparent. There are patchy bilateral airspace opacities again noted. These appear similar to prior imaging. The nasogastric tube traverses below the left hemidiaphragm. The tip is not seen on this examination. A right subclavian central line catheter tip projects near the SVC/right atrial junction. Impression: There are similar bilateral airspace opacities. The cardiomediastinal silhouette is enlarged.
[2019-12-02] MEDS: DEXMEDETOMIDINE IN 0.9 % NACL 400 MCG/100 ML RTUPB IV PRN ×9 (01:05→23:27)
[2019-12-02] MEDS: OXCARBAZEPINE 300 MG/5 ML SUSP 250ML/BOTTLE NG SCH ×3 (01:06→18:02)
[2019-12-02] MEDS: IPRATROPIUM/ALBUTEROL 0.5-2.5 MG/3 ML AMPUL NEB SCH ×4 (01:58→19:43)
[2019-12-02 05:34] LABS: ANION GAP 5 (5-19); BLOOD UREA NITROGEN 26 mg/dL (7-20); CALCIUM 7.5 mg/dL (8.4-10.2); CARBON DIOXIDE 28 mmol/L (22-30); CHLORIDE 108 mmol/L (98-107); GLUCOSE 149 mg/dL (75-110); POTASSIUM 3.2 mmol/L (3.6-5.0)
[2019-12-02] MEDS: HYDROCORTISONE SOD SUCCINATE INJ/PF 100 MG/2 ML SDV IV SCH ×2 (05:51→18:02)
[2019-12-02] MEDS: HEPARIN SOD (PORCINE) 5,000 UNIT/ML 1 ML VIAL SUBCUT SCH ×3 (05:51→21:24)
[2019-12-02] MEDS ORDERED: FUROSEMIDE INJ/PF 40 MG/4 ML SDV IV ONE (08:22)
--- NOTE | 2019-12-02 08:22 | PDOC CRITICAL CARE PROG REPORT ---
General Date:: 12/02/19 ICU Day:: 11 Hospital Day:: 12 Resuscitation Status: Do Not Resuscitate Medical Power of Blood Bank Technician: Mother and sister Events in the past 12 to 24 Hours:: CXR has more diffuse disease but clinically doing better. Review of systems relevant to events:: Respiratory, neurological. Reason for ICU Addmission:: Respiratory failure, risk of reintubation and mental status. - Medications: Medications reviewed and adjusted accordingly: Yes Vasopressors:: None Sedation:: None. Physical Exam Vital Signs: Temp Pulse Resp BP Pulse Ox 98.1 F 57 L 28 H 139/77 H 95 12/02/19 05:23 12/02/19 01:59 12/02/19 06:00 12/02/19 05:54 12/02/19 06:00 Intake & Output 12/01/19 12/02/19 12/03/19 06:59 06:59 06:59 Intake Total 738 2565 Output Total 935 1030 Balance -197 1535 Weight 93 kg 95.6 kg Weight/Height Weight 95.6 kg Height 5 ft 7 in General appearance: PRESENT: no acute distress, disheveled Head exam: PRESENT: atraumatic, normocephalic Eye exam: PRESENT: conjunctiva pink, EOMI, PERRLA. ABSENT: scleral icterus Ear exam: PRESENT: normal external ear exam Mouth exam: PRESENT: moist, tongue midline Respiratory exam: PRESENT: rhonchi, tachypnea, unlabored Cardiovascular exam: PRESENT: bradycardia, RRR. ABSENT: diastolic murmur, rubs, systolic murmur GI/Abdominal exam: PRESENT: normal bowel sounds, soft. ABSENT: distended, guarding, mass, organolmegaly, rebound, tenderness Rectal exam: PRESENT: deferred Gentrourinary exam: PRESENT: indwelling catheter Extremities exam: PRESENT: +2 edema Musculoskeletal exam: PRESENT: normal inspection Neurological exam: PRESENT: alert, altered, awake Skin exam: PRESENT: dry, intact, warm. ABSENT: cyanosis, rash Laboratory/Radiographs Laboratory Results: 12/01/19 03:22 12/02/19 04:14 12/01/19 12/02/19 14:05 04:14 Carbonic Acid 1.02 L HCO3/H2CO3 Ratio 25:1 ABG pH 7.50 H ABG pCO2 34.0 L ABG pO2 40.2 L* ABG HCO3 26.0 H ABG O2 Saturation 80.6 L ABG Base Excess 2.9 FiO2 72% Sodium 141.4 Potassium 3.2 L Chloride 108 H Carbon Dioxide 28 Anion Gap 5 BUN 26 H Creatinine 0.50 L Est GFR ( Amer) > 60 Glucose 149 H Calcium 7.5 L 11/19/19 20:35 Troponin I < 0.012 NT-Pro-B Natriuret Pep 109 Impressions: Abdomen X-Ray 11/19/19 22:02 IMPRESSION: 1. Moderate colonic fecal retention, but no small bowel distention. Abdomen/Pelvis CT 11/24/19 08:23 IMPRESSION: 1. LINEAR RADIOPAQUE DENSITY IN THE RECTUM. UNCERTAIN ETIOLOGY. THIS MAY BE RELATED TO PRIOR SURGERY OR COULD BE AN INGESTED OR INSERTED OBJECT. 2. BILATERAL PULMONARY INFILTRATES AND PLEURAL EFFUSIONS. 3. NO OTHER SIGNIFICANT OR ACUTE PROCESS IN THE ABDOMEN OR PELVIS. KUB X-Ray 12/01/19 01:52 IMPRESSION: NG tube tip in the stomach. All labs, radiographs, diagnostic studies and EKGs were personally reviewed: Yes In addition, reports of radiographic and diagnostic studies were read: Yes Assessment and Plan - Diagnosis (1) Autism Is this a current diagnosis for this admission?: Yes Plan: Right now under control. (2) Endotracheal tube present Is this a current diagnosis for this admission?: Yes Plan: Resolved. (3) Hypocalcemia Is this a current diagnosis for this admission?: Yes Plan: Need to check an ionized calcium. (4) Acute respiratory failure with hypoxia Is this a current diagnosis for this admission?: Yes Plan: He is on high flow and doing alright. His CXR has more diffuse disease. He is anasarcic and will give lasix to try and diurese. (5) Hypokalemia Is this a current diagnosis for this admission?: Yes Plan: Higher but still needs replacement especially with lasix. Plan Summary: Keep in ICU due to risk of reintubation and autism. Critical Time Critical Time (minutes): 35 Level of Care: ICU Anticipated discharge: Home Within: Other - Too soon to tell. -: 1. The care of a critical patient is a dynamic process. This note is a petroleum products sales representative synopsis but static in nature. The timeframe for treatments given in order is not necessarily the actual time these treatments may have been done. 2. This patient requires critical care secondary to ongoing requirements for therapy not offered or safe outside the critical care environment. Transfer to a lower level of care will result in altered life or limb morbidity and mortality. 3. Multidisciplinary rounds completed. 4. ABCDE bundle addressed.
--- NOTE | 2019-12-02 08:33 | RADIOLOGY REPORT (SQ) ---
EXAM DESCRIPTION: CHEST SINGLE VIEW COMPLETED DATE/TIME: 12/02/2019 6:40 am REASON FOR STUDY: r/o worsening infiltrate COMPARISON: AP view of the chest from 12/01/2019. EXAM PARAMETERS: NUMBER OF VIEWS: One view. TECHNIQUE: An AP view of the chest was obtained. RADIATION DOSE: NA LIMITATIONS: None. FINDINGS: LUNGS AND PLEURA: Increased patchy bilateral and asymmetric parenchymal opacities. The co stophrenic sulci are blunted. The contour of the left hemidiaphragm is indistinct. There is no pneu mothorax. MEDIASTINUM AND HILAR STRUCTURES: Stable mediastinal and hilar contours. HEART AND VASCULAR STRUCTURES: Stable cardiac silhouette. The pulmonary vasculature is obscured. BONES: No acute findings. HARDWARE: The tip of the right subclavian central venous catheter projects at the level of the cavoat rial junction. The tip of the enteric tube projects within the gastric antrum. OTHER: No other finding. IMPRESSION: Increased patchy bilateral and asymmetric parenchymal opacities. TECHNICAL DOCUMENTATION: JOB ID: [id number] 2010 [employer]- All Rights Reserved Reading location - IP/workstation name: [email or web address]
[2019-12-02] MEDS: FAMOTIDINE 20 MG TABLET PO SCH ×2 (09:36→21:25)
[2019-12-02] MEDS: QUETIAPINE FUMARATE 25 MG TABLET PO SCH ×2 (09:36→21:24)
[2019-12-02] MEDS ORDERED: POTASSIUM CHLORIDE 10 MEQ TABLET.ER PO SCH (10:00)
[2019-12-02] MEDS: POTASSIUM CHLORIDE 20 MEQ PACKET NG SCH (11:04)
[2019-12-02] MEDS: GUAIFENESIN SYRP 200 MG/10 ML UDC PO PRN (21:24)
[2019-12-03] MEDS ORDERED: SODIUM CHLORIDE 3% FOR INHALATION 15 ML AMPUL NEB ONE (00:06)
[2019-12-03] MEDS: SODIUM CHLORIDE 3% FOR INHALATION 15 ML AMPUL NEB SCH ×2 (00:08→01:57)
[2019-12-03] MEDS: IPRATROPIUM/ALBUTEROL 0.5-2.5 MG/3 ML AMPUL NEB SCH ×2 (01:57→08:17)
[2019-12-03] MEDS: DEXMEDETOMIDINE IN 0.9 % NACL 400 MCG/100 ML RTUPB IV PRN ×7 (02:07→22:38)
[2019-12-03] MEDS: OXCARBAZEPINE 300 MG/5 ML SUSP 250ML/BOTTLE NG SCH ×3 (02:07→17:09)
[2019-12-03] MEDS: HEPARIN SOD (PORCINE) 5,000 UNIT/ML 1 ML VIAL SUBCUT SCH ×3 (05:15→22:35)
[2019-12-03] MEDS: HYDROCORTISONE SOD SUCCINATE INJ/PF 100 MG/2 ML SDV IV SCH ×2 (05:18→17:08)
[2019-12-03 05:41] LABS: ABSOLUTE LYMPHOCYTES (AUTO) 1.2 10^3/uL (0.5-4.7); ABSOLUTE MONOCYTES (AUTO) 0.8 10^3/uL (0.1-1.4); ABSOLUTE NEUT (AUTO) 8.5 10^3/uL (1.7-8.2); BASOPHILS % (AUTO) 0.2 % (0-2); EOSINOPHILS % (AUTO) 0.2 % (0-6); HEMATOCRIT 25.7 % (37.9-51.0); LYMPHOCYTES % (AUTO) 11.2 % (13-45); MEAN CORPUSCULAR HGB CONC 35.2 g/dL (32.0-36.0); MEAN CORPUSCULAR VOLUME 88 fl (80-97); MONOCYTES % (AUTO) 7.6 % (3-13); PLATELET COUNT 304 10^3/uL (150-450); RED BLOOD COUNT 2.91 10^6/uL (4.35-5.55); RED CELL DISTRIBUTION WIDTH 14.3 % (11.5-14.0); SEGMENTED NEUTROPHILS % (AUTO) 80.8 % (42-78); TOTAL CELLS COUNTED % (AUTO) 100 %; WHITE BLOOD COUNT 10.6 10^3/uL (4.0-10.5)
[2019-12-03 06:14] LABS: BLOOD UREA NITROGEN 22 mg/dL (7-20); CALCIUM 7.6 mg/dL (8.4-10.2); GLUCOSE 137 mg/dL (75-110); POTASSIUM 3.1 mmol/L (3.6-5.0)
[2019-12-03 06:20] LABS: CARBON DIOXIDE 32 mmol/L (22-30); CHLORIDE 106 mmol/L (98-107)
[2019-12-03 06:25] LABS: ANION GAP 2 (5-19)
[2019-12-03] MEDS ORDERED: IPRATROPIUM/ALBUTEROL 0.5-2.5 MG/3 ML AMPUL NEB PRN (09:55)
[2019-12-03] MEDS: POTASSIUM CHLORIDE 20 MEQ PACKET NG SCH ×2 (10:09→17:08)
[2019-12-03] MEDS: FAMOTIDINE 20 MG TABLET PO SCH ×2 (10:09→22:36)
[2019-12-03] MEDS: QUETIAPINE FUMARATE 25 MG TABLET PO SCH ×2 (10:09→22:36)
--- NOTE | 2019-12-03 10:54 | PDOC CRITICAL CARE PROG REPORT ---
General Date:: 12/03/19 ICU Day:: 12 Hospital Day:: 13 Resuscitation Status: Do Not Resuscitate Medical Power of Environmental Laboratory Technician: Mother and sister Events in the past 12 to 24 Hours:: Respiratory status tenuous. Review of systems relevant to events:: Respiratory, neurological. Reason for ICU Addmission:: Respiratory failure, risk of reintubation and mental status. - Medications: Medications reviewed and adjusted accordingly: Yes Vasopressors:: None. Sedation:: Presedex. Physical Exam Vital Signs: Temp Pulse Resp BP Pulse Ox 99.0 F 105 H 24 H 150/80 H 96 12/03/19 08:00 12/03/19 08:21 12/03/19 08:21 12/03/19 08:00 12/03/19 08:21 Intake & Output 12/02/19 12/03/19 12/04/19 06:59 06:59 06:59 Intake Total 2565 2196 100 Output Total 1030 3890 125 Balance 1535 -1694 -25 Weight 95.6 kg 91.7 kg Weight/Height Weight 91.7 kg Height 5 ft 7 in General appearance: PRESENT: no acute distress Head exam: PRESENT: atraumatic, normocephalic Eye exam: PRESENT: conjunctiva pink, EOMI, PERRLA. ABSENT: scleral icterus Ear exam: PRESENT: normal external ear exam Mouth exam: PRESENT: moist, tongue midline Respiratory exam: PRESENT: accessory muscle use, crackles, rhonchi, tachypnea Cardiovascular exam: PRESENT: RRR. ABSENT: diastolic murmur, rubs, systolic murmur GI/Abdominal exam: PRESENT: normal bowel sounds, soft. ABSENT: distended, guarding, mass, organolmegaly, rebound, tenderness Rectal exam: PRESENT: deferred Gentrourinary exam: PRESENT: indwelling catheter Extremities exam: PRESENT: full ROM. ABSENT: calf tenderness, clubbing, pedal edema Neurological exam: PRESENT: altered, awake, other - Baseline autism. Psychiatric exam: PRESENT: agitated Laboratory/Radiographs Laboratory Results: 12/03/19 05:29 12/03/19 05:29 12/03/19 12/03/19 05:29 05:29 WBC 10.6 H RBC 2.91 L Hgb 9.0 L Hct 25.7 L MCV 88 MCH 31.0 MCHC 35.2 RDW 14.3 H Plt Count 304 Seg Neutrophils % 80.8 H Sodium 140.1 Potassium 3.1 L Chloride 106 Carbon Dioxide 32 H Anion Gap 2 L BUN 22 H Creatinine 0.48 L Est GFR ( Amer) > 60 Glucose 137 H Calcium 7.6 L 11/19/19 20:35 Troponin I < 0.012 NT-Pro-B Natriuret Pep 109 Impressions: Abdomen X-Ray 11/19/19 22:02 IMPRESSION: 1. Moderate colonic fecal retention, but no small bowel distention. Abdomen/Pelvis CT 11/24/19 08:23 IMPRESSION: 1. LINEAR RADIOPAQUE DENSITY IN THE RECTUM. UNCERTAIN ETIOLOGY. THIS MAY BE RELATED TO PRIOR SURGERY OR COULD BE AN INGESTED OR INSERTED OBJECT. 2. BILATERAL PULMONARY INFILTRATES AND PLEURAL EFFUSIONS. 3. NO OTHER SIGNIFICANT OR ACUTE PROCESS IN THE ABDOMEN OR PELVIS. KUB X-Ray 12/01/19 01:52 IMPRESSION: NG tube tip in the stomach. Chest X-Ray 12/02/19 00:00 IMPRESSION: Increased patchy bilateral and asymmetric parenchymal opacities. All labs, radiographs, diagnostic studies and EKGs were personally reviewed: Yes In addition, reports of radiographic and diagnostic studies were read: Yes Assessment and Plan - Diagnosis (1) Autism Is this a current diagnosis for this admission?: Yes Plan: This makes it quite difficult to care for him as he has little insight into his condition. (2) Endotracheal tube present Is this a current diagnosis for this admission?: Yes Plan: Resolved (3) Hypocalcemia Is this a current diagnosis for this admission?: Yes Plan: Still low, need to replace. (4) Acute respiratory failure with hypoxia Is this a current diagnosis for this admission?: Yes Plan: So far he has maintained his airway. However he has quite a bit of secretions that need suctioning. He is a DNR but if intubation is needed we need to clarify this with family. (5) Hypokalemia Is this a current diagnosis for this admission?: Yes Plan: Still low, need to replace. Plan Summary: Keep in ICU for now. Needs respiratory care and need to see if reintubation is in agreement with family. Critical Time Critical Time (minutes): 35 Level of Care: ICU Anticipated discharge: SNF Within: Other - Too soon to tell. -: 1. The care of a critical patient is a dynamic process. This note is a loss control representative synopsis but static in nature. The timeframe for treatments given in order is not necessarily the actual time these treatments may have been done. 2. This patient requires critical care secondary to ongoing requirements for therapy not offered or safe outside the critical care environment. Transfer to a lower level of care will result in altered life or limb morbidity and mortality. 3. Multidisciplinary rounds completed. 4. ABCDE bundle addressed.
[2019-12-04] MEDS: DEXMEDETOMIDINE IN 0.9 % NACL 400 MCG/100 ML RTUPB IV PRN ×9 (01:50→22:50)
[2019-12-04] MEDS: OXCARBAZEPINE 300 MG/5 ML SUSP 250ML/BOTTLE NG SCH ×3 (01:51→17:32)
[2019-12-04] MEDS ORDERED: ACETYLCYSTEINE 10% NEB 400 MG/4 ML VIAL NEB ONE (03:18)
[2019-12-04 03:22] LABS: ANION GAP 5 (5-19); BLOOD UREA NITROGEN 23 mg/dL (7-20); CALCIUM 7.7 mg/dL (8.4-10.2); CARBON DIOXIDE 29 mmol/L (22-30); CHLORIDE 108 mmol/L (98-107); GLUCOSE 125 mg/dL (75-110); POTASSIUM 3.6 mmol/L (3.6-5.0)
[2019-12-04] MEDS ORDERED: ACETYLCYSTEINE 10% NEB 400 MG/4 ML VIAL ONE (03:31)
[2019-12-04] MEDS ORDERED: IPRATROPIUM/ALBUTEROL 0.5-2.5 MG/3 ML AMPUL NEB ONE (03:32)
[2019-12-04] MEDS: GUAIFENESIN SYRP 200 MG/10 ML UDC NG PRN ×2 (03:33→21:44)
[2019-12-04] MEDS: ALBUTEROL SULFATE 0.083% NEB 2.5 MG/3 ML AMPUL NEB PRN (03:35)
[2019-12-04] MEDS: HEPARIN SOD (PORCINE) 5,000 UNIT/ML 1 ML VIAL SUBCUT SCH ×3 (05:54→21:44)
[2019-12-04] MEDS: HYDROCORTISONE SOD SUCCINATE INJ/PF 100 MG/2 ML SDV IV SCH ×2 (05:54→17:31)
[2019-12-04] MEDS: IPRATROPIUM/ALBUTEROL 0.5-2.5 MG/3 ML AMPUL NEB SCH ×3 (08:20→20:35)
--- NOTE | 2019-12-04 08:50 | PDOC CRITICAL CARE PROG REPORT ---
General Date:: 12/04/19 ICU Day:: 13 Hospital Day:: 14 Resuscitation Status: Do Not Resuscitate Medical Power of Slackman: Mother and sister Events in the past 12 to 24 Hours:: Pulled NG out, reinserted, much good coughing. Review of systems relevant to events:: Respiratory, Neurological. Reason for ICU Addmission:: Respiratory failure, risk of reintubation and mental status. - Medications: Medications reviewed and adjusted accordingly: Yes Vasopressors:: None Sedation:: Precedex. Physical Exam Vital Signs: Temp Pulse Resp BP Pulse Ox 100.6 F H 80 36 H 139/78 H 96 12/04/19 06:00 12/04/19 03:30 12/04/19 06:00 12/04/19 05:25 12/04/19 06:00 Intake & Output 12/03/19 12/04/19 12/05/19 06:59 06:59 06:59 Intake Total 2196 685 100 Output Total 3890 1130 Balance -1694 -445 100 Weight 91.7 kg 92 kg Weight/Height Weight 92 kg Height 5 ft 7 in General appearance: PRESENT: no acute distress, disheveled Head exam: PRESENT: atraumatic, normocephalic Eye exam: PRESENT: conjunctiva pink, EOMI, PERRLA. ABSENT: scleral icterus Ear exam: PRESENT: normal external ear exam Mouth exam: PRESENT: moist, tongue midline Respiratory exam: PRESENT: rhonchi, tachypnea, unlabored Cardiovascular exam: PRESENT: RRR. ABSENT: diastolic murmur, rubs, systolic murmur GI/Abdominal exam: PRESENT: normal bowel sounds, soft. ABSENT: distended, guarding, mass, organolmegaly, rebound, tenderness Rectal exam: PRESENT: deferred Gentrourinary exam: PRESENT: indwelling catheter Extremities exam: PRESENT: full ROM, +1 edema. ABSENT: calf tenderness, clubbing, pedal edema Musculoskeletal exam: PRESENT: normal inspection Neurological exam: PRESENT: alert, altered, awake, CN II-XII grossly intact Laboratory/Radiographs Laboratory Results: 12/03/19 05:29 12/04/19 03:00 12/04/19 03:00 Sodium 141.6 Potassium 3.6 Chloride 108 H Carbon Dioxide 29 Anion Gap 5 BUN 23 H Creatinine 0.49 L Est GFR ( Amer) > 60 Glucose 125 H Calcium 7.7 L 11/19/19 20:35 Troponin I < 0.012 NT-Pro-B Natriuret Pep 109 Impressions: Abdomen X-Ray 11/19/19 22:02 IMPRESSION: 1. Moderate colonic fecal retention, but no small bowel distention. Abdomen/Pelvis CT 11/24/19 08:23 IMPRESSION: 1. LINEAR RADIOPAQUE DENSITY IN THE RECTUM. UNCERTAIN ETIOLOGY. THIS MAY BE RELATED TO PRIOR SURGERY OR COULD BE AN INGESTED OR INSERTED OBJECT. 2. BILATERAL PULMONARY INFILTRATES AND PLEURAL EFFUSIONS. 3. NO OTHER SIGNIFICANT OR ACUTE PROCESS IN THE ABDOMEN OR PELVIS. KUB X-Ray 12/01/19 01:52 IMPRESSION: NG tube tip in the stomach. Chest X-Ray 12/02/19 00:00 IMPRESSION: Increased patchy bilateral and asymmetric parenchymal opacities. All labs, radiographs, diagnostic studies and EKGs were personally reviewed: Yes In addition, reports of radiographic and diagnostic studies were read: Yes Assessment and Plan - Diagnosis (1) Autism Is this a current diagnosis for this admission?: Yes Plan: Again, making his understanding of his condition difficult. Evideced by attempting to replace his NG tube. (2) Hypocalcemia Is this a current diagnosis for this admission?: Yes (3) Acute respiratory failure with hypoxia Is this a current diagnosis for this admission?: Yes Plan: He still needs either bipap or high flow to maintain O2 saturations. He did desa turate to low 80s during the ordeal to replace NG tube last night. (4) Hypokalemia Is this a current diagnosis for this admission?: Yes Plan: Resolved. Plan Summary: He is still tachpnic although unlabored. Low grade temp likely contributing, Still needs the ICU for resiratory monitoring. Critical Time Critical Time (minutes): 35 Level of Care: ICU Anticipated discharge: SNF Within: Other - Cant speculate. -: 1. The care of a critical patient is a dynamic process. This note is a surgical device sales representative synopsis but static in nature. The timeframe for treatments given in order is not necessarily the actual time these treatments may have been done. 2. This patient requires critical care secondary to ongoing requirements for therapy not offered or safe outside the critical care environment. Transfer to a lower level of care will result in altered life or limb morbidity and mortality. 3. Multidisciplinary rounds completed. 4. ABCDE bundle addressed.
[2019-12-04] MEDS: POTASSIUM CHLORIDE 20 MEQ PACKET NG SCH ×2 (11:50→17:31)
[2019-12-04] MEDS: FAMOTIDINE 20 MG TABLET PO SCH ×2 (11:50→21:44)
[2019-12-04] MEDS: QUETIAPINE FUMARATE 25 MG TABLET PO SCH ×2 (11:50→21:44)
[2019-12-05] MEDS: DEXMEDETOMIDINE IN 0.9 % NACL 400 MCG/100 ML RTUPB IV PRN ×10 (00:29→21:44)
[2019-12-05] MEDS: IPRATROPIUM/ALBUTEROL 0.5-2.5 MG/3 ML AMPUL NEB SCH ×4 (02:09→20:40)
[2019-12-05] MEDS: OXCARBAZEPINE 300 MG/5 ML SUSP 250ML/BOTTLE NG SCH ×3 (02:56→17:07)
[2019-12-05 04:24] LABS: ANION GAP 6 (5-19); BLOOD UREA NITROGEN 19 mg/dL (7-20); CALCIUM 7.9 mg/dL (8.4-10.2); CARBON DIOXIDE 27 mmol/L (22-30); CHLORIDE 107 mmol/L (98-107); GLUCOSE 133 mg/dL (75-110); POTASSIUM 3.8 mmol/L (3.6-5.0)
[2019-12-05] MEDS: HEPARIN SOD (PORCINE) 5,000 UNIT/ML 1 ML VIAL SUBCUT SCH ×3 (05:18→21:40)
[2019-12-05] MEDS: HYDROCORTISONE SOD SUCCINATE INJ/PF 100 MG/2 ML SDV IV SCH ×2 (05:18→17:07)
--- NOTE | 2019-12-05 09:31 | PDOC CRITICAL CARE PROG REPORT ---
General Date:: 12/05/19 ICU Day:: 14 Hospital Day:: 15 Resuscitation Status: Do Not Resuscitate Medical Power of Pile Driving Supervisor: Mother and sister Events in the past 12 to 24 Hours:: Essentially no change in status. Review of systems relevant to events:: Respiratory, neurological. Reason for ICU Addmission:: Respiratory failure, risk of reintubation and mental status. - Medications: Medications reviewed and adjusted accordingly: Yes Vasopressors:: None Sedation:: None Physical Exam Vital Signs: Temp Pulse Resp BP Pulse Ox 100.9 F H 93 30 H 148/87 H 100 12/05/19 08:00 12/05/19 08:35 12/05/19 09:06 12/05/19 08:00 12/05/19 09:06 Intake & Output 12/04/19 12/05/19 12/06/19 06:59 06:59 06:59 Intake Total 685 963 93 Output Total 1130 1365 290 Balance -445 -402 -197 Weight 92 kg 92.7 kg Weight/Height Weight 92.7 kg Height 5 ft 7 in General appearance: PRESENT: no acute distress, disheveled Head exam: PRESENT: atraumatic, normocephalic Eye exam: PRESENT: conjunctival injection Ear exam: PRESENT: normal external ear exam Mouth exam: PRESENT: moist, tongue midline Respiratory exam: PRESENT: accessory muscle use, crackles, rhonchi, tachypnea Cardiovascular exam: PRESENT: RRR. ABSENT: diastolic murmur, rubs, systolic murmur GI/Abdominal exam: PRESENT: normal bowel sounds, soft. ABSENT: distended, guarding, mass, organolmegaly, rebound, tenderness Rectal exam: PRESENT: deferred Gentrourinary exam: PRESENT: indwelling catheter Extremities exam: PRESENT: +1 edema Musculoskeletal exam: PRESENT: normal inspection Neurological exam: PRESENT: altered, awake Psychiatric exam: PRESENT: agitated - At times. Skin exam: PRESENT: dry, intact, warm. ABSENT: cyanosis, rash Laboratory/Radiographs Laboratory Results: 12/03/19 05:29 12/05/19 03:35 12/05/19 03:35 Sodium 140.4 Potassium 3.8 Chloride 107 Carbon Dioxide 27 Anion Gap 6 BUN 19 Creatinine 0.45 L Est GFR ( Amer) > 60 Glucose 133 H Calcium 7.9 L 11/19/19 20:35 Troponin I < 0.012 NT-Pro-B Natriuret Pep 109 Impressions: Abdomen X-Ray 11/19/19 22:02 IMPRESSION: 1. Moderate colonic fecal retention, but no small bowel distention. Abdomen/Pelvis CT 11/24/19 08:23 IMPRESSION: 1. LINEAR RADIOPAQUE DENSITY IN THE RECTUM. UNCERTAIN ETIOLOGY. THIS MAY BE RELATED TO PRIOR SURGERY OR COULD BE AN INGESTED OR INSERTED OBJECT. 2. BILATERAL PULMONARY INFILTRATES AND PLEURAL EFFUSIONS. 3. NO OTHER SIGNIFICANT OR ACUTE PROCESS IN THE ABDOMEN OR PELVIS. KUB X-Ray 12/01/19 01:52 IMPRESSION: NG tube tip in the stomach. Chest X-Ray 12/02/19 00:00 IMPRESSION: Increased patchy bilateral and asymmetric parenchymal opacities. All labs, radiographs, diagnostic studies and EKGs were personally reviewed: Yes In addition, reports of radiographic and diagnostic studies were read: Yes Assessment and Plan - Diagnosis (1) Autism Is this a current diagnosis for this admission?: Yes Plan: No change (2) Hypocalcemia Is this a current diagnosis for this admission?: Yes Plan: Normal when adjusted for albumin. Check ionized (3) Acute respiratory failure with hypoxia Is this a current diagnosis for this admission?: Yes Plan: He is still requiring bipap. Will try and get back to high flow. (4) Hypokalemia Is this a current diagnosis for this admission?: Yes Plan: Resolved Plan Summary: Would like to get to high flow today. Critical Time Critical Time (minutes): 35 Level of Care: ICU Anticipated discharge: Other - halfway Within: Other - Too soon to tell. -: 1. The care of a critical patient is a dynamic process. This note is a represe ntative synopsis but static in nature. The timeframe for treatments given in order is not necessarily the actual time these treatments may have been done. 2. This patient requires critical care secondary to ongoing requirements for therapy not offered or safe outside the critical care environment. Transfer to a lower level of care will result in altered life or limb morbidity and mortality. 3. Multidisciplinary rounds completed. 4. ABCDE bundle addressed.
[2019-12-05] MEDS: ALBUTEROL SULFATE 0.083% NEB 2.5 MG/3 ML AMPUL NEB PRN (09:34)
[2019-12-05] MEDS: FAMOTIDINE 20 MG TABLET PO SCH ×2 (10:47→21:40)
[2019-12-05] MEDS: POTASSIUM CHLORIDE 20 MEQ PACKET NG SCH ×2 (10:48→17:07)
[2019-12-05] MEDS: QUETIAPINE FUMARATE 25 MG TABLET PO SCH ×2 (10:48→21:40)
[2019-12-06] MEDS: DEXMEDETOMIDINE IN 0.9 % NACL 400 MCG/100 ML RTUPB IV PRN ×9 (00:04→18:14)
[2019-12-06] MEDS: IPRATROPIUM/ALBUTEROL 0.5-2.5 MG/3 ML AMPUL NEB SCH ×3 (01:59→13:31)
[2019-12-06] MEDS: OXCARBAZEPINE 300 MG/5 ML SUSP 250ML/BOTTLE NG SCH ×3 (02:11→18:09)
[2019-12-06 03:58] LABS: BLOOD UREA NITROGEN 16 mg/dL (7-20); CALCIUM 7.9 mg/dL (8.4-10.2); CARBON DIOXIDE 29 mmol/L (22-30); GLUCOSE 137 mg/dL (75-110); POTASSIUM 3.8 mmol/L (3.6-5.0)
[2019-12-06 04:03] LABS: ANION GAP 5 (5-19); CHLORIDE 105 mmol/L (98-107)
[2019-12-06] MEDS: HEPARIN SOD (PORCINE) 5,000 UNIT/ML 1 ML VIAL SUBCUT SCH ×2 (05:24→13:50)
[2019-12-06] MEDS: ACETAMINOPHEN 325 MG TABLET PO PRN (05:27)
[2019-12-06] MEDS: GUAIFENESIN SYRP 200 MG/10 ML UDC NG PRN (05:27)
[2019-12-06] MEDS: HYDROCORTISONE SOD SUCCINATE INJ/PF 100 MG/2 ML SDV IV SCH ×2 (05:27→18:09)
--- NOTE | 2019-12-06 08:51 | PDOC CRITICAL CARE PROG REPORT ---
General Date:: 12/06/19 ICU Day:: 15 Hospital Day:: 16 Resuscitation Status: Do Not Resuscitate Medical Power of Production Sampler: Mother and sister Events in the past 12 to 24 Hours:: Essentially no significant change. Review of systems relevant to events:: Respiratory and neurological. Reason for ICU Addmission:: Respiratory failure, risk of reintubation and mental status. - Medications: Medications reviewed and adjusted accordingly: Yes Vasopressors:: None Sedation:: Precedex. Physical Exam Vital Signs: Temp Pulse Resp BP Pulse Ox 99.9 F 78 0 L 136/81 H 96 12/06/19 05:06 12/06/19 02:00 12/06/19 06:00 12/06/19 05:27 12/06/19 06:00 Intake & Output 12/05/19 12/06/19 12/07/19 06:59 06:59 06:59 Intake Total 963 2165 Output Total 1365 1740 Balance -402 425 Weight 92.7 kg 91.3 kg Weight/Height Weight 91.3 kg Height 5 ft 7 in General appearance: PRESENT: mild distress Head exam: PRESENT: atraumatic, normocephalic Eye exam: PRESENT: conjunctiva pink, EOMI, PERRLA. ABSENT: scleral icterus Ear exam: PRESENT: normal external ear exam Mouth exam: PRESENT: moist, tongue midline Respiratory exam: PRESENT: crackles, retraction, rhonchi, tachypnea Cardiovascular exam: PRESENT: RRR. ABSENT: diastolic murmur, rubs, systolic murmur Vascular exam: PRESENT: normal capillary refill GI/Abdominal exam: PRESENT: normal bowel sounds, soft. ABSENT: distended, guarding, mass, organolmegaly, rebound, tenderness Rectal exam: PRESENT: deferred Gentrourinary exam: PRESENT: indwelling catheter Extremities exam: PRESENT: full ROM. ABSENT: calf tenderness, clubbing, pedal edema Neurological exam: PRESENT: altered, awake Skin exam: PRESENT: dry, intact, warm. ABSENT: cyanosis, rash Laboratory/Radiographs Laboratory Results: 12/03/19 05:29 12/06/19 03:20 12/06/19 03:20 Sodium 138.9 Potassium 3.8 Chloride 105 Carbon Dioxide 29 Anion Gap 5 BUN 16 Creatinine 0.47 L Est GFR ( Amer) > 60 Glucose 137 H Calcium 7.9 L 11/19/19 20:35 Troponin I < 0.012 NT-Pro-B Natriuret Pep 109 Impressions: Abdomen X-Ray 11/19/19 22:02 IMPRESSION: 1. Moderate colonic fecal retention, but no small bowel distention. Abdomen/Pelvis CT 11/24/19 08:23 IMPRESSION: 1. LINEAR RADIOPAQUE DENSITY IN THE RECTUM. UNCERTAIN ETIOLOGY. THIS MAY BE RELATED TO PRIOR SURGERY OR COULD BE AN INGESTED OR INSERTED OBJECT. 2. BILATERAL PULMONARY INFILTRATES AND PLEURAL EFFUSIONS. 3. NO OTHER SIGNIFICANT OR ACUTE PROCESS IN THE ABDOMEN OR PELVIS. KUB X-Ray 12/01/19 01:52 IMPRESSION: NG tube tip in the stomach. Chest X-Ray 12/02/19 00:00 IMPRESSION: Increased patchy bilateral and asymmetric parenchymal opacities. All labs, radiographs, diagnostic studies and EKGs were personally reviewed: Yes In addition, reports of radiographic and diagnostic studies were read: Yes Assessment and Plan - Diagnosis (1) Autism Is this a current diagnosis for this admission?: Yes Plan: This makes his care difficult as he does not understand the reasons for treatment and he remains scared and seems to be inpain with many treatments. Be cause of this and the fact that he seems to have reached a plateau, his mother and sister have suggested at this point to make him comfortable. He is already DNR and he may benefit from hospice. (2) Hypocalcemia Is this a current diagnosis for this admission?: Yes Plan: Getting better but sill a bit low. Hold on replacements for now. (3) Acute respiratory failure with hypoxia Is this a current diagnosis for this admission?: Yes Plan: He is hypoxic any time we ty him off bipap. Which is a treatment he neither likes nor understands. (4) Hypokalemia Is this a current diagnosis for this admission?: Yes Plan: Resolved. Plan Summary: Allow friends and family to see then withdraw care. Critical Time Critical Time (minutes): 35 Level of Care: ICU Anticipated discharge: Hospice Within: within 24 hours -: 1. The care of a critical patient is a dynamic process. This note is a pharmacy services representative synopsis but static in nature. The timeframe for treatments given in order is not necessarily the actual time these treatments may have been done. 2. This patient requires critical care secondary to ongoing requirements for th erapy not offered or safe outside the critical care environment. Transfer to a lower level of care will result in altered life or limb morbidity and mortality. 3. Multidisciplinary rounds completed. 4. ABCDE bundle addressed.
[2019-12-06 10:12] VITALS: BP 140/79
[2019-12-06] MEDS: FAMOTIDINE 20 MG TABLET PO SCH (10:31)
[2019-12-06] MEDS: QUETIAPINE FUMARATE 25 MG TABLET PO SCH (10:31)
[2019-12-06] MEDS: POTASSIUM CHLORIDE 20 MEQ PACKET NG SCH ×2 (10:31→18:09)
[2019-12-06] MEDS ORDERED: MORPHINE SULFATE 10 MG/ML INJ IV ONE ×2 (11:00→12:30)
[2019-12-06] MEDS ORDERED: MORPHINE SULFATE 10 MG/ML INJ ONE (12:20)
[2019-12-06] MEDS: MORPHINE SULFATE 10 MG/ML INJ IV PRN ×8 (14:16→23:22)
[2019-12-06] MEDS ORDERED: MIDAZOLAM 2 MG/2 ML INJ ONE (19:03)
[2019-12-06] MEDS: MIDAZOLAM 2 MG/2 ML INJ IV PRN ×3 (20:18→22:50)
--- NOTE | 2019-12-07 00:57 | PDOC DISCHARGE SUMMARY ---
Impression - Admit/DC Date/PCP Admission Date/Primary Care Provider: 11/19/19 22:14 KELSEY HAWLEY PA-C Discharge Date: 12/07/19 - Discharge Diagnosis (1) Acute respiratory failure with hypoxia Is this a current diagnosis for this admission?: Yes (2) Autism Is this a current diagnosis for this admission?: Yes (3) Cerebral palsy Is this a current diagnosis for this admission?: Yes (4) Delirium due to another medical condition, acute, hyperactive Is this a current diagnosis for this admission?: Yes (5) Hypoxemia Is this a current diagnosis for this admission?: Yes (6) Pneumonia Is this a current diagnosis for this admission?: Yes (7) Constipation Is this a current diagnosis for this admission?: Yes (8) Hypocalcemia Is this a current diagnosis for this admission?: Yes - Additional Information Resuscitation Status: Comfort Measures Only Home Medications: Diazepam 5 mg PO DAILYP PRN 08/22/16 Escitalopram Oxalate 20 mg PO QAM 08/22/16 Fexofenadine HCl [Silvina] 180 mg PO QAM 08/22/16 Lactulose [Constulose] 20 gm PO BID 08/22/16 Linaclotide [Linzess] 290 mcg PO QAM 08/22/16 Omeprazole 20 mg PO QAM 08/22/16 Oxcarbazepine [Trileptal] 300 mg PO TID 08/22/16 Quetiapine Fumarate 300 mg PO TID 08/22/16 Zolpidem Tartrate 5 mg PO QHS PRN 08/22/16 Acetaminophen [Acetaminophen Extra Strength] 1,000 mg PO Q6HP PRN 11/20/19 Diphenhydramine HCl [Benadryl 25 mg Capsule] 25 mg PO BID PRN 11/20/19 Loperamide HCl [Loperamide] 2 mg PO TIDP PRN 11/20/19 Mag Hydrox/Al Hydrox/Simeth [Maalox Plus Susp 30 Udcup] 30 ml PO Q6HP PRN 11/20/19 Magnesium Hydroxide [Milk of Magnesia 30 ml Udcup] 30 ml PO HSP PRN 11/20/19 Neomycin/Bacitracin/Polymyxinb [Triple Antibiotic Ointment Pkt] 1 oz TOP DAILYP PRN 11/20/19 History of Present Illiness History of Present Illness: JUAN RAMON BANEGAS is a 44 year old male with PMH of cerebral palsy, severe autism with recurrent abdominal complications including fecal impactions. [facility] with 5days of non-productive cough and fever. He was admitted to the hospitalist service with bilateral lung infiltrates on chest xray and being treated antibiotics and O2 therapy. Hospital Course Hospital Course: Mr. Banegas was admitted to the hospital from a [facility] facility with cough and fever. He was admitted to the medical floor and continued to decline in respiratory status. A CARDIAC CATH LAB RADIOLOGY TECHNOLOGIST was called when he developed respiratory distress, hypoxia and was found to be minimally responsive. He was emergently intubated at that time and admitted to the ICU service. His respiratory status continued to decline while intubated and progressed to ARDS with elevated O2 requirements and advance settings on vent. He had slow improvement in respiratory status and was eventually extubated. There was great difficulty with suctioning and getting pt to cough and deep breath due to mental disability. Medications and Hi-flow or BiPAP was used to try to help with breathing and managing secretions and maintaining adequate pulse ox. Family discussion was held with attending regarding prognosis vs reintubation and decision was made to make pt comfort. Physical Exam Vital Signs: Temp Pulse Resp BP Pulse Ox 99.7 F 103 H 53 H 140/79 H 100 12/06/19 10:00 12/06/19 20:00 12/06/19 10:00 12/06/19 10:00 12/06/19 10:00 Intake & Output 12/05/19 12/06/19 12/07/19 06:59 06:59 06:59 Intake Total 963 2165 587 Output Total 1365 1740 130 Balance -402 425 457 Weight 92.7 kg 91.3 kg Results Laboratory Results: WBC 10.6 10^3/uL (4.0-10.5) H 12/03/19 05:29 RBC 2.91 10^6/uL (4.35-5.55) L 12/03/19 05:29 Hgb 9.0 g/dL (13.5-17.0) L 12/03/19 05:29 Hct 25.7 % (37.9-51.0) L 12/03/19 05:29 MCV 88 fl (80-97) 12/03/19 05:29 MCH 31.0 pg (27.0-33.4) 12/03/19 05:29 MCHC 35.2 g/dL (32.0-36.0) 12/03/19 05:29 RDW 14.3 % (11.5-14.0) H 12/03/19 05:29 Plt Count 304 10^3/uL (150-450) 12/03/19 05:29 Lymph % (Auto) 11.2 % (13-45) L 12/03/19 05:29 Titus % (Auto) 7.6 % (3-13) 12/03/19 05:29 Eos % (Auto) 0.2 % (0-6) 12/03/19 05:29 Baso % (Auto) 0.2 % (0-2) 12/03/19 05:29 Absolute Neuts (auto) 8.5 10^3/uL (1.7-8.2) H 12/03/19 05:29 Absolute Lymphs (auto) 1.2 10^3/uL (0.5-4.7) 12/03/19 05:29 Absolute Monos (auto) 0.8 10^3/uL (0.1-1.4) 12/03/19 05:29 Absolute Eos (auto) 0.0 10^3/uL (0.0-0.6) 12/03/19 05:29 Absolute Basos (auto) 0.0 10^3/uL (0.0-0.2) 12/03/19 05:29 Total Counted 100 12/01/19 03:22 Seg Neutrophils % 80.8 % (42-78) H 12/03/19 05:29 Seg Neuts % (Manual) 75 % (42-78) 12/01/19 03:22 Band Neutrophils % 3 % (3-5) 12/01/19 03:22 Lymphocytes % (Manual) 11 % (13-45) L 12/01/19 03:22 Monocytes % (Manual) 11 % (3-13) 12/01/19 03:22 Eosinophils % (Manual) 0 % (0-6) 12/01/19 03:22 Basophils % (Manual) 0 % (0-2) 12/01/19 03:22 Abs Neuts (Manual) 9.8 10^3/uL (1.7-8.2) H 12/01/19 03:22 Abs Lymphs (Manual) 1.4 10^3/uL (0.5-4.7) 12/01/19 03:22 Abs Monocytes (Manual) 1.4 10^3/uL (0.1-1.4) 12/01/19 03:22 Absolute Eos (Manual) 0.0 10^3/uL (0.0-0.6) 12/01/19 03:22 Abs Basophils (Manual) 0.0 10^3/uL (0.0-0.2) 12/01/19 03:22 Nucleated RBCs 1 /100 WBC (0) 11/28/19 06:44 Giant Platelets PRESENT 11/28/19 06:44 Platelet Comment ADEQUATE 12/01/19 03:22 Polychromasia SLIGHT 11/28/19 06:44 Anisocytosis SLIGHT 12/01/19 03:22 Tear Drop Cells SLIGHT 11/27/19 04:04 RBC Morph Comment NORMO-CYTIC/CHROMIC 11/30/19 04:01 PT 15.7 SEC (11.4-15.4) H 11/24/19 08:25 INR 1.24 11/24/19 08:25 APTT 55.3 SEC (23.5-35.8) H 11/24/19 08:25 Carbonic Acid 1.02 mmol/L (1.05-1.35) L 12/01/19 14:05 HCO3/H2CO3 Ratio 25:1 12/01/19 14:05 ABG pH 7.50 (7.35-7.45) H 12/01/19 14:05 ABG pCO2 34.0 mmHg (35-45) L 12/01/19 14:05 ABG pO2 40.2 mmHg (80-100) L* 12/01/19 14:05 ABG HCO3 26.0 mmol/L (20-24) H 12/01/19 14:05 ABG Total CO2 27.0 mmol/L (23-27) 12/01/19 14:05 ABG O2 Saturation 80.6 % (94-98) L 12/01/19 14:05 ABG Base Excess 2.9 mmol/L 12/01/19 14:05 VBG pH 7.34 (7.30-7.42) 11/19/19 20:35 VBG pCO2 54.0 mmHg (35-63) 11/19/19 20:35 VBG HCO3 28.2 mmol/L (20-32) 11/19/19 20:35 VBG Base Excess 1.4 mmol/L 11/19/19 20:35 FiO2 72% 12/01/19 14:05 Sodium 138.9 mmol/L (137-145) 12/06/19 03:20 Potassium 3.8 mmol/L (3.6-5.0) 12/06/19 03:20 Chloride 105 mmol/L (98-107) 12/06/19 03:20 Carbon Dioxide 29 mmol/L (22-30) 12/06/19 03:20 Anion Gap 5 (5-19) 12/06/19 03:20 BUN 16 mg/dL (7-20) 12/06/19 03:20 Creatinine 0.47 mg/dL (0.52-1.25) L 12/06/19 03:20 Est GFR ( Amer) > 60 (>60) 12/06/19 03:20 Est GFR (MDRD) Non-Af > 60 (>60) 12/06/19 03:20 Glucose 137 mg/dL (75-110) H 12/06/19 03:20 POC Glucose 131 mg/dL (70-110) H 12/05/19 12:19 Lactic Acid 1.8 mmol/L (0.7-2.1) 11/19/19 20:35 Calcium 7.9 mg/dL (8.4-10.2) L 12/06/19 03:20 Ionized Calcium Christie 1.05 mmol/L (1.14-1.30) L 11/26/19 02:26 Phosphorus 2.5 mg/dL (2.5-4.5) 12/01/19 03:22 Magnesium 2.3 mg/dL (1.6-2.3) 12/01/19 03:22 Total Bilirubin 0.4 mg/dL (0.2-1.3) 11/25/19 04:45 Direct Bilirubin 0.1 mg/dL (0.0-0.4) 11/25/19 04:45 Neonat Total Bilirubin Not Reportable 11/25/19 04:45 Neonat Direct Bilirubin Not Reportable 11/25/19 04:45 Neonat Indirect Bili Not Reportable 11/25/19 04:45 AST 194 U/L (17-59) H 11/25/19 04:45 ALT 58 U/L (<50) H 11/25/19 04:45 Alkaline Phosphatase 54 U/L (38-126) 11/25/19 04:45 Troponin I < 0.012 ng/mL 11/19/19 20:35 NT-Pro-B Natriuret Pep 109 pg/mL (<125) 11/19/19 20:35 Total Protein 4.5 g/dL (6.3-8.2) L 11/25/19 04:45 Albumin 2.2 g/dL (3.5-5.0) L 11/25/19 04:45 Triglycerides 401 mg/dL (<150) H 11/29/19 04:36 Amylase 44 U/L (30-110) 11/28/19 09:00 Lipase 131.8 U/L (23-300) 11/28/19 09:00 Urine Color WALTRE 11/28/19 11:36 Urine Appearance SLIGHTLY-CLOUDY 11/28/19 11:36 Urine pH 6.0 (5.0-9.0) 11/28/19 11:36 Ur Specific [place] 1.033 11/28/19 11:36 Urine Protein 30 mg/dL (NEGATIVE) H 11/28/19 11:36 Urine Glucose (UA) NEGATIVE mg/dL (NEGATIVE) 11/28/19 11:36 Urine Ketones NEGATIVE mg/dL (NEGATIVE) 11/28/19 11:36 Urine Blood NEGATIVE (NEGATIVE) 11/28/19 11:36 Urine Nitrite NEGATIVE (NEGATIVE) 11/28/19 11:36 Urine Bilirubin NEGATIVE (NEGATIVE) 11/28/19 11:36 Urine Urobilinogen 2.0 mg/dL (<2.0) H 11/28/19 11:36 Ur Leukocyte Esterase TRACE (NEGATIVE) H 11/28/19 11:36 Urine WBC (Auto) 2 /HPF 11/28/19 11:36 Urine RBC (Auto) 41 /HPF 11/28/19 11:36 Urine Bacteria (Auto) TRACE /HPF 11/28/19 11:36 Squamous Epi Cells Auto 1 /HPF 11/19/19 19:20 Urine Mucus (Auto) OCC /LPF 11/28/19 11:36 Urine Ascorbic Acid 40 (NEGATIVE) H 11/28/19 11:36 Stl C. Difficile GDH Ag NEGATIVE (NEGATIVE) 11/24/19 07:44 Stl C.difficile Tox A&B NEGATIVE (NEGATIVE) 11/24/19 07:44 Oxcarbazepine 12 ug/mL (10-35) 11/29/19 04:40 Influenza A (Rapid) NEGATIVE (NEGATIVE) 11/19/19 22:10 Influenza B (Rapid) NEGATIVE (NEGATIVE) 11/19/19 22:10 11/19/19 20:35 Troponin I < 0.012 NT-Pro-B Natriuret Pep 109 Impressions: Chest X-Ray 11/19/19 17:35 IMPRESSION: Pneumonia. Vascular congestion. Abdomen X-Ray 11/19/19 22:02 IMPRESSION: 1. Moderate colonic fecal retention, but no small bowel distention. Chest X-Ray 11/21/19 00:00 IMPRESSION: 1. Intubated 2. Dense right upper lobe infiltrate, likely pneumonia 3. Improved aeration of left lung Chest X-Ray 11/21/19 00:00 IMPRESSION: Enteric tube. Chest X-Ray 11/24/19 00:00 IMPRESSION: Likely no significant change in the appearance of the chest. Chest X-Ray 11/24/19 08:11 IMPRESSION: CENTRAL LINE PLACEMENT IN SATISFACTORY POSITION WITH NO PNEUMOTHORAX. OTHERWISE NO CHANGE. DIFFUSE AIRSPACE DISEASE. Abdomen/Pelvis CT 11/24/19 08:23 IMPRESSION: 1. LINEAR RADIOPAQUE DENSITY IN THE RECTUM. UNCERTAIN ETIOLOGY. THIS MAY BE RELATED TO PRIOR SURGERY OR COULD BE AN INGESTED OR INSERTED OBJECT. 2. BILATERAL PULMONARY INFILTRATES AND PLEURAL EFFUSIONS. 3. NO OTHER SIGNIFICANT OR ACUTE PROCESS IN THE ABDOMEN OR PELVIS. KUB X-Ray 11/25/19 14:28 IMPRESSION: The tip and side hole of the enteric tube project past the gastroesophageal junction and within the gastric lumen. Chest X-Ray 11/26/19 05:00 IMPRESSION: No change in diffuse bilateral airspace disease Tubes and lines unchanged Chest X-Ray 11/27/19 06:00 IMPRESSION: Persistent bilateral alveolar airspace disease slightly improved from prior study. Chest X-Ray 11/28/19 00:00 IMPRESSION: Good position of support apparatus. No pneumothorax. KUB X-Ray 11/28/19 00:00 IMPRESSION: 1. NG tube with tip and side-port in appropriate position within the stomach. Chest X-Ray 11/28/19 06:00 IMPRESSION: High position of endotracheal tube. See follow-up report. No pneumothorax. Chest X-Ray 11/29/19 06:00 IMPRESSION: STABLE APPEARANCE OF THE CHEST. SUPPORT DEVICES UNCHANGED. Chest X-Ray 11/30/19 00:00 IMPRESSION: Marked progression of disease with diffuse parenchymal opacities throughout both lungs. KUB X-Ray 12/01/19 01:52 IMPRESSION: NG tube tip in the stomach. Chest X-Ray 12/02/19 00:00 IMPRESSION: Increased patchy bilateral and asymmetric parenchymal opacities. Plan Critical Time: 30 Level of Care: ICU Stroke Is this a Stroke Patient?: No Acute Heart Failure - Is this a Heart Failure Patient?: No
--- NOTE | 2019-12-07 01:16 | Death Summary ---
Summary Date : 12/07/19 Time of :: 00:03 Resuscitation Status: Comfort Measures Only Hospital Course:: This ROBOTICS SPECIALIST called to Nirmala Banegas's bedside by primary RN to assess the Mr. Banegas has . Patients sister was at bedside. No spontaneous movements were witnessed. There were no responses to verbal or tactile stimuli. Pupils were fixed and mid- dilated. No breath sounds were appreciated over the entire lung field and no respiratory effort noted. No carotid pulses were palpated or ascultated. No heart sounds were ascultated over the entire precordium. Mr. Banegas was pronounced at 00:03 on 12/07/2019. Sister was at the bedside on the phone calling remaining family members. Pt was made comfort by attending prior to passing.
== END 2019-12-07 00:03 | DRG 207 ==
LOC: ER 17:29 → EH 22:14 → 4W 11-20 00:07 → 3S 11-20 14:13 → ICU 11-21 01:21
PROVIDERS: ADMIT Internal Medicine; ATTEND Internal Medicine Critical Care Medicine
PROC: 5A1955Z Respiratory Ventilation, Greater than 96 Consecutive Hours (ICD-10-PCS; principal; 2019-11-21)
PROC: 0BH17EZ Insertion of Endotracheal Airway into Trachea, Via Natural or Artificial Opening (ICD-10-PCS; 2019-11-21)
PROC: 02HV33Z Insertion of Infusion Device into Superior Vena Cava, Percutaneous Approach (ICD-10-PCS; 2019-11-24)
DX: J96.01 Acute respiratory failure with hypoxia (principal); J18.9 Pneumonia, unspecified organism; F84.0 Autistic disorder; F05 Delirium due to known physiological condition; E83.51 Hypocalcemia; E87.6 Hypokalemia; G80.9 Cerebral palsy, unspecified; I10 Essential (primary) hypertension; E78.00 Pure hypercholesterolemia, unspecified; K21.9 Gastro-esophageal reflux disease without esophagitis; K59.01 Slow transit constipation; Z66 Do not resuscitate
CPT/HCPCS: 31500; 36415; 36556; 36600; 71045; 74018; 74019; 74176; 80048; 80053; 80183; 81001; 82150; 82330; 82803; 82962; 83605; 83690; 83735; 83880; 84100; 84132; 84478; 84484; 85025; 85027; 85610; 85730; 87040; 87070; 87086; 87205; 87324; 87449; 87804; 93005; 93010; 94002; 94003; 94640; 94660; 94668; 96365; 96372; 96375; 99238; 99291; 99292; J0610; C1887; C9113; J0330; J0456; J0696; J1630; J1642; J1644; J1720; J1940; J1956; J2060; J2250; J2270; J2704; J2920; J3010; J3480; J3486; J3490; J7030; J7060; J7120; J7620